=== PATIENT | female | born 1955 | race Caucasian/White ===

== ENCOUNTER 2017-05-28 10:25 | Emergency (ER) | payer BC ==
[~2017-05-28] VITALS: Ht 160 cm; Wt 64.7 kg
[~2017-05-28 10:25] MED LIST: ACET500C OR; EQUATE SLEEP AID PO; IBUP400T OR; No Historical Meds; VARE1TA OR
[2017-05-28] MEDS ORDERED: ONDANSETRON 4MG/2ML VIAL (J2405) IV ONE (11:00)
[2017-05-28] MEDS ORDERED: NS 1,000 ML IV ONE (11:00)
[2017-05-28] MEDS ORDERED: MORPHINE 4 MG/ML 1ML SYRINGE IV ONE ×2 (11:00→12:30)
[2017-05-28 11:58] LABS: ALBUMIN 3.9 GM/DL (3.2-5.2); ALBUMIN/GLOBULIN RATIO 1.08 (1.00-1.93); ALKALINE PHOSPHATASE 103 U/L (45-117); ALT/SGPT 20 U/L (12-78); AMYLASE 65 U/L (25-115); ANION GAP 6 MEQ/L (8-16); AST/SGOT 14 U/L (15-37); BILIRUBIN,DIRECT < 0.1 MG/DL (0.0-0.2); BILIRUBIN,TOTAL 0.4 MG/DL (0.2-1.0); BLOOD UREA NITROGEN 13 MG/DL (7-18); CALCIUM LEVEL 8.9 MG/DL (8.5-10.1); CARBON DIOXIDE LEVEL 27 MEQ/L (21-32); CHLORIDE LEVEL 108 MEQ/L (98-107); CREATININE FOR GFR 0.75 MG/DL (0.55-1.02); GLOMERULAR FILTRATION RATE > 60.0 (>51); GLUCOSE, FASTING 102 MG/DL (70-105); SODIUM LEVEL 141 MEQ/L (136-145); TOTAL PROTEIN 7.5 GM/DL (6.4-8.2)
[2017-05-28 12:25] LABS: BASO # 0.1 K/mm3 (0.0-0.2); BASO % 0.8 % (0.0-1.0); EOS # 0.1 K/mm3 (0.0-0.50); EOS % 0.8 % (0.0-3.0); LARGE UNSTAINED CELL # 0.2 K/mm3 (0.0-0.4); LARGE UNSTAINED CELL % 1.9 % (0.0-4.0); LYMPH # 2.7 K/mm3 (1.5-4.5); LYMPH % 33.9 % (24.0-44.0); MEAN CORPUSCULAR HEMOGLOBIN 33.3 pg (27.0-33.0); MEAN CORPUSCULAR HGB CONC 35.5 g/dl (32.0-36.5); MEAN CORPUSCULAR VOLUME 93.8 fl (80.0-96.0); MONO # 0.4 K/mm3 (0.0-0.8); MONO % 4.8 % (0.0-5.0); NEUTROPHILS # 4.6 K/mm3 (1.8-7.7); NEUTROPHILS % 57.8 % (36.0-66.0); PLATELET COUNT, AUTOMATED 258 k/mm3 (150-450); RED CELL DISTRIBUTION WIDTH 11.8 % (11.5-14.5); WHITE BLOOD COUNT 7.9 K/mm3 (4.0-10.0)
[2017-05-28] MEDS ORDERED: ISOVUE-370 76% 100ML VIAL (Q9967) As Ordered ONE (12:29)
[2017-05-28 12:42] LABS: CONTROL LINE UCG INT CTR LINE PRESENT
--- NOTE | 2017-05-28 12:54 | REP ---
Clinical: Epigastric and right upper quadrant pain. Technique: Axial contrast enhanced images from the lung bases to the pubic symphysis using 100 ml Isovue 370 intravenous contrast material with coronal and sagittal re-formations. Comparison: 10/01/2014. Findings: Lung bases demonstrate mild bibasilar interstitial and dependent changes. Visualized heart and pericardium normal. Liver, spleen, pancreas, bilateral adrenal glands and kidneys are normal. The patient is status post cholecystectomy. The enteric system is without obstruction or acute inflammatory process. Scattered diverticula noted without acute diverticulitis. Pelvis demonstrates normal bladder. Heterogeneous myomatous changes to the uterus noted. No ascites. No adenopathy. No free air. No obvious mass lesion. Abdominal aorta and vasculature without aneurysm or dissection. Musculoskeletal structures demonstrate degenerative changes. Impression: 1. Myomatous changes to the uterus. 2. No acute abdominopelvic pathology otherwise appreciated. Signed by Valerio Carlos MD 05/28/2017 12:45 P
[2017-05-28 13:53] VITALS: BP 112/75
== END 2017-05-28 13:55 | disposition home or self-care (01) ==
LOC: M ED 10:25
DX: K29.00 Acute gastritis without bleeding (principal); K58.0 Irritable bowel syndrome with diarrhea; Z87.19 Personal history of other diseases of the digestive system; F17.210 Nicotine dependence, cigarettes, uncomplicated; Z88.5 Allergy status to narcotic agent; Z88.6 Allergy status to analgesic agent
CPT/HCPCS: 74177; 80048; 80076; 81001; 82150; 83690; 84702; 84703; 85025; 96361; 96374; 96375; 96376; 99283; J2405; Q9967

== ENCOUNTER → 2017-09-15 | Outpatient (CLI) | payer BC ==
[~2017-09-15] MED LIST changes: +GASTROGRAFIN SOLUTION 30ML (Q9963) As Ordered ONE; +ISOVUE-370 76% 100ML VIAL (Q9967) As Ordered ONE
--- NOTE | 2017-09-16 07:25 | REP ---
Clinical: Rectal mass. Technique: Axial contrast enhanced images from the lung bases to the pubic symphysis using oral and 100 ml Isovue 370 intravenous contrast material with precontrast images of the abdomen as well as coronal and sagittal re-formations. Comparison: 05/28/2017. Findings: Lung bases demonstrate chronic interstitial changes and mild scarring along with small scattered bullae and subtle right lower lobe subpleural fibrosis. Visualized portions of the heart and pericardium are normal. Liver, spleen, pancreas, bilateral adrenal glands and kidneys are normal. The patient is status post cholecystectomy. The enteric system is without obstruction or acute inflammatory process. By CT evaluation no obvious rectal mass is identified and the perirectal and perineal fat appear normal. Pelvis demonstrates normal bladder and age-appropriate uterus/adnexa although myomatous changes to the uterus are suggested. No ascites. No adenopathy. No obvious abdominopelvic mass lesion. Vasculature is within normal limits. Surrounding musculoskeletal structures demonstrates age-related degenerative changes. Impression: 1. Lung bases demonstrate chronic interstitial changes as noted above. 2. Myomas changes to the uterus suggested. 3. No obvious enteric or specifically rectal mass lesion identified. 4. No further acute abdominopelvic pathology appreciated. Signed by Valerio Carlos MD 09/16/2017 07:16 A
== END ==
LOC: M RAD 13:03
PROVIDERS: ATTEND Internal Medicine Gastroenterology
DX: J84.9 Interstitial pulmonary disease, unspecified (principal); D25.9 Leiomyoma of uterus, unspecified; R19.00 Intra-abdominal and pelvic swelling, mass and lump, unspecified site
CPT/HCPCS: 74178; Q9963; Q9967

== ENCOUNTER 2017-10-14 05:48 | Inpatient (IN) | payer BC ==
--- NOTE | 2017-10-13 15:07 | HPE ---
DATE OF ADMISSION: 10/14/2017 HISTORY OF PRESENT ILLNESS The patient is a 62-year-old female who underwent colonoscopy for some diarrhea and some rectal bleeding. 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 No evidence of definitive invasive component was associated with this. PAST MEDICAL HISTORY: Significant for history of arthritis, history of headache, history of heartburn reflux, history of insomnia, history of irritable bowel syndrome, history of pancreatitis, history of cholecystectomy, history of tubal ligation, history of tonsillectomy, history of right breast cyst removal. MEDICATIONS: - Aleve - omeprazole PHYSICAL EXAMINATION: Reveals a 62-year-old female who looks stated age. HEENT is unremarkable. Neck is supple without adenopathy. Lungs are clear to auscultation without crackles, wheezes or rhonchi. Heart is regular without murmur. Abdomen is soft, nondistended, nontender. No splenomegaly is appreciated. No guarding. No rebound. No peritoneal signs. IMPRESSION AND PLAN: The patient has a colon cancer at the rectosigmoid junction and the plan is for a laparoscopic low anterior resection. The risks, as well as benefits have been discussed with her at length, those including, but not limited to infection, bleeding, damage to surrounding structures including bowel, bladder, nerves, vessels, kidney, ureter, pancreas, spleen and possible need for open operative intervention. She also understands there is a small risk for ostomy placement. She would like to proceed with laparoscopic colon resection as scheduled and will undergo a mechanical, as well as antibiotic bowel prep. Will have a Whiteside, TEDs and sequentials placed intraoperatively.
[2017-10-14] VITALS (9 sets, daily range): BP systolic 106–140; BP diastolic 60–75
[~2017-10-14] VITALS: Ht 160 cm; Wt 63.5 kg
[~2017-10-14 05:48] MED LIST changes: -GASTROGRAFIN SOLUTION 30ML (Q9963) As Ordered ONE; -ISOVUE-370 76% 100ML VIAL (Q9967) As Ordered ONE
[2017-10-14] MEDS ORDERED: ERTAPENEM SODIUM 1 GM in NS MINI-BAG PLUS 50 ML IV ONE (06:00)
[2017-10-14] MEDS ORDERED: LR 1,000 ML IV ONE (06:15)
[2017-10-14] MEDS ORDERED: BUPIVACAINE LIPOSOME/PF 1.3% 20 ML VIAL (13.3MG/ML)(EXPAREL) As Ordered ONE (07:15)
[2017-10-14] MEDS ORDERED: BUPIVACAINE/EPIN 0.25% 30 ML VIAL As Ordered ONE (07:15)
[2017-10-14] MEDS ORDERED: GLUCAGON FOR INJ 1 MG VIAL (J1610) As Ordered ONE (07:15)
[2017-10-14] MEDS ORDERED: PROPOFOL 200 MG/20 ML VIAL As Ordered ONE (07:17)
[2017-10-14] MEDS ORDERED: fentaNYL 250 MCG/5 ML INJECTION (J3010) As Ordered ONE (07:17)
[2017-10-14] MEDS ORDERED: LIDOCAINE 2% INJ 100 MG/5 ML SDV (FOR ANES.) As Ordered ONE (07:17)
[2017-10-14] MEDS ORDERED: ROCURONIUM BROMIDE 50 MG/5 ML VIAL/SYRINGE As Ordered ONE ×2 (07:17→08:24)
[2017-10-14] MEDS ORDERED: MIDAZOLAM INJ 2 MG/2 ML VIAL (J2250) As Ordered ONE (07:17)
[2017-10-14] MEDS ORDERED: PHENYLephrine HCL 500 MCG/5 ML (100MCG/ML) SYRINGE (J2370) As Ordered ONE (08:08)
[2017-10-14] MEDS ORDERED: ePHEDrine SULFATE 25 MG/5 ML(5MG/ML) SYRINGE As Ordered ONE (08:08)
[2017-10-14] MEDS ORDERED: GLYCOPYRROLATE INJ 0.2 MG/ML 2 ML VIAL As Ordered ONE (08:26)
[2017-10-14] MEDS ORDERED: NEOSTIGMINE 10 MG/10 ML VIAL (J2710) As Ordered ONE (08:26)
[2017-10-14] MEDS ORDERED: ONDANSETRON 4MG/2ML VIAL (J2405) As Ordered ONE (08:26)
[2017-10-14] MEDS ORDERED: HYDROmorphone HCL 2 MG/ML 1ML VIAL (J1170) As Ordered ONE (08:32)
[2017-10-14] MEDS ORDERED: BUPIVACAINE HCL 0.25% 30 ML VIAL As Ordered ONE (08:44)
[2017-10-14] MEDS ORDERED: NALOXONE INJ 0.4 MG/1 ML VIAL (J2310) IV PRN (10:30)
[2017-10-14] MEDS ORDERED: METOCLOPRAMIDE INJ 10MG/2ML VIAL (J2765) IV PRN (10:30)
[2017-10-14] MEDS ORDERED: IPRATROPIUM 0.5MG/ALBUTEROL 2.5MG INH SOL UD 3ML (DUONEB)(J7620) NEB PRN (10:30)
[2017-10-14] MEDS ORDERED: PROMETHAZINE INJ 25 MG/ML VIAL (J2550) IV PRN (10:30)
[2017-10-14] MEDS ORDERED: NALBUPHINE HCL 10 MG/ML AMP (J2300) IV PRN (10:30)
[2017-10-14] MEDS ORDERED: diphenhydrAMINE INJ 50MG/ML VIAL (J1200) IV PRN (10:30)
[2017-10-14] MEDS ORDERED: ONDANSETRON 4MG/2ML VIAL (J2405) IV PRN ×2 (10:30→11:15)
[2017-10-14] MEDS ORDERED: EPIDURAL/PCA KEYS XX PRN (10:30)
[2017-10-14] MEDS ORDERED: MORPHINE 1MG/ML IN 0.9% NACL 100ML IV BAG IV PRN (11:00)
[2017-10-14] MEDS ORDERED: NS 1,000 ML IV SCH (11:00)
[2017-10-14] MEDS ORDERED: MORPHINE 1MG/ML IN 0.9% NACL 100ML IV BAG As Ordered ONE (11:07)
[2017-10-14] MEDS ORDERED: LR 1,000 ML IV SCH (11:15)
[2017-10-14] MEDS ORDERED: fentaNYL 100 MCG/2 ML INJECTION (J3010) IV PRN (11:15)
[2017-10-14] MEDS ORDERED: MORPHINE 10 MG/ML 1ML VIAL As Ordered ONE (13:55)
[2017-10-14] MEDS ORDERED: KETOROLAC 30 MG/ML VIAL (J1885) As Ordered ONE (13:55)
[2017-10-14] MEDS: MORPHINE 2 MG/ML 1ML SYRINGE IV PRN ×3 (14:00→14:12)
[2017-10-14] MEDS: IPRATROPIUM 0.5MG/ALBUTEROL 2.5MG INH SOL UD 3ML (DUONEB)(J7620) NEB SCH ×3 (14:00→21:19)
[2017-10-14] MEDS: KETOROLAC 30 MG/ML VIAL (J1885) IV PRN ×2 (14:03→20:43)
[2017-10-14] MEDS: PANTOPRAZOLE 40MG INJ (PROTONIX) (C9113) IV SCH (15:09)
[2017-10-14] MEDS: NS 1,000 ML IV SCH ×2 (15:09→18:55)
[2017-10-15] VITALS: BP_SYST 116; BP_SYST 117; BP_DIAS 62; BP_DIAS 65
[2017-10-15] MEDS: NS 1,000 ML IV SCH ×3 (01:36→19:21)
[2017-10-15] MEDS: ONDANSETRON 4MG/2ML VIAL (J2405) IV PRN ×3 (03:02→15:58)
[2017-10-15] MEDS: KETOROLAC 30 MG/ML VIAL (J1885) IV PRN ×3 (03:03→15:44)
[2017-10-15 04:00] VITALS: BP 108/53
[2017-10-15] MEDS: IPRATROPIUM 0.5MG/ALBUTEROL 2.5MG INH SOL UD 3ML (DUONEB)(J7620) NEB SCH ×3 (06:07→20:00)
[2017-10-15 07:13] LABS: MEAN CORPUSCULAR HEMOGLOBIN 31.2 pg (27.0-33.0); MEAN CORPUSCULAR VOLUME 97.5 fl (80.0-96.0); PLATELET COUNT, AUTOMATED 217 10^3/uL (150-450); RED CELL DISTRIBUTION WIDTH 12.3 % (11.5-14.5); WHITE BLOOD COUNT 7.8 10^3/uL (4.0-10.0)
[2017-10-15 07:36] LABS: ANION GAP 5 MEQ/L (8-16); BLOOD UREA NITROGEN 7 MG/DL (7-18); CALCIUM LEVEL 7.5 MG/DL (8.8-10.2); CARBON DIOXIDE LEVEL 27 MEQ/L (21-32); CHLORIDE LEVEL 110 MEQ/L (98-107); CREATININE FOR GFR 0.62 MG/DL (0.55-1.02); GLOMERULAR FILTRATION RATE > 60.0 (>45); GLUCOSE, FASTING 108 MG/DL (80-110); POTASSIUM SERUM 3.9 MEQ/L (3.5-5.1); SODIUM LEVEL 142 MEQ/L (136-145)
[2017-10-15 08:00] VITALS: BP 118/66
[2017-10-15] MEDS: ERTAPENEM SODIUM 1 GM in NS MINI-BAG PLUS 50 ML IV SCH (08:14)
[2017-10-15] MEDS: PANTOPRAZOLE 40MG INJ (PROTONIX) (C9113) IV SCH (08:15)
[2017-10-15 12:00] VITALS: BP 107/55
[2017-10-15] MEDS ORDERED: ACETAMINOPHEN 500 MG TAB PO PRN (15:30)
[2017-10-15 16:00] VITALS: BP 124/59
[2017-10-15 20:00] VITALS: BP 102/51
[2017-10-15] MEDS: ACETAMINOPHEN 500 MG TAB PO PRN (21:04)
[2017-10-16] VITALS (7 sets, daily range): BP systolic 105–129; BP diastolic 55–74; O2SAT 92
[2017-10-16] MEDS: KETOROLAC 30 MG/ML VIAL (J1885) IV PRN ×3 (00:05→16:04)
[2017-10-16] MEDS: NS 1,000 ML IV SCH ×2 (00:05→12:41)
[2017-10-16] MEDS: IPRATROPIUM 0.5MG/ALBUTEROL 2.5MG INH SOL UD 3ML (DUONEB)(J7620) NEB SCH ×4 (02:00→19:39)
[2017-10-16 06:51] LABS: MEAN CORPUSCULAR HEMOGLOBIN 32.7 pg (27.0-33.0); MEAN CORPUSCULAR HGB CONC 33.4 g/dl (32.0-36.5); MEAN CORPUSCULAR VOLUME 97.7 fl (80.0-96.0); PLATELET COUNT, AUTOMATED 184 10^3/uL (150-450); RED CELL DISTRIBUTION WIDTH 11.9 % (11.5-14.5); WHITE BLOOD COUNT 7.6 10^3/uL (4.0-10.0)
[2017-10-16 07:16] LABS: ANION GAP 6 MEQ/L (8-16); BLOOD UREA NITROGEN 6 MG/DL (7-18); CALCIUM LEVEL 8.1 MG/DL (8.8-10.2); CARBON DIOXIDE LEVEL 26 MEQ/L (21-32); CHLORIDE LEVEL 110 MEQ/L (98-107); CREATININE FOR GFR 0.61 MG/DL (0.55-1.02); GLOMERULAR FILTRATION RATE > 60.0 (>45); GLUCOSE, FASTING 99 MG/DL (80-110); POTASSIUM SERUM 3.9 MEQ/L (3.5-5.1); SODIUM LEVEL 142 MEQ/L (136-145)
[2017-10-16] MEDS: ERTAPENEM SODIUM 1 GM in NS MINI-BAG PLUS 50 ML IV SCH (08:21)
[2017-10-16] MEDS: ONDANSETRON 4MG/2ML VIAL (J2405) IV PRN (08:21)
[2017-10-16] MEDS: PANTOPRAZOLE 40MG INJ (PROTONIX) (C9113) IV SCH (08:22)
[2017-10-16] MEDS: ACETAMINOPHEN 500 MG TAB PO PRN (08:24)
--- NOTE | 2017-10-16 13:54 | RO ---
DATE OF PROCEDURE: 10/14/2017 PREOPERATIVE DIAGNOSIS: Colon cancer rectosigmoid junction. POSTOPERATIVE DIAGNOSES: 1. Colon cancer rectosigmoid junction. 2. Epigastric hernia. PROCEDURE PERFORMED: 1. Laparoscopic low anterior resection with coloproctostomy. 2. Epigastric hernia repair. SURGEON: Dr. Adam Bowles. HAND SINGER: Dr. Chicho Brooks. (Dr. Brooks provided retraction exposure assistance with the colorectal anastomosis and closure of the epigastric hernia). ESTIMATED BLOOD LOSS: Minimal. FLUIDS: Crystalloid. ANESTHESIA: General endotracheal anesthesia. DISPOSITION: The patient was brought to the recovery room awake, alert hemodynamic stable. DESCRIPTION OF PROCEDURE: The patient was brought to the operating room and was given general anesthesia. After adequate anesthesia and preoperative antibiotics were given, the patient was prepped and draped in the usual sterile fashion. Next a periumbilical incision was made with skin knife. Electrocautery was used cut through dermis down to the fascia. Fascia was grasped with Hector clamps, elevated and Veress needle placed into the abdominal cavity and insufflated to 15 mm pressure. A dilating 10 mm trocar was placed at the umbilicus and there were some midline adhesions appreciated as well as left lower quadrant adhesions appreciated. Thus left upper quadrant, left lower quadrant 5 mm trocar were placed to take down these adhesions all the periumbilical/lower abdominal adhesions were taken down with harmonic scalpel and then some of the adhesions down in the pelvis were taken down as well with a harmonic scalpel. The right-sided 12 mm right lower quadrant as well as right upper quadrant 5 mm trocar was placed under direct visualization. Next, the patient was placed in steep Trendelenburg position and right side down and the small bowel was delivered out of the pelvis. There were some adhesions of the sigmoid colon up against the left lateral abdominal wall and down to the area in the iliac crest. These were taken down with harmonic scalpel suggesting that she may have had an episode of diverticulitis in the past. However, the bowel in this area appeared normal without evidence of stenosis or scarring. Dissection continued along the white line of Toldt down into the pelvis. Interestingly enough, she had a very redundant distal sigmoid colon but on a very short mesentery. Eventually, this was mobilized all the way down to the rectum on the white line of Toldt bilaterally down mobilizing this rectum distally and I could palpate with the trocars/instruments, at the level of the rectosigmoid junction, there was the mass that was appreciated. Thus dissection on the peritoneum on the right side was performed taking this down with harmonic scalpel and then taking care proximally as well, the inferior mesenteric artery/sigmoid branch was appreciated and then coming off of this was the rectal branch of the sigmoid. After this somewhat shortened mesentery was able to be mobilized, it was mobilized off the pelvic sidewall until I felt that I was proximal on this and the sigmoid branch coming off to the bowel in this area was able to be transected using a DAWN stapler at its origin. The mesentery had been previously transected in this area with the harmonic scalpel up to where I felt that this bowel would be able to be reached down in the pelvis. Clips were placed on the bowel in this area for marker when the resection was made later. The mesentery of the colon had been taken off its avascular plane posteriorly and dissection continued distally to where I felt the mid portion of the rectum was well circumscribed evaluated and then a dissection between the rectal branch and the rectum was performed bluntly and some harmonic scalpel. The rectal branch was taken distally in this area with an echelon white load as well. Good hemostasis was achieved and the bowel was resected using an echelon green load. After this, the pelvis was copiously irrigated until clear and the periumbilical incision was made larger and the bowel brought up through this site. The proximal bowel was opened at the level previously identified and a 25 EA sizer was placed into this and revealed that it fit easily but still I did not feel a 29 would allow this to be adequately placed/stretch enough. Thus the 29 EA anvil was placed in this proximal area. The bowel was resected with a DAWN stapler and the anvil brought out next to the anastomosis. This was reinforced along the tenia on this area with a #3-0 Vicryl surrounding the anvil. This was placed into the abdominal cavity and #1 Vicryl in a running manner, was used to close the fascia. I could palpate an epigastric hernia at this time and it was visualized during our dissection earlier but it was far enough that I was not able to close this from my periumbilical incision. Next, the anastomosis was created with an end-to-end anastomosis. The donuts were intact. Under insufflation, air insufflation was intact and no evidence of air leak was appreciated. The pelvis was copiously irrigated until clear and then the epigastric hernia was closed with two [id number] 0 Vicryl sutures in a transverse manner using a Rigo-Dempsey device. The right lower quadrant 12 mm trocar was also closed with a Rigo-Dempsey. All trocars were removed under direct visualization. The #1 Vicryl was used to finish off closing the incision. Gowns, gloves and irrigation were performed with a separate closure tray and eventually, all incisions were closed with kaushik. Dry sterile dressing was applied and previously a 19 Max-Valdez drain had been left in the pelvis and came out through a lateral 5 mm trocar site. This was sutured in place with a drain stitch. Aspiryl was placed in multiple areas, specifically in the epigastric area and periumbilical area prior to the patient awakening and the patient was brought to the recovery room awake, alert and hemodynamically stable. Sponge and needle counts correct times two.
[2017-10-17] VITALS: BP 130/74
[2017-10-17] MEDS: IPRATROPIUM 0.5MG/ALBUTEROL 2.5MG INH SOL UD 3ML (DUONEB)(J7620) NEB SCH ×4 (01:27→20:00)
[2017-10-17 04:00] VITALS: BP 138/69
[2017-10-17] MEDS: ONDANSETRON 4MG/2ML VIAL (J2405) IV PRN ×2 (04:49→20:04)
[2017-10-17 06:39] LABS: MEAN CORPUSCULAR HEMOGLOBIN 31.9 pg (27.0-33.0); MEAN CORPUSCULAR HGB CONC 33.5 g/dl (32.0-36.5); MEAN CORPUSCULAR VOLUME 95.1 fl (80.0-96.0); PLATELET COUNT, AUTOMATED 209 10^3/uL (150-450); RED CELL DISTRIBUTION WIDTH 11.9 % (11.5-14.5)
[2017-10-17 07:01] LABS: ANION GAP 5 MEQ/L (8-16); BLOOD UREA NITROGEN 9 MG/DL (7-18); CALCIUM LEVEL 8.2 MG/DL (8.8-10.2); CARBON DIOXIDE LEVEL 28 MEQ/L (21-32); CHLORIDE LEVEL 110 MEQ/L (98-107); CREATININE FOR GFR 0.48 MG/DL (0.55-1.02); GLOMERULAR FILTRATION RATE > 60.0 (>45); GLUCOSE, FASTING 99 MG/DL (80-110); POTASSIUM SERUM 3.9 MEQ/L (3.5-5.1); SODIUM LEVEL 143 MEQ/L (136-145)
[2017-10-17 08:00] VITALS: BP 143/72
[2017-10-17] MEDS: PANTOPRAZOLE 40MG INJ (PROTONIX) (C9113) IV SCH (08:34)
[2017-10-17 12:00] VITALS: BP 112/63
[2017-10-17] MEDS: traMADol 50 MG TAB PO PRN (12:02)
[2017-10-17 16:30] VITALS: BP 128/59
[2017-10-17 20:00] VITALS: BP 133/66
[2017-10-17] MEDS: KETOROLAC 30 MG/ML VIAL (J1885) IV PRN (20:05)
[2017-10-18] VITALS: BP 150/70
[2017-10-18] MEDS: IPRATROPIUM 0.5MG/ALBUTEROL 2.5MG INH SOL UD 3ML (DUONEB)(J7620) NEB SCH ×4 (01:31→19:12)
[2017-10-18 04:00] VITALS: BP 143/73
[2017-10-18] MEDS: ONDANSETRON 4MG/2ML VIAL (J2405) IV PRN (04:19)
[2017-10-18] MEDS: KETOROLAC 30 MG/ML VIAL (J1885) IV PRN ×2 (04:20→16:11)
[2017-10-18 06:56] LABS: MEAN CORPUSCULAR HEMOGLOBIN 31.9 pg (27.0-33.0); MEAN CORPUSCULAR VOLUME 93.8 fl (80.0-96.0); PLATELET COUNT, AUTOMATED 223 10^3/uL (150-450); RED CELL DISTRIBUTION WIDTH 11.7 % (11.5-14.5); WHITE BLOOD COUNT 5.6 10^3/uL (4.0-10.0)
[2017-10-18 07:24] LABS: ANION GAP 7 MEQ/L (8-16); CALCIUM LEVEL 8.4 MG/DL (8.8-10.2); CARBON DIOXIDE LEVEL 28 MEQ/L (21-32); CHLORIDE LEVEL 109 MEQ/L (98-107); CREATININE FOR GFR 0.53 MG/DL (0.55-1.02); GLOMERULAR FILTRATION RATE > 60.0 (>45); GLUCOSE, FASTING 94 MG/DL (80-110); POTASSIUM SERUM 3.7 MEQ/L (3.5-5.1); SODIUM LEVEL 144 MEQ/L (136-145)
[2017-10-18 07:31] LABS: BLOOD UREA NITROGEN 13 MG/DL (7-18)
[2017-10-18 08:00] VITALS: BP 142/71
[2017-10-18] MEDS: PANTOPRAZOLE 40MG TAB (PROTONIX) PO SCH (09:08)
[2017-10-18] MEDS: traMADol 50 MG TAB PO PRN ×2 (09:13→19:52)
[2017-10-18 12:00] VITALS: BP 129/73
[2017-10-18 16:00] VITALS: BP 131/69
[2017-10-18 20:00] VITALS: BP 137/65
[2017-10-19] VITALS (7 sets, daily range): BP systolic 124–162; BP diastolic 60–74
[2017-10-19] MEDS: KETOROLAC 30 MG/ML VIAL (J1885) IV PRN (00:04)
[2017-10-19] MEDS: IPRATROPIUM 0.5MG/ALBUTEROL 2.5MG INH SOL UD 3ML (DUONEB)(J7620) NEB SCH ×5 (01:20→23:41)
[2017-10-19 07:10] LABS: MEAN CORPUSCULAR HEMOGLOBIN 32.4 pg (27.0-33.0); MEAN CORPUSCULAR HGB CONC 34.5 g/dl (32.0-36.5); MEAN CORPUSCULAR VOLUME 93.8 fl (80.0-96.0); PLATELET COUNT, AUTOMATED 253 10^3/uL (150-450); RED CELL DISTRIBUTION WIDTH 11.8 % (11.5-14.5); WHITE BLOOD COUNT 4.9 10^3/uL (4.0-10.0)
[2017-10-19 07:39] LABS: ANION GAP 6 MEQ/L (8-16); BLOOD UREA NITROGEN 17 MG/DL (7-18); CALCIUM LEVEL 8.5 MG/DL (8.8-10.2); CARBON DIOXIDE LEVEL 31 MEQ/L (21-32); CHLORIDE LEVEL 107 MEQ/L (98-107); CREATININE FOR GFR 0.67 MG/DL (0.55-1.02); GLOMERULAR FILTRATION RATE > 60.0 (>45); GLUCOSE, FASTING 89 MG/DL (80-110); POTASSIUM SERUM 3.7 MEQ/L (3.5-5.1); SODIUM LEVEL 144 MEQ/L (136-145)
[2017-10-19] MEDS: PANTOPRAZOLE 40MG TAB (PROTONIX) PO SCH (07:58)
[2017-10-19] MEDS: traMADol 50 MG TAB PO PRN ×3 (07:58→20:13)
[2017-10-19] MEDS: DICYCLOMINE 10 MG CAP PO SCH ×2 (11:51→20:12)
[2017-10-20 04:00] VITALS: BP 134/74
[2017-10-20 07:07] LABS: MEAN CORPUSCULAR HEMOGLOBIN 32.1 pg (27.0-33.0); MEAN CORPUSCULAR HGB CONC 34.8 g/dl (32.0-36.5); MEAN CORPUSCULAR VOLUME 92.3 fl (80.0-96.0); PLATELET COUNT, AUTOMATED 262 10^3/uL (150-450); RED CELL DISTRIBUTION WIDTH 11.7 % (11.5-14.5); WHITE BLOOD COUNT 5.6 10^3/uL (4.0-10.0)
[2017-10-20 07:19] LABS: ANION GAP 4 MEQ/L (8-16); BLOOD UREA NITROGEN 12 MG/DL (7-18); CALCIUM LEVEL 8.5 MG/DL (8.8-10.2); CARBON DIOXIDE LEVEL 31 MEQ/L (21-32); CHLORIDE LEVEL 105 MEQ/L (98-107); CREATININE FOR GFR 0.62 MG/DL (0.55-1.02); GLOMERULAR FILTRATION RATE > 60.0 (>45); GLUCOSE, FASTING 90 MG/DL (80-110); POTASSIUM SERUM 3.9 MEQ/L (3.5-5.1); SODIUM LEVEL 140 MEQ/L (136-145)
[2017-10-20 07:40] VITALS: BP 145/71
[2017-10-20] MEDS: traMADol 50 MG TAB PO PRN (07:41)
[2017-10-20] MEDS: IPRATROPIUM 0.5MG/ALBUTEROL 2.5MG INH SOL UD 3ML (DUONEB)(J7620) NEB SCH ×2 (07:57→13:29)
[2017-10-20] MEDS ORDERED: BISACODYL 10 MG SUPP PR ONE (08:45)
[2017-10-20] MEDS: PANTOPRAZOLE 40MG TAB (PROTONIX) PO SCH (08:52)
[2017-10-20] MEDS: DICYCLOMINE 10 MG CAP PO SCH (08:52)
[2017-10-20] MEDS ORDERED: DOCUSATE SODIUM 100 MG CAP PO SCH (09:00)
[2017-10-20] MEDS ORDERED: COLA100C5 PO (11:43)
[2017-10-20] MEDS ORDERED: TRAM50TA2 PO (11:43)
[2017-10-20 12:30] VITALS: BP 173/72
== END 2017-10-20 14:00 | disposition home or self-care (01) | DRG 221 ==
LOC: M OR 05:48 → M PED 11:36
PROVIDERS: ADMIT Surgery; ATTEND Surgery
PROC: 0WQF4ZZ Repair Abdominal Wall, Percutaneous Endoscopic Approach (ICD-10-PCS; 2017-10-14)
PROC: 0DBN4ZZ Excision of Sigmoid Colon, Percutaneous Endoscopic Approach (ICD-10-PCS; principal; 2017-10-14 07:30)
DX: C19 Malignant neoplasm of rectosigmoid junction (principal); K21.9 Gastro-esophageal reflux disease without esophagitis; G47.00 Insomnia, unspecified; K58.9 Irritable bowel syndrome, unspecified; M19.90 Unspecified osteoarthritis, unspecified site; K43.9 Ventral hernia without obstruction or gangrene; Z79.899 Other long term (current) drug therapy

== ENCOUNTER → 2017-11-06 | Outpatient (REF) | payer BC ==
[~2017-11-06] MED LIST changes: +COLA100C5 PO; +TRAM50TA2 PO
== END ==
LOC: M LAB REF 09:55
PROVIDERS: ATTEND Surgery
DX: C18.9 Malignant neoplasm of colon, unspecified (principal)

== ENCOUNTER → 2018-01-26 | Outpatient (CLI) | payer BC ==
[2018-01-26 13:37] LABS: BASO % 0.4 % (0.0-1.0); EOS # 0.1 10^3/uL (0.0-0.50); EOS % 1.7 % (0.0-3.0); HEMATOCRIT 43.9 % (36.0-47.0); HEMOGLOBIN 15.1 g/dl (12.0-16.0); IMMATURE GRANULOCYTE % 0.1 % (0-3.0); LYMPH # 3.5 10^3/uL (1.5-4.5); LYMPH % 45.4 % (24.0-44.0); MEAN CORPUSCULAR HEMOGLOBIN 31.7 pg (27.0-33.0); MEAN CORPUSCULAR HGB CONC 34.4 g/dl (32.0-36.5); MONO # 0.4 10^3/uL (0.0-0.8); MONO % 4.8 % (0.0-5.0); NEUTROPHILS # 3.7 10^3/uL (1.8-7.7); NEUTROPHILS % 47.6 % (36.0-66.0); PLATELET COUNT, AUTOMATED 271 10^3/uL (150-450); RED BLOOD COUNT 4.77 10^6/uL (4.00-5.40); RED CELL DISTRIBUTION WIDTH 12.7 % (11.5-14.5); WHITE BLOOD COUNT 7.7 10^3/uL (4.0-10.0)
[2018-01-26 13:56] LABS: VITAMIN B12 LEVEL 918 PG/ML
[2018-01-26 13:57] LABS: FOLATE 15.2 NG/ML
[2018-01-26 13:58] LABS: ALBUMIN 4.4 GM/DL (3.2-5.2); ALBUMIN/GLOBULIN RATIO 1.42 (1.00-1.93); ALKALINE PHOSPHATASE 121 U/L (45-117); ALT/SGPT 17 U/L (12-78); ANION GAP 6 MEQ/L (8-16); AST/SGOT 11 U/L (7-37); BILIRUBIN,TOTAL 0.5 MG/DL (0.2-1.0); BLOOD UREA NITROGEN 12 MG/DL (7-18); CALCIUM LEVEL 9.2 MG/DL (8.8-10.2); CARBON DIOXIDE LEVEL 28 MEQ/L (21-32); CHLORIDE LEVEL 106 MEQ/L (98-107); CHOLESTEROL LEVEL 229 MG/DL (<200); CHOLESTEROL RISK RATIO 3.523 (<5); CREATININE FOR GFR 0.84 MG/DL (0.55-1.30); FERRITIN 33 NG/ML (8-252); FREE T4 1.02 NG/DL (0.76-1.46); GLOMERULAR FILTRATION RATE > 60.0 (>45); GLUCOSE, FASTING 101 MG/DL (70-100); HDL CHOLESTEROL 65 MG/DL (>40); IRON (FE) 101 UG/DL (50-170); LDL CHOLESTEROL 143.2 MG/DL (<100); NON-HDL-C 164 MG/DL; PERCENT SATURATION 31.5 % (13.2-45.0); POTASSIUM SERUM 4.2 MEQ/L (3.5-5.1); SODIUM LEVEL 140 MEQ/L (136-145); TOTAL IRON BINDING CAPACITY 321 UG/DL (250-450); TOTAL PROTEIN 7.5 GM/DL (6.4-8.2); TRIGLYCERIDES LEVEL 104 MG/DL (<150)
== END ==
LOC: M LAB 13:00
DX: Z79.899 Other long term (current) drug therapy (principal)
CPT/HCPCS: 82746

== ENCOUNTER → 2018-06-08 | Outpatient (CLI) | payer BC | LOC: M WUC 11:13 | DX: M54.5 Low back pain (principal) | CPT/HCPCS: 72110 ==

== ENCOUNTER 2020-04-01 13:11 | Emergency (ER) | payer BC ==
[~2020-04-01] VITALS: Ht 160 cm; Wt 71.5 kg
[2020-04-01 14:43] LABS: BASO # 0.1 10^3/uL (0.0-0.2); BASO % 0.5 % (0.0-1.0); EOS # 0.1 10^3/uL (0.0-0.5); EOS % 1.4 % (0.0-3.0); HEMATOCRIT 47.8 % (36.0-47.0); HEMOGLOBIN 16.3 g/dl (12.0-15.5); LYMPH # 3.3 10^3/uL (1.5-5.0); LYMPH % 35.8 % (24.0-44.0); MEAN CORPUSCULAR HEMOGLOBIN 31.8 pg (27.0-33.0); MEAN CORPUSCULAR HGB CONC 34.1 g/dl (32.0-36.5); MEAN CORPUSCULAR VOLUME 93.4 fl (80.0-96.0); MONO # 0.6 10^3/uL (0.0-0.8); MONO % 6.1 % (0.0-5.0); NEUTROPHILS # 5.2 10^3/uL (1.5-8.5); NEUTROPHILS % 55.9 % (36.0-66.0); PLATELET COUNT, AUTOMATED 358 10^3/uL (150-450); RED BLOOD COUNT 5.12 10^6/uL (4.00-5.40); WHITE BLOOD COUNT 9.3 10^3/uL (4.0-10.0)
[2020-04-01] MEDS ORDERED: ISOVUE-370 76% 100ML VIAL As Ordered ONE (14:44)
[2020-04-01 15:18] LABS: ALBUMIN 3.9 GM/DL (3.2-5.2); BILIRUBIN,DIRECT 0.1 MG/DL (0.0-0.2); BILIRUBIN,TOTAL 0.4 MG/DL (0.2-1.0); TOTAL PROTEIN 7.9 GM/DL (6.4-8.2)
--- NOTE | 2020-04-01 15:22 | REP ---
Clinical: Acute chest pain. Technique: Axial contrast enhanced images from the thoracic inlet to the upper abdomen using 75 ml Isovue 370 intravenous contrast material with coronal and sagittal re-formations. Findings: Satisfactory enhancement of the pulmonary vasculature is achieved and no filling defects are identified to suggest pulmonary embolus. Thoracic aorta is normal caliber without aneurysm or dissection. Heart and pericardium are normal. Lung [place] demonstrate chronic interstitial changes and evidence for emphysematous disease. Innumerable scattered bilateral small noncalcified nodules measure up to approximately 10 mm. Mild adenopathy noted. No consolidation. No effusion. Impression: 1. No evidence for pulmonary embolus. 2. Innumerable bilateral pulmonary nodules measuring up to approximately 10 mm. Findings are concerning for possible underlying metastatic disease and require correlation. 3. Chronic mild emphysematous disease. Electronically Signed by Valerio Carlos MD 04/01/2020 03:13 P
--- NOTE | 2020-04-01 16:16 | REP ---
Clinical: Pain on deep inspiration . Comparison: 10/08/2017 . Technique: PA and lateral. Findings: The mediastinum and cardiac silhouette are normal. The lung [place] are clear and without acute consolidation, effusion, or pneumothorax. The skeletal structures are intact and normal. Impression: 1. No acute cardiopulmonary process. Electronically Signed by Valerio Carlos MD 04/01/2020 04:07 P
--- NOTE | 2020-04-01 16:21 | REP ---
Clinical: Upper abdominal pain. Technique: Axial noncontrast images from the lung bases to the pubic symphysis with coronal and sagittal re-formations. Comparison: 09/15/2017. Findings: Liver, spleen, pancreas, bilateral adrenal glands and kidneys are essentially normal for noncontrast evaluation. 9 mm left adrenal adenoma is suggested and remains stable. The enteric system is without obstruction or acute inflammatory process. Normal cecum, terminal ileum and appendix identified in the right lower quadrant. Evidence for prior partial sigmoid resection/anastomoses noted. Pelvis demonstrates normal bladder and age-appropriate uterus/adnexa. No ascites. No free air. No adenopathy. Abdominal aorta without aneurysm. Musculoskeletal structures are intact. Small fat containing supraumbilical hernia noted. Musculoskeletal structures are intact. Impression: 1. No acute abdominopelvic pathology appreciated. 2. No ascites, focal inflammatory stranding, or adenopathy. 3. Small fat containing supraumbilical midline ventral hernia. Electronically Signed by Valerio Carlos MD 04/01/2020 04:13 P
[2020-04-01 17:02] VITALS: BP 136/81
--- NOTE | 2020-04-02 09:19 | ED PDOC ---
Post-Departure Follow-Up cta chest faxed to [facility] for fu Billie Clifford MD April 02, 2020 09:19
== END 2020-04-01 17:03 | disposition home or self-care (01) ==
LOC: M ED 13:11
DX: N63.10 Unspecified lump in the right breast, unspecified quadrant (principal); C19 Malignant neoplasm of rectosigmoid junction; R91.8 Other nonspecific abnormal finding of lung field; J43.9 Emphysema, unspecified; F17.210 Nicotine dependence, cigarettes, uncomplicated; Z88.5 Allergy status to narcotic agent; Z79.899 Other long term (current) drug therapy
CPT/HCPCS: 36415; 71046; 71275; 74176; 80047; 80076; 83690; 85025; 99284; Q9967

== ENCOUNTER → 2020-04-11 | Outpatient (CLI) | payer BC ==
--- NOTE | 2020-04-12 08:33 | REP ---
PET/CT: HISTORY: Staging colon carcinoma. 2.8 cm rectosigmoid adenocarcinoma post resection October 14, 2017. Innumerable bilateral lung lesions consistent with metastatic disease. COMPARISONS: Comparison CT abdomen and pelvis April 01, 2020. Comparison CT chest April 01, 2020. TECHNIQUE: 54 minutes following the intravenous injection of a 8.26 mCi dose of F-18 FDG, three-dimensional PET scintigraphy is acquired from the skull base to the proximal thighs. Triplanar noncontrast CT scanning is acquired through the same anatomic range for attenuation correction, and image registration with scan parameters optimized to minimize radiation exposure to the patient. PET scintigraphy and CT datasets were fused and displayed on a workstation with multiplanar and projection display capability. PET/CT FINDINGS: In the head and neck soft tissues, there is a normal-size hypermetabolic lymph node focus in the posterior aspect of the superficial lobe of the right parotid gland. This demonstrates maximum standard uptake value of 6.07. It measures under a centimeter and is of uncertain significance. A lymph node at the same location on the left shows a maximum standard uptake value of 3.07. No other head and neck abnormal uptake is appreciated. There are two lymph nodes visible in the mediastinum which do not appear pathologically enlarged. In the AP window region a lymph node demonstrates maximum SUV value 2.52 and in the precarinal region a lymph node measures SUV maximum of 2.77. These are felt to be equivocal. There is discernible metabolic activity in several of the multiple pulmonary nodules. One of these is in hypermetabolic range. This is posteriorly positioned in the right lower lobe. This nodule demonstrates maximum standard uptake value of 3.19. The other visible nodules demonstrate activity ranges well below the SUV value of 2.0. In the abdomen and pelvis, there is normal distribution of tracer. No abnormal hypermetabolic uptake is seen in the abdomen pelvis. IMPRESSION: There is visible metabolic activity in several of the larger pulmonary nodules. Only one of these is in the hypermetabolic range, 3.19. This is in the right lower lobe. Incidental note is made of hypermetabolic uptake in a normal size lymph node in the right parotid gland. This is of uncertain significance. Electronically Signed by Marbin Nelson MD 04/12/2020 10:55 A
== END ==
LOC: M PLARAD 15:24
PROVIDERS: ATTEND Internal Medicine Hematology & Oncology
DX: C18.7 Malignant neoplasm of sigmoid colon (principal); R91.8 Other nonspecific abnormal finding of lung field
CPT/HCPCS: 78815; A9552

== ENCOUNTER 2020-04-13 11:20 | Emergency (ER) | payer BC ==
[~2020-04-13] VITALS: Ht 160 cm; Wt 70.7 kg
[2020-04-13 11:21] VITALS: BP 108/67
== END 2020-04-13 12:22 | disposition home or self-care (01) ==
LOC: M ED 11:20

== ENCOUNTER → 2020-04-14 | Outpatient (CLI) | payer BC ==
[~2020-04-14] MED LIST changes: +PROHANCE 279.3MG/ML 15ML VIAL As Ordered ONE
--- NOTE | 2020-04-14 14:07 | REP ---
MRI BRAIN WITHOUT AND WITH IV CONTRAST: HISTORY: Metastatic colon carcinoma. Evaluate for metastasis. Comparison head CT study is from October 08, 2008. 14 mL of intravenous ProHance is administered. TECHNIQUE: Axial and sagittal imaging planes are utilized for T1- and T2-weighted scans. Sequences include spin-echo, fast spin echo, FLAIR, and diffusion weighted sequences. MRI FINDINGS: No bony calvarial lesion is seen. Craniocervical junction and upper cervical cord are unremarkable. No intraorbital lesion is seen. There is no MR evidence of significant paranasal sinus disease. The skull base and deep facial soft tissues are unremarkable and symmetric. Lateral, third, and fourth ventricles are normal in size and position. Fernandes-white differentiation pattern is normal above and below the tentorium. There is a single focus of T2 hyperintensity in the subcortical white matter of the right posterior frontal lobe consistent with minimal small vessel change. Fernandes-white differentiation pattern is otherwise normal. There is no evidence of intracranial mass lesion. Diffusion-weighted scans show no evidence of restricted diffusion to suggest acute ischemia or other abnormality. Postcontrast images show enhancement in normal vasculature. No abnormal intracranial contrast enhancement is appreciated. No evidence to suggest intracranial metastasis. IMPRESSION: There is no evidence of intracranial metastasis. Electronically Signed by Marbin Nelson MD 04/14/2020 02:47 P
== END ==
LOC: M RAD 10:51
PROVIDERS: ATTEND Internal Medicine Hematology & Oncology
DX: C18.9 Malignant neoplasm of colon, unspecified (principal)
CPT/HCPCS: 70553; A9576

== ENCOUNTER → 2020-04-21 | Outpatient (CLI) | payer BC ==
[~2020-04-21] MED LIST changes: -PROHANCE 279.3MG/ML 15ML VIAL As Ordered ONE
[2020-04-21 13:24] LABS: PLATELET COUNT, AUTOMATED 306 10^3/uL (150-450)
[2020-04-21 13:32] LABS: INR 0.92; PROTHROMBIN TIME 12.1 SECONDS (11.8-14.0)
[2020-04-21 13:33] LABS: PARTIAL THROMBOPLASTIN TIME 35.3 SECONDS (25.0-38.4)
[2020-04-21 14:19] LABS: CA19-9 TUMOR MARKER,CARBOHYDRA 5.7 U/ML (<35.0)
[2020-04-28 15:07] LABS: ANGIOTENSIN 1 CONVERTING ENZYM 28 U/L (14-82); ASPERGILLUS FLAVUS ABY Negative (Neg:<1:1); ASPERGILLUS FUMIGATUS ABY Negative (Neg:<1:1); ASPERGILLUS NIGER ABY Negative (Neg:<1:1); BLASTOMYCES ANTIBODY LEVEL Negative (Neg:<1:1); CRYPTOCOCCUS ANTIGEN SER Negative (Negative); HISTOPLASMOSIS ANTIBODY Negative (Neg:<1:1)
== END ==
LOC: M LAB 12:13
PROVIDERS: ATTEND Internal Medicine Pulmonary Disease
DX: Z01.812 Encounter for preprocedural laboratory examination (principal); R91.8 Other nonspecific abnormal finding of lung field

== ENCOUNTER → 2020-04-30 | Outpatient (CLI) | payer BC | LOC: M LABSMTC 10:20 | PROVIDERS: ATTEND Anesthesiology | DX: Z01.818 Encounter for other preprocedural examination (principal); Z11.59 Encounter for screening for other viral diseases | CPT/HCPCS: C9803; U0003 ==

== ENCOUNTER 2020-05-03 07:26 | Day surgery (SDC) | payer BC ==
[~2020-05-03] VITALS: Ht 160 cm; Wt 70.2 kg
[~2020-05-03 07:26] MED LIST changes: +LR 1,000 ML IV ONE
[2020-05-03] MEDS ORDERED: ONDANSETRON 4MG/2ML VIAL As Ordered ONE ×2 (08:26→10:22)
[2020-05-03] MEDS ORDERED: MIDAZOLAM INJ 2MG/2ML VIAL (J2250 PER 1MG) As Ordered ONE (08:26)
[2020-05-03] MEDS ORDERED: fentaNYL 100 MCG/2 ML INJECTION (J3010) As Ordered ONE ×2 (08:26→12:39)
[2020-05-03] MEDS ORDERED: ROCURONIUM BROMIDE 50 MG/5 ML VIAL As Ordered ONE (08:26)
[2020-05-03] MEDS ORDERED: propofoL 200 MG/20 ML VIAL As Ordered ONE (08:26)
[2020-05-03] MEDS ORDERED: dexameTHASONE 4 MG/ML 1ML VIAL (J1100 PER 1MG) As Ordered ONE (08:28)
[2020-05-03] MEDS ORDERED: LIDOCAINE 2% 100MG/5ML SDV (FOR ANES.) As Ordered ONE (08:29)
[2020-05-03] MEDS ORDERED: LACRILUBE (AKWA TEARS) OPHTH OINT 3.5 GM As Ordered ONE (08:33)
[2020-05-03] MEDS ORDERED: THROMBIN SOLN 5,000 UNITS VIAL As Ordered ONE (09:15)
[2020-05-03] MEDS ORDERED: EPINEPHrine 1MG/10ML SYRINGE 1.5IN As Ordered ONE (09:16)
[2020-05-03] MEDS ORDERED: CETACAINE SPRAY 5GM As Ordered ONE (09:16)
[2020-05-03] MEDS ORDERED: LIDOCAINE 1% MDV 20ML VIAL As Ordered ONE (09:16)
[2020-05-03] MEDS ORDERED: LIDOCAINE VISCOUS 2% SOLN 15ML UDC As Ordered ONE (09:16)
[2020-05-03] MEDS ORDERED: ePHEDrine SULFATE 25 MG/5 ML(5MG/ML) SYRINGE As Ordered ONE (10:14)
[2020-05-03] MEDS ORDERED: SUGAMMADEX SODIUM 500 MG/5 ML VIAL (BRIDION) As Ordered ONE (10:50)
[2020-05-03] MEDS ORDERED: IPRATROPIUM 0.5MG/ALBUTEROL 2.5MG INH SOL UD 3ML (DUONEB)(J7620) As Ordered ONE (11:15)
[2020-05-03] MEDS ORDERED: IPRATROPIUM 0.5MG/ALBUTEROL 2.5MG INH SOL UD 3ML (DUONEB)(J7620) NEB ONE (11:15)
[2020-05-03] MEDS ORDERED: ONDANSETRON 4MG/2ML VIAL IV PRN (11:30)
[2020-05-03] MEDS ORDERED: LR 1,000 ML IV SCH (11:30)
--- NOTE | 2020-05-03 11:49 | ROOR ---
Patient Name: Radha Moon Procedure Date: 05/03/2020 9:28 AM Date of : 1955 Admit Type: Outpatient Age: 64 Note Status: Finalized Attending MD: Delia Calderon MD Procedure: Bronchoscopy Indications: Multiple pulmonary nodules, Abnormal CT scan of chest Providers: Delia Calderon MD (Doctor) Referring MD: 1. No Referring Physician 1. No Referring Physician, Admin. (Referring MD) Requesting Physician: Medicines: General Anesthesia, Cetacaine topical, Epinephrine 1 mg/10 mL topical 4 mL total, Thrombin 5000 units Complications: Significant hemorrhage requiring epinephrine and topical thrombin Procedure: Pre-Anesthesia Assessment: - Prior to the procedure, a History and Physical was performed, and patient medications and allergies were reviewed. The patient's tolerance of previous anesthesia was also reviewed. The risks and benefits of the procedure and the sedation options and risks were discussed with the patient. All questions were answered, and informed consent was obtained. Prior Anticoagulants: The patient has taken no previous anticoagulant or antiplatelet agents. ASA Grade Assessment: III - A patient with severe systemic disease. After reviewing the risks and benefits, the patient was deemed in satisfactory condition to undergo the procedure. The Bronchoscope was introduced through the mouth, via the endotracheal tube (the patient was intubated for the procedure) and advanced to the tracheobronchial tree of both lungs. The procedure was accomplished without difficulty. The patient tolerated the procedure well. Findings: The endotracheal tube is in good position. The visualized portion of the trachea is of normal caliber. The rojelio is sharp. The tracheobronchial tree was examined to at least the first subsegmental level. Bronchial anatomy was normal; bronchial mucosa showed some pitting and webbing, there were no endobronchial lesions, and scant mucoid secretions. Electromagnetic navigation bronchoscopy utilizing the Euroling system with iLogic upgrade was performed. The CT scan was used for planning purposes. A virtual bronchoscopic image was generated using the planning software and the rojelio, left main bronchus rojelio, left lower lobe basilar segment, right upper lobe, right middle lobe and right lower lobe basilar segment registration points were marked on the virtual image. The target in the lateral segment of the right middle lobe was marked. A nodule approx 1 cm in size was found and a pathway was created. After a complete airway exam, the locatable guide/extended working channel was inserted and an automatic registration was performed by advancing the scope through the rojelio, left main bronchus rojelio, left lower lobe basilar segment, right upper lobe, right middle lobe and right lower lobe basilar segment. The navigation phase was then begun to locate the target lesion(s). Positioning off-center (in relation to the lesion) was confirmed using the Olympus radial probe US catheter. The locatable guide was removed from the extended working channel. Fluoroscopy guided transbronchial brushings of a nodule were obtained in the lateral segment of the right middle lobe with a needle brush and sent for routine cytology. Transbronchial brushing technique was selected because the sampling site was not visible endoscopically. Transbronchial needle aspirations of a nodule were performed in the lateral segment of the right middle lobe using GenCut and sent for routine cytology. The procedure was guided by fluoroscopy. Transbronchial needle aspiration technique was selected because the sampling site was not visible endoscopically. Transbronchial biopsies of a nodule were performed in the lateral segment of the right middle lobe using forceps and sent for histopathology examination. The procedure was guided by fluoroscopy. Transbronchial biopsy technique was selected because the sampling site was not visible endoscopically. An endobronchial ultrasound endoscope was utilized in order to assist with fine needle aspiration in the subcarinal area. Ultrasound evaluation of right paratracheal and left hilar lymph node did not show significantly enlarged lymph nodes. Transbronchial needle aspirations of a lymph node were performed in the subcarinal area using an Olympus EBUS-TBNA 21 gauge needle and sent for routine cytology. The procedure was guided by ultrasound. Transbronchial needle aspiration technique was selected because the sampling site was not visible endoscopically. Estimated blood loss: approx 200mls, which was treated with epinephrine, cold saline and thrombin topically. Impression: - Multiple pulmonary nodules - Abnormal CT scan of chest - The airway examination was normal. - Electromagnetic navigation bronchoscopy was performed. - Transbronchial brushings were obtained of RML nodule. - A transbronchial needle aspiration was performed of RML nodule. - Transbronchial lung biopsies were performed. - Endobronchial ultrasound was performed. - A transbronchial needle aspiration was performed of subcarinal lymph node. Recommendation: - Follow up with bronchoscopist as previously scheduled. Attending Participation: I personally performed the entire procedure. Delia Calderon MD 05/03/2020 11:49:20 AM Number of Addenda: 0 Note Initiated On: 05/03/2020 9:28 AM
[2020-05-03] MEDS ORDERED: ACETAMINOPHEN 1000MG 100ML IV BTL (OFIRMEV) (J0131 PER 10MG) As Ordered ONE (11:55)
[2020-05-03] MEDS ORDERED: ACETAMINOPHEN *IV* 1,000 MG IV ONE ×2 (12:00)
[2020-05-03] MEDS: fentaNYL 100 MCG/2 ML INJECTION (J3010) IV PRN ×2 (12:07→12:45)
--- NOTE | 2020-05-03 12:54 | REP ---
REASON: Status post bronchoscopy. COMPARISON: 04/01/2020 The technique utilized in obtaining the radiograph has magnified the cardiac silhouette and accentuated the interstitial markings. Since the last examination, a large opacity has developed in the right lower lobe. There is a diffuse increase in the interstitial markings accentuated by technique. The cardiac silhouette is magnified by technique. There is no change in the osseous structures. IMPRESSION: New right lower lobe opacity, as described above, with evidence of diffuse interstitial edema accentuated by technique. Right lower lobe pneumonia is suspected, however, asymmetric pulmonary edema cannot be ruled out. Electronically Signed by Linwood Peña DO 05/03/2020 01:29 P
[2020-05-03 15:09] VITALS: BP 102/63
== END 2020-05-03 15:16 | disposition home or self-care (01) ==
LOC: M SDC 07:26
PROVIDERS: ATTEND Internal Medicine Pulmonary Disease
DX: R91.8 Other nonspecific abnormal finding of lung field (principal); J45.909 Unspecified asthma, uncomplicated; Z85.038 Personal history of other malignant neoplasm of large intestine; Z88.5 Allergy status to narcotic agent; Z88.8 Allergy status to other drugs, medicaments and biological substances
CPT/HCPCS: 31623; 31628; 31629; 31652; 71045; 76000; 88104; 88173; 88305; J0131; J1100; J2250; J2405; J3010

== ENCOUNTER → 2020-06-12 | Outpatient (REF) | payer BC ==
[~2020-06-12] MED LIST changes: +ALBU8.5H INH; -LR 1,000 ML IV ONE; +NAPR-885 PO; +TRAZ-257 PO; +UNIS25TA3 PO; +ZOLP10TA2
[2020-06-12 18:55] LABS: BLOOD UREA NITROGEN 10 MG/DL (7-18); CREATININE FOR GFR 0.82 MG/DL (0.55-1.30); GLOMERULAR FILTRATION RATE > 60.0 (>45)
== END ==
LOC: M LAB REF 16:42
PROVIDERS: ATTEND Thoracic Surgery (Cardiothoracic Vascular Surgery)
DX: Z01.812 Encounter for preprocedural laboratory examination (principal); R91.8 Other nonspecific abnormal finding of lung field

== ENCOUNTER → 2020-06-16 | Outpatient (CLI) | payer BC ==
[~2020-06-16] MED LIST changes: +ISOVUE-370 76% 100ML VIAL As Ordered ONE
--- NOTE | 2020-06-17 08:24 | REP ---
REASON: Prior CT chest 04/01/2020 showed multiple pulmonary nodules. CONTRAST TODAY: 100 mL Isovue-370. An old chest CT of 08/12/2010 was also reviewed. There are multiple nonenlarged mediastinal and hilar lymph nodes, unchanged from the latest prior. The older CT of the chest was a noncontrast-enhanced examination, and I cannot compare exactly the nodules seen today to those suspected on the prior exam, particularly in the pulmonary marilyn. There are no pleural or pericardial effusions. The imaged abdomen and imaged osseous structures are unchanged from 04/01/2020. Evaluation of the lung whitmore again shows numerable scattered nodules and asymmetric densities. These are too numerous to count or individually assess. There are emphysematous changes throughout the lung whitmore, status quo. IMPRESSION: No significant change compared to 04/01/2020 when the technical differences between the examinations are taken into consideration. Once again, there are numerable scattered nodules and asymmetric densities. I cannot say for certain whether some nodules may have increased in size or even decreased in size due to the multitude and complexity of the findings and the fact that the examinations are technically different. Chronic fibrotic changes with or without underlying additional pathology cannot be stated with certainty by this exam. Followup is recommended. Consider CT/PET. There is no revised Fleischner Society criteria for the recommendation on followup of such rather diffuse findings. Electronically Signed by Linwood Peña DO 06/17/2020 09:12 A
== END ==
LOC: M RAD 15:53
PROVIDERS: ATTEND Thoracic Surgery (Cardiothoracic Vascular Surgery)
DX: R91.8 Other nonspecific abnormal finding of lung field (principal)
CPT/HCPCS: 71260; 88307; 88329; Q9967

== ENCOUNTER → 2020-06-27 | Outpatient (CLI) | payer BC ==
[~2020-06-27] MED LIST changes: -ISOVUE-370 76% 100ML VIAL As Ordered ONE; +ONDANSETRON 4MG/2ML VIAL As Ordered ONE
--- NOTE | 2020-08-18 09:23 | ECGEPIP ---
[facility] Test Date: 2020-06-27 Pat Name: DIPAK ROSS Department: Room: - Gender: Female Assistant Head Cashier: : 1955 Requested By: Alban Queen Order Number: [id number] Reading MD: Benson Goodrich Measurements Intervals [place] Rate: 68 P: 55 [place]: 128 QRS: 71 QRSD: 86 T: 72 QT: 376 QTc: 403 Interpretive Statements SINUS RHYTHM NORMAL ECG SEE SCANNED DOWNTIME REPORT
--- NOTE | 2020-08-18 14:20 | REP ---
PORTABLE CHEST X-RAY: SITTING AP VIEW HISTORY: Unavailable COMPARISON: Chest x-ray from 06/27/20 FINDINGS: The patient is status post right thoracotomy and partial pneumonectomy. Suture lines are visible at the right apex and right mid-lung zone. There is platelike atelectasis at the right base. There are two right-sided chest tubes. There is a very small right apical pneumothorax collection. There is a small amount of extrathoracic soft tissue gas along the soft tissues in the right neck and along the chest tube insertion site in the extrathoracic soft tissues of the right chest. An epidural catheter is seen along with EKG monitoring electrodes. There is platelike atelectasis in the left base and left mid-lung zone. MTDD
[2020-10-12 15:47] LABS: ABG BASE EXCESS -2.5 (-2.0-2.0); ABG HCO3 20.8 MEQ/L (22.0-26.0); ABG O2 SATURATION 97.7 % (95.0-99.0); ABG PARTIAL PRESSURE CO2 32.3 mmHg (35.0-45.0); ABG PARTIAL PRESSURE O2 90.9 mmHg (75.0-100.0); ABG STANDARD HCO3 22.4 MEQ/L (22.0-26.0); ABG TOTAL CO2 21.8 MEQ/L (23.0-31.0); ABG pH (ARTERIAL) 7.426 UNITS (7.350-7.450)
== END ==
LOC: M RAD 12:00
PROVIDERS: ATTEND Thoracic Surgery (Cardiothoracic Vascular Surgery)
DX: R91.8 Other nonspecific abnormal finding of lung field (principal); Z90.2 Acquired absence of lung [part of]

== ENCOUNTER 2020-06-30 07:45 | Inpatient (IN) | payer BC ==
[~2020-06-30 07:45] MED LIST changes: -ALBU8.5H INH; +BUPIVACAINE HCL 0.5% 10ML VIAL As Ordered ONE; +BUPIVACAINE LIPOSOME/PF 1.3% 20ML VIAL (13.3MG/ML)(EXPAREL)(C9290 PER1MG) As Ordered ONE; +CETACAINE SPRAY 5GM As Ordered ONE; +LIDOCAINE 2% 100MG/5ML SDV (FOR ANES.) As Ordered ONE; +MIDAZOLAM INJ 2MG/2ML VIAL (J2250 PER 1MG) As Ordered ONE; +MUPIROCIN 2% OINT 22 GM TUBE As Ordered ONE; +MUPIROCIN 2% OINT 22 GM TUBE ONE; -NAPR-885 PO; -ONDANSETRON 4MG/2ML VIAL As Ordered ONE; +ROCURONIUM BROMIDE 50 MG/5 ML VIAL As Ordered ONE; -TRAZ-257 PO; -UNIS25TA3 PO; -ZOLP10TA2; +ceFAZolin 2 GM/D5W 50 ML IV BAG (J0690 PER 500MG) As Ordered ONE; +ceFAZolin 2 GM/D5W 50 ML IV BAG (J0690 PER 500MG) ONE; +fentaNYL 100 MCG/2 ML INJECTION (J3010) As Ordered ONE; +fentaNYL 250 MCG/5 ML INJECTION (J3010) As Ordered ONE; +propofoL 200 MG/20 ML VIAL As Ordered ONE
[2020-06-30] MEDS ORDERED: MIDAZOLAM INJ 2MG/2ML VIAL (J2250 PER 1MG) As Ordered ONE (07:49)
[2020-06-30] MEDS ORDERED: ONDANSETRON 4MG/2ML VIAL As Ordered ONE (09:58)
[2020-06-30] MEDS ORDERED: KETOROLAC 60MG 2ML VIAL As Ordered ONE (09:58)
[2020-06-30] MEDS ORDERED: ACETAMINOPHEN 1000MG 100ML IV BTL (OFIRMEV) (J0131 PER 10MG) As Ordered ONE (09:58)
[2020-06-30] MEDS ORDERED: dexameTHASONE 4 MG/ML 1ML VIAL (J1100 PER 1MG) As Ordered ONE (09:59)
[2020-06-30] MEDS ORDERED: BUPIVACAINE HCL 0.25% 30ML VIAL As Ordered ONE (10:08)
[2020-06-30] MEDS ORDERED: BUPIVACAINE HCL 0.5% 30 ML VIAL As Ordered ONE (10:08)
[2020-06-30] MEDS ORDERED: PHENYLephrine HCL 500 MCG/5 ML (100MCG/ML) SYRINGE (J2370) As Ordered ONE (10:13)
[2020-06-30] MEDS ORDERED: SUGAMMADEX SODIUM 500 MG/5 ML VIAL (BRIDION) As Ordered ONE (10:14)
[2020-06-30] MEDS ORDERED: ROCURONIUM BROMIDE 50 MG/5 ML VIAL As Ordered ONE (10:17)
[2020-06-30] MEDS ORDERED: FENTANYL 2MCG/ML BUPIVACAINE 0.0625% NACL 250ML IV BAG As Ordered ONE (11:04)
[2020-06-30] MEDS ORDERED: FENTANYL 2MCG/ML BUPIVACAINE 0.0625% NACL 250ML IV BAG ONE (11:04)
[2020-06-30] MEDS ORDERED: fentaNYL 100 MCG/2 ML INJECTION (J3010) ONE (12:06)
[2020-06-30] MEDS ORDERED: fentaNYL 100 MCG/2 ML INJECTION (J3010) As Ordered ONE (12:06)
[2020-06-30] MEDS ORDERED: NORCO, ANEXSIA 5/325MG TABLET (HYDROcodone/ACETAMINOPHEN) ONE ×2 (12:06→14:00)
[2020-06-30] MEDS ORDERED: oxyCODONE 5MG TAB As Ordered ONE (12:23)
[2020-06-30] MEDS ORDERED: NORCO, ANEXSIA 5/325MG TABLET (HYDROcodone/ACETAMINOPHEN) As Ordered ONE ×2 (12:51→14:00)
[2020-06-30] MEDS ORDERED: SODIUM BICARBONATE 8.4% INJ 50 ML SYRINGE ONE (13:03)
[2020-06-30] MEDS ORDERED: ceFAZolin 1GM VIAL (J0690 PER 500MG) ONE (15:36)
[2020-06-30] MEDS ORDERED: KCL 20MEQ IN D5/0.9%NACL 1000 ML ONE (15:36)
[2020-06-30] MEDS ORDERED: KCL 20MEQ IN D5/0.9%NACL 1000 ML As Ordered ONE (15:36)
[2020-06-30] MEDS ORDERED: KETOROLAC 30 MG/ML 1ML VIAL ONE (15:36)
[2020-06-30] MEDS ORDERED: KETOROLAC 30 MG/ML 1ML VIAL As Ordered ONE (16:37)
[2020-06-30] MEDS ORDERED: ceFAZolin 1GM VIAL (J0690 PER 500MG) As Ordered ONE (16:37)
[2020-06-30] MEDS ORDERED: HEPARIN SOD (PORCINE) 5000UNITS/ML 1ML VIAL/SYRINGE ONE (20:47)
[2020-06-30] MEDS ORDERED: diphenhydrAMINE 50MG/ML VIAL (J1200) ONE (20:47)
[2020-06-30] MEDS ORDERED: HEPARIN SOD (PORCINE) 5000UNITS/ML 1ML VIAL/SYRINGE As Ordered ONE (20:47)
[2020-06-30] MEDS ORDERED: diphenhydrAMINE 50MG/ML VIAL (J1200) As Ordered ONE (20:48)
[2020-07-01] MEDS ORDERED: KETOROLAC 30 MG/ML 1ML VIAL As Ordered ONE ×4 (00:13→21:05)
[2020-07-01] MEDS ORDERED: ACETAMINOPHEN 325 MG TAB As Ordered ONE (00:14)
[2020-07-01] MEDS ORDERED: ceFAZolin 1GM VIAL (J0690 PER 500MG) As Ordered ONE ×2 (00:14→15:32)
[2020-07-01] MEDS ORDERED: ONDANSETRON 4MG/2ML VIAL As Ordered ONE (20:05)
[2020-07-01] MEDS ORDERED: HEPARIN SOD (PORCINE) 5000UNITS/ML 1ML VIAL/SYRINGE As Ordered ONE (21:05)
[2020-07-01] MEDS ORDERED: ALPRAZolam 0.25 MG TAB As Ordered ONE (21:10)
[2020-07-02] MEDS ORDERED: ceFAZolin 1GM VIAL (J0690 PER 500MG) As Ordered ONE ×4 (00:34→23:47)
[2020-07-02] MEDS ORDERED: FENTANYL 2MCG/ML BUPIVACAINE 0.0625% NACL 250ML IV BAG As Ordered ONE ×2 (02:50→20:22)
[2020-07-02] MEDS ORDERED: HEPARIN SOD (PORCINE) 5000UNITS/ML 1ML VIAL/SYRINGE As Ordered ONE ×2 (08:11→19:36)
[2020-07-02] MEDS ORDERED: PANTOPRAZOLE 40MG TAB (PROTONIX) As Ordered ONE (08:12)
[2020-07-02] MEDS ORDERED: LIDOCAINE 5% (LIDODERM) PATCH As Ordered ONE (08:40)
[2020-07-02] MEDS ORDERED: ONDANSETRON 4MG/2ML VIAL As Ordered ONE ×2 (09:25→14:25)
[2020-07-02] MEDS ORDERED: KETOROLAC 30 MG/ML 1ML VIAL As Ordered ONE ×3 (10:12→19:36)
[2020-07-02] MEDS ORDERED: FUROSEMIDE 20MG/2ML VIAL (J1940) As Ordered ONE (10:52)
[2020-07-02] MEDS ORDERED: ALPRAZolam 0.5 MG TAB As Ordered ONE (14:14)
[2020-07-02] MEDS ORDERED: diphenhydrAMINE 50MG/ML VIAL (J1200) As Ordered ONE (19:35)
[2020-07-03] MEDS ORDERED: ONDANSETRON 4MG/2ML VIAL As Ordered ONE ×2 (02:06→16:21)
[2020-07-03] MEDS ORDERED: KETOROLAC 30 MG/ML 1ML VIAL As Ordered ONE ×4 (03:59→21:06)
[2020-07-03] MEDS ORDERED: ALPRAZolam 0.5 MG TAB As Ordered ONE (04:02)
[2020-07-03] MEDS ORDERED: LIDOCAINE 2% MDV 20ML VIAL As Ordered ONE (07:41)
[2020-07-03] MEDS ORDERED: PANTOPRAZOLE 40MG TAB (PROTONIX) As Ordered ONE (08:59)
[2020-07-03] MEDS ORDERED: HEPARIN SOD (PORCINE) 5000UNITS/ML 1ML VIAL/SYRINGE As Ordered ONE ×2 (08:59→21:06)
[2020-07-03] MEDS ORDERED: LIDOCAINE 5% (LIDODERM) PATCH As Ordered ONE (13:45)
[2020-07-03] MEDS ORDERED: FENTANYL 2MCG/ML BUPIVACAINE 0.0625% NACL 250ML IV BAG As Ordered ONE (16:57)
[2020-07-03] MEDS ORDERED: NORCO, ANEXSIA 5/325MG TABLET (HYDROcodone/ACETAMINOPHEN) As Ordered ONE (21:16)
[2020-07-03] MEDS ORDERED: ONDANSETRON 4MG/2ML VIAL ONE (21:22)
[2020-07-04] MEDS ORDERED: METOCLOPRAMIDE INJ 10MG/2ML VIAL (J2765 PER 1) As Ordered ONE (04:11)
[2020-07-04] MEDS ORDERED: KETOROLAC 30 MG/ML 1ML VIAL As Ordered ONE (04:12)
[2020-07-04] MEDS ORDERED: MIDAZOLAM INJ 2MG/2ML VIAL (J2250 PER 1MG) ONE (07:33)
[2020-07-04] MEDS ORDERED: fentaNYL 100 MCG/2 ML INJECTION (J3010) ONE (07:33)
[2020-07-04] MEDS ORDERED: SENNA 8.6 MG TAB (SENOKOT) As Ordered ONE (08:07)
[2020-07-04] MEDS ORDERED: MORPHINE 4 MG/ML 1ML VIAL/SYRINGE (J2270) As Ordered ONE (08:08)
[2020-07-04] MEDS ORDERED: PANTOPRAZOLE 40MG VIAL (C9113 PER 1) As Ordered ONE (08:08)
[2020-07-04] MEDS ORDERED: CHLORHEXIDINE GLUCONATE 0.12 % 15ML UDC (PERIDEX ORAL RINSE) As Ordered ONE (08:08)
[2020-07-04] MEDS ORDERED: HEPARIN SOD (PORCINE) 5000UNITS/ML 1ML VIAL/SYRINGE As Ordered ONE (09:03)
[2020-07-04] MEDS ORDERED: PANTOPRAZOLE 40MG TAB (PROTONIX) As Ordered ONE (09:03)
[2020-07-04] MEDS ORDERED: LIDOCAINE 2% W/EPINEPHRINE 20ML VIAL **PRES FREE As Ordered ONE (09:19)
[2020-08-05 07:33] LABS: HEMATOCRIT 44.2 % (36.0-47.0); HEMOGLOBIN 14.5 g/dl (12.0-15.5); MEAN CORPUSCULAR HEMOGLOBIN 31.3 pg (27.0-33.0); MEAN CORPUSCULAR HGB CONC 32.8 g/dl (32.0-36.5); MEAN CORPUSCULAR VOLUME 95.5 fl (80.0-96.0); PLATELET COUNT, AUTOMATED 233 10^3/uL (150-450); RED BLOOD COUNT 4.63 10^6/uL (4.00-5.40); WHITE BLOOD COUNT 9.2 10^3/uL (4.0-10.0)
[2020-08-05 22:23] LABS: APPEARANCE, URINE CLEAR (CLEAR); BACTERIA, URINE AUTO NEGATIVE (NEGATIVE); BILIRUBIN, URINE AUTO NEGATIVE (NEGATIVE); BLOOD, URINE BLOOD 2+ (NEGATIVE); COLOR, URINE YELLOW (YELLOW); GLUCOSE, URINE (UA) AUTO NEGATIVE (NEGATIVE); KETONE, URINE AUTO NEGATIVE (NEGATIVE); LEUKOCYTE ESTERASE, URINE AUTO NEGATIVE (NEGATIVE); NITRITE, URINE AUTO NEGATIVE (NEGATIVE); PROTEIN, URINE AUTO NEGATIVE (NEGATIVE); RBC, URINE AUTO 4 /HPF (0-3); SPECIFIC GRAVITY URINE AUTO 1.015 (1.002-1.035); SQUAMOUS EPITHELIAL CELL UR AU 0 /HPF (0-6); UROBILINOGEN, URINE AUTO 0.2 mg/dL (0.0-2.0); WBC, URINE AUTO 0 /HPF (0-3)
[2020-08-07 20:45] LABS: ALT/SGPT 26 U/L (12-78); BILIRUBIN,TOTAL 0.5 MG/DL (0.2-1.0); BLOOD UREA NITROGEN 10 MG/DL (7-18); CALCIUM LEVEL 9.2 MG/DL (8.8-10.2); CARBON DIOXIDE LEVEL 28 MEQ/L (21-32); CHLORIDE LEVEL 106 MEQ/L (98-107); CREATININE FOR GFR 0.87 MG/DL (0.55-1.30); GLOMERULAR FILTRATION RATE > 60.0 (>45); GLUCOSE, FASTING 94 MG/DL (70-100); POTASSIUM SERUM 4.5 MEQ/L (3.5-5.1); SODIUM LEVEL 141 MEQ/L (136-145); TOTAL PROTEIN 7.6 GM/DL (6.4-8.2)
[2020-08-07 22:54] LABS: HEMATOCRIT 45.9 % (36.0-47.0); HEMOGLOBIN 15.6 g/dl (12.0-15.5); INR 0.94; MEAN CORPUSCULAR HEMOGLOBIN 31.6 pg (27.0-33.0); MEAN CORPUSCULAR VOLUME 92.9 fl (80.0-96.0); PARTIAL THROMBOPLASTIN TIME 36.2 SECONDS (25.0-38.4); PLATELET COUNT, AUTOMATED 279 10^3/uL (150-450); PROTHROMBIN TIME 12.8 SECONDS (11.8-14.0); RED BLOOD COUNT 4.94 10^6/uL (4.00-5.40); WHITE BLOOD COUNT 6.8 10^3/uL (4.0-10.0)
[2020-08-21 10:58] LABS: BASO % 0.1 % (0.0-1.0); EOS % 0.1 % (0.0-3.0); HEMATOCRIT 33.9 % (36.0-47.0); HEMOGLOBIN 11.2 g/dl (12.0-15.5); LYMPH % 22.8 % (24.0-44.0); MEAN CORPUSCULAR HEMOGLOBIN 31.5 pg (27.0-33.0); MEAN CORPUSCULAR VOLUME 95.5 fl (80.0-96.0); MONO # 0.6 10^3/uL (0.0-0.8); NEUTROPHILS # 6.1 10^3/uL (1.5-8.5); NEUTROPHILS % 69.9 % (36.0-66.0); PLATELET COUNT, AUTOMATED 194 10^3/uL (150-450); RED BLOOD COUNT 3.55 10^6/uL (4.00-5.40); WHITE BLOOD COUNT 8.8 10^3/uL (4.0-10.0)
[2020-08-22 06:52] LABS: BASO % 0.3 % (0.0-1.0); EOS % 0.7 % (0.0-3.0); HEMATOCRIT 34.4 % (36.0-47.0); HEMOGLOBIN 11.1 g/dl (12.0-15.5); LYMPH # 1.9 10^3/uL (1.5-5.0); LYMPH % 33.4 % (24.0-44.0); MEAN CORPUSCULAR HEMOGLOBIN 31.6 pg (27.0-33.0); MEAN CORPUSCULAR HGB CONC 32.3 g/dl (32.0-36.5); MONO # 0.5 10^3/uL (0.0-0.8); MONO % 8.6 % (0.0-5.0); NEUTROPHILS # 3.3 10^3/uL (1.5-8.5); NEUTROPHILS % 56.8 % (36.0-66.0); PLATELET COUNT, AUTOMATED 199 10^3/uL (150-450); RED BLOOD COUNT 3.51 10^6/uL (4.00-5.40); WHITE BLOOD COUNT 5.8 10^3/uL (4.0-10.0)
[2020-08-22 16:52] LABS: BASO % 0.2 % (0.0-1.0); EOS % 0.5 % (0.0-3.0); HEMATOCRIT 35.8 % (36.0-47.0); HEMOGLOBIN 11.9 g/dl (12.0-15.5); LYMPH # 1.1 10^3/uL (1.5-5.0); LYMPH % 17.5 % (24.0-44.0); MEAN CORPUSCULAR HEMOGLOBIN 31.7 pg (27.0-33.0); MEAN CORPUSCULAR HGB CONC 33.2 g/dl (32.0-36.5); MEAN CORPUSCULAR VOLUME 95.5 fl (80.0-96.0); MONO # 0.5 10^3/uL (0.0-0.8); MONO % 7.4 % (0.0-5.0); NEUTROPHILS # 4.6 10^3/uL (1.5-8.5); NEUTROPHILS % 74.1 % (36.0-66.0); PLATELET COUNT, AUTOMATED 189 10^3/uL (150-450); RED BLOOD COUNT 3.75 10^6/uL (4.00-5.40); WHITE BLOOD COUNT 6.2 10^3/uL (4.0-10.0)
--- NOTE | 2020-08-24 09:12 | REP ---
CHEST TWO VIEWS COMPARISON: 07/04/2020 TECHNIQUE: Two views of the chest are performed. FINDINGS: Parenchymal opacities on the right are stable with focal peripheral ill-defined parenchymal opacity in the right lung laterally at the level of the hilum. There are surgical sutures at that location, also in the right apex. There is a small amount of right pleural fluid unchanged. There is improvement of previously noted left basilar pleural and parenchymal opacity with mild residual atelectasis or infiltrate in the left base. The heart and mediastinum are unchanged. There are mild degenerative changes of the spine. MTDD
--- NOTE | 2020-08-31 10:08 | RO ---
Date of Operation: 06/30/2020 Pre-op diagnosis: Multiple pulmonary nodules. Post-op diagnosis: Inflammatory nodules by frozen section. Procedure: Multiple wedge resections with video-assisted thoracic techniques, five-level rib block and bronchoscopy. Surgeon: Alban Cohen M.D. Description of Operation: Under satisfactory general anesthesia and single lumen tube endotracheal intubation, the bronchoscope was placed into the tracheobronchial tree. She had a normal branching anatomy and each segment and subsegment were thoroughly inspected and there were no endotracheal lesions. There was a considerable amount of mucous which was removed with suction aspiration. The patient was then turned into the left lateral decubitus position and sterilely prepped and draped in the usual fashion. An initial thoracoscopy incision was made and a tunnel was created by use of a 5 mm port. For the most part, the lung came away from the chest wall with a couple of adhesions which were located anteriorly and which did not need to be taken down. I thoroughly inspected the lung and could only find some white-grayish plaques on the inferior surface of the middle lobe. These were wedged and sent for frozen section. In the meantime, CT scan had shown us that there were two larger nodules, one in the upper lobe and one in the lower lobe. I could not find the lower lobe nodule but I could the upper lobe nodule which I could not see but I could palpate gently with the endoscopic forceps. This was then seized and wedge resection completed by use of multiple firings of the DAWN stapler. The frozen section was returned on the middle lobe which did not show any lesions. The upper lobe, however, showed inflammatory nodule with multinucleated giant cells and histiocytes. I personally reviewed the histology with the pathologist. Having satisfied myself that this was inflammatory as I has preoperatively it was, two chest tubes were placed, a #24 straight and curved through the previous port incisions and the third port incision was closed with running 0 Vicryl suture for the extrathoracic muscles, subcutaneous suture of 3-0 Vicryl and the skin was closed with running 4-0 Monocryl subcuticular suture. Five- level rib block was then taken with a Exparel-Marcaine mixture. Chest tube sites and third port incision were also infiltrated with Exparel. The patient tolerated the procedure well and left the operating room in satisfactory condition for the recovery room. CECILLE
--- NOTE | 2020-08-31 10:13 | DSES ---
DATE OF ADMISSION: 06/30/2020 DATE OF DISCHARGE: 07/04/2020 DISCHARGE DIAGNOSIS: 1. Multiple lung lesions, inflammatory, final pathology pending 2. Chronic obstructive pulmonary disease (COPD) 3. Emphysema. 4. Insomnia 5. Rectosigmoid carcinoma, status post resection in 2017. HOSPITAL COURSE: The patient is a 64-year-old white female with history of rectosigmoid adenocarcinoma, who was resected in 2017 with a history of emphysema and spontaneous pneumothorax. She was found in oncologic follow up to have multiple lung lesions. There was concern by oncology that this could be a metastatic colon carcinoma. Her CT scan not only showed the multiple lung lesions, but did not show any lesions in the liver. She denied fever, chills or sweats. There has been no weight loss, although she has had some decrease in her appetite. She has a significant heavy smoking history; one pack per day for 48 years. She was therefore taken to the operating room where she underwent a thoracoscopic and VATS wedge resection of the right upper lobe and the right middle lobe. Wedge resections returned as inflammatory disease. The final pathology is still pending and cannot be accessed secondary to the computer shunt down. We are awaiting the final pathology report. She had a benign postoperative course. She did complain of increased pain, which was treated with the epidural infusion. Today, she is being discharged on her home medications, which include Ventolin one to two puffs q.i.d. as needed for shortness of breath, Unasyn three tabs q.h.s. as needed for sleep and Aleve 220 mg t.i.d. as needed for pain. She will continue that [id number]. Her discharge BUN and creatinine are 11 and 0.61, calcium 8.7 and normal electrolytes and her discharge white count is 4.9, hemoglobin and hematocrit 11.3 and 34.2. Her chest x-ray shows her lung whitmore expanded in the chest wall. I will see her back in two weeks with a chest x-ray and postoperative follow up. CECILLE
[2020-09-10 14:55] LABS: BASO % 0.4 % (0.0-1.0); EOS # 0.1 10^3/uL (0.0-0.5); HEMATOCRIT 34.2 % (36.0-47.0); HEMOGLOBIN 11.3 g/dl (12.0-15.5); LYMPH # 1.9 10^3/uL (1.5-5.0); LYMPH % 37.9 % (24.0-44.0); MEAN CORPUSCULAR HEMOGLOBIN 31.7 pg (27.0-33.0); MEAN CORPUSCULAR VOLUME 96.1 fl (80.0-96.0); MONO # 0.4 10^3/uL (0.0-0.8); MONO % 7.1 % (0.0-5.0); NEUTROPHILS # 2.6 10^3/uL (1.5-8.5); NEUTROPHILS % 52.4 % (36.0-66.0); PLATELET COUNT, AUTOMATED 213 10^3/uL (150-450); RED BLOOD COUNT 3.56 10^6/uL (4.00-5.40); WHITE BLOOD COUNT 4.9 10^3/uL (4.0-10.0)
[2020-09-17 20:18] LABS: BLOOD UREA NITROGEN 11 MG/DL (7-18); CALCIUM LEVEL 8.7 MG/DL (8.8-10.2); CARBON DIOXIDE LEVEL 34 MEQ/L (21-32); CHLORIDE LEVEL 104 MEQ/L (98-107); CREATININE FOR GFR 0.61 MG/DL (0.55-1.30); GLOMERULAR FILTRATION RATE > 60.0 (>45); GLUCOSE, FASTING 102 MG/DL (70-100); POTASSIUM SERUM 3.9 MEQ/L (3.5-5.1); SODIUM LEVEL 141 MEQ/L (136-145)
[2020-09-22 14:14] LABS: ABG BASE EXCESS -2.9 (-2.0-2.0); ABG HCO3 23.7 MEQ/L (22.0-26.0); ABG MODE OF VENT R/A; ABG O2 SATURATION 94.9 % (95.0-99.0); ABG PARTIAL PRESSURE CO2 48.1 mmHg (35.0-45.0); ABG PARTIAL PRESSURE O2 76.5 mmHg (75.0-100.0); ABG TOTAL CO2 25.2 MEQ/L (23.0-31.0)
[2020-09-22 14:15] LABS: ABG BASE EXCESS -6.1 (-2.0-2.0); ABG HCO3 20.4 MEQ/L (22.0-26.0); ABG MODE OF VENT R/A; ABG O2 SATURATION 96.8 % (95.0-99.0); ABG PARTIAL PRESSURE CO2 43.9 mmHg (35.0-45.0); ABG PARTIAL PRESSURE O2 90.4 mmHg (75.0-100.0); ABG STANDARD HCO3 19.5 MEQ/L (22.0-26.0); ABG TOTAL CO2 21.7 MEQ/L (23.0-31.0); ABG pH (ARTERIAL) 7.285 UNITS (7.350-7.450)
[2020-09-22 14:17] LABS: ABG MODE OF VENT R/A; ABG PARTIAL PRESSURE CO2 63.3 mmHg (35.0-45.0); ABG PARTIAL PRESSURE O2 281.2 mmHg (75.0-100.0); ABG pH (ARTERIAL) 7.215 UNITS (7.350-7.450)
[2020-09-22 14:18] LABS: ABG BASE EXCESS -4.1 (-2.0-2.0); ABG O2 SATURATION 99.8 % (95.0-99.0); ABG STANDARD HCO3 21.2 MEQ/L (22.0-26.0)
[2020-09-22 14:19] LABS: BLOOD UREA NITROGEN 12 MG/DL (7-18); CALCIUM LEVEL 8.7 MG/DL (8.8-10.2); CARBON DIOXIDE LEVEL 26 MEQ/L (21-32); CHLORIDE LEVEL 110 MEQ/L (98-107); CREATININE FOR GFR 0.93 MG/DL (0.55-1.30); GLOMERULAR FILTRATION RATE > 60.0 (>45); GLUCOSE, FASTING 132 MG/DL (70-100); POTASSIUM SERUM 4.6 MEQ/L (3.5-5.1); SODIUM LEVEL 141 MEQ/L (136-145)
[2020-09-22 14:21] LABS: BLOOD UREA NITROGEN 12 MG/DL (7-18); CARBON DIOXIDE LEVEL 28 MEQ/L (21-32); CHLORIDE LEVEL 109 MEQ/L (98-107); CREATININE FOR GFR 0.89 MG/DL (0.55-1.30); GLOMERULAR FILTRATION RATE > 60.0 (>45); GLUCOSE, FASTING 111 MG/DL (70-100); SODIUM LEVEL 142 MEQ/L (136-145)
[2020-09-24 12:15] LABS: BLOOD UREA NITROGEN 11 MG/DL (7-18); CALCIUM LEVEL 7.7 MG/DL (8.8-10.2); CARBON DIOXIDE LEVEL 29 MEQ/L (21-32); CHLORIDE LEVEL 108 MEQ/L (98-107); CREATININE FOR GFR 0.75 MG/DL (0.55-1.30); GLOMERULAR FILTRATION RATE > 60.0 (>45); GLUCOSE, FASTING 124 MG/DL (70-100); POTASSIUM SERUM 4.2 MEQ/L (3.5-5.1); SODIUM LEVEL 140 MEQ/L (136-145)
[2020-09-24 12:18] LABS: ABG BASE EXCESS 1.1 (-2.0-2.0); ABG HCO3 27.1 MEQ/L (22.0-26.0); ABG MODE OF VENT R/A; ABG O2 SATURATION 97.2 % (95.0-99.0); ABG PARTIAL PRESSURE CO2 48.9 mmHg (35.0-45.0); ABG STANDARD HCO3 25.4 MEQ/L (22.0-26.0); ABG TOTAL CO2 28.6 MEQ/L (23.0-31.0); ABG pH (ARTERIAL) 7.361 UNITS (7.350-7.450)
[2020-09-26 09:32] LABS: BLOOD UREA NITROGEN 9 MG/DL (7-18); CALCIUM LEVEL 8.5 MG/DL (8.8-10.2); CARBON DIOXIDE LEVEL 31 MEQ/L (21-32); CHLORIDE LEVEL 104 MEQ/L (98-107); CREATININE FOR GFR 0.68 MG/DL (0.55-1.30); GLOMERULAR FILTRATION RATE > 60.0 (>45); GLUCOSE, FASTING 122 MG/DL (70-100); POTASSIUM SERUM 3.9 MEQ/L (3.5-5.1); SODIUM LEVEL 140 MEQ/L (136-145)
[2020-09-28 11:52] LABS: BLOOD UREA NITROGEN 8 MG/DL (7-18); CALCIUM LEVEL 8.3 MG/DL (8.8-10.2); CARBON DIOXIDE LEVEL 30 MEQ/L (21-32); CHLORIDE LEVEL 109 MEQ/L (98-107); CREATININE FOR GFR 0.67 MG/DL (0.55-1.30); GLOMERULAR FILTRATION RATE > 60.0 (>45); GLUCOSE, FASTING 100 MG/DL (70-100); POTASSIUM SERUM 4.2 MEQ/L (3.5-5.1); SODIUM LEVEL 141 MEQ/L (136-145)
[2020-09-28 22:34] LABS: BASO % 0.3 % (0.0-1.0); EOS # 0.1 10^3/uL (0.0-0.5); EOS % 0.7 % (0.0-3.0); HEMATOCRIT 35.9 % (36.0-47.0); HEMOGLOBIN 11.7 g/dl (12.0-15.5); LYMPH # 1.9 10^3/uL (1.5-5.0); LYMPH % 28.9 % (24.0-44.0); MEAN CORPUSCULAR HEMOGLOBIN 31.5 pg (27.0-33.0); MEAN CORPUSCULAR HGB CONC 32.6 g/dl (32.0-36.5); MEAN CORPUSCULAR VOLUME 96.8 fl (80.0-96.0); MONO # 0.6 10^3/uL (0.0-0.8); MONO % 8.5 % (0.0-5.0); NEUTROPHILS # 4.1 10^3/uL (1.5-8.5); NEUTROPHILS % 61.3 % (36.0-66.0); PLATELET COUNT, AUTOMATED 195 10^3/uL (150-450); RED BLOOD COUNT 3.71 10^6/uL (4.00-5.40); WHITE BLOOD COUNT 6.7 10^3/uL (4.0-10.0)
== END 2020-07-04 09:45 | disposition home or self-care (01) | DRG 121 ==
LOC: M ICU 07:45
PROVIDERS: ADMIT Thoracic Surgery (Cardiothoracic Vascular Surgery); ATTEND Thoracic Surgery (Cardiothoracic Vascular Surgery)
PROC: 0BBD4ZX Excision of Right Middle Lung Lobe, Percutaneous Endoscopic Approach, Diagnostic (ICD-10-PCS; principal; 2020-06-30)
PROC: 0BBC4ZX Excision of Right Upper Lung Lobe, Percutaneous Endoscopic Approach, Diagnostic (ICD-10-PCS; 2020-06-30)
PROC: 0BBF4ZX Excision of Right Lower Lung Lobe, Percutaneous Endoscopic Approach, Diagnostic (ICD-10-PCS; 2020-06-30)
DX: J43.1 Panlobular emphysema (principal); F17.200 Nicotine dependence, unspecified, uncomplicated; G47.00 Insomnia, unspecified; Z85.038 Personal history of other malignant neoplasm of large intestine

== ENCOUNTER → 2020-08-17 | Outpatient (CLI) | payer BC ==
[~2020-08-17] MED LIST changes: +ALBU8.5H INH; -BUPIVACAINE HCL 0.5% 10ML VIAL As Ordered ONE; -BUPIVACAINE LIPOSOME/PF 1.3% 20ML VIAL (13.3MG/ML)(EXPAREL)(C9290 PER1MG) As Ordered ONE; -CETACAINE SPRAY 5GM As Ordered ONE; -LIDOCAINE 2% 100MG/5ML SDV (FOR ANES.) As Ordered ONE; -MIDAZOLAM INJ 2MG/2ML VIAL (J2250 PER 1MG) As Ordered ONE; -MUPIROCIN 2% OINT 22 GM TUBE As Ordered ONE; -MUPIROCIN 2% OINT 22 GM TUBE ONE; +NAPR-885 PO; -ROCURONIUM BROMIDE 50 MG/5 ML VIAL As Ordered ONE; +TRAZ-257 PO; +UNIS25TA3 PO; +ZOLP10TA2; -ceFAZolin 2 GM/D5W 50 ML IV BAG (J0690 PER 500MG) As Ordered ONE; -ceFAZolin 2 GM/D5W 50 ML IV BAG (J0690 PER 500MG) ONE; -fentaNYL 100 MCG/2 ML INJECTION (J3010) As Ordered ONE; -fentaNYL 250 MCG/5 ML INJECTION (J3010) As Ordered ONE; -propofoL 200 MG/20 ML VIAL As Ordered ONE
--- NOTE | 2020-08-23 17:31 | REP ---
CHEST X-RAY: 08/17/20 CLINICAL: Follow-up abnormal lung findings. COMPARISON: 07/12/20, 07/02/20. FINDINGS: The mediastinum and cardiac silhouette are stable. Stable blunting to the right diaphragmatic surface and costophrenic angle as well as stable appearance to the scarring along the periphery of the right mid lung zone again noted. No obvious new acute consolidation, new effusion or pneumothorax appreciated. Skeletal structures are intact. IMPRESSION: Chronic relatively stable appearing findings as described above. A small pleural effusion cannot definitively be excluded. If the patient remains symptomatic, chest CT should be considered for further investigation. YUAND
== END ==
LOC: M RAD 09:26
PROVIDERS: ATTEND Thoracic Surgery (Cardiothoracic Vascular Surgery)
DX: R91.8 Other nonspecific abnormal finding of lung field (principal); J43.1 Panlobular emphysema

== ENCOUNTER 2020-09-25 10:32 | Inpatient (IN) | payer BC ==
[~2020-09-25] VITALS: Ht 160 cm; Wt 67.6 kg
[~2020-09-25 10:32] MED LIST changes: -ALBU8.5H INH; -NAPR-885 PO; -TRAZ-257 PO; -UNIS25TA3 PO; -ZOLP10TA2
[2020-09-25] MEDS ORDERED: ALBU8.5H INH (10:41)
[2020-09-25] MEDS ORDERED: NAPR-885 PO (10:41)
[2020-09-25] MEDS ORDERED: ZOLP10TA2 (10:41)
[2020-09-25] MEDS ORDERED: TRAZ-257 PO (10:41)
[2020-09-25 11:21] LABS: BASO % 0.3 % (0.0-1.0); EOS % 0.1 % (0.0-3.0); HEMATOCRIT 47.1 % (36.0-47.0); HEMOGLOBIN 15.7 g/dl (12.0-15.5); LYMPH # 1.6 10^3/uL (1.5-5.0); LYMPH % 10.6 % (24.0-44.0); MEAN CORPUSCULAR HEMOGLOBIN 31.2 pg (27.0-33.0); MEAN CORPUSCULAR HGB CONC 33.3 g/dl (32.0-36.5); MEAN CORPUSCULAR VOLUME 93.6 fl (80.0-96.0); MONO # 0.9 10^3/uL (0.0-0.8); MONO % 5.9 % (0.0-5.0); NEUTROPHILS # 12.4 10^3/uL (1.5-8.5); NEUTROPHILS % 82.8 % (36.0-66.0); PLATELET COUNT, AUTOMATED 278 10^3/uL (150-450); RED BLOOD COUNT 5.03 10^6/uL (4.00-5.40); WHITE BLOOD COUNT 14.9 10^3/uL (4.0-10.0)
[2020-09-25 11:41] LABS: ALBUMIN 3.9 GM/DL (3.2-5.2); BILIRUBIN,DIRECT 0.2 MG/DL (0.0-0.2); BILIRUBIN,TOTAL 0.6 MG/DL (0.2-1.0); TOTAL PROTEIN 7.5 GM/DL (6.4-8.2)
[2020-09-25] MEDS ORDERED: ONDANSETRON 4MG/2ML VIAL IV ONE (11:45)
[2020-09-25] MEDS ORDERED: ISOVUE-370 76% 100ML VIAL As Ordered ONE (11:45)
[2020-09-25] MEDS ORDERED: MORPHINE 2 MG/ML 1ML VIAL (J2270) IV ONE (11:45)
--- NOTE | 2020-09-25 12:23 | REP ---
INDICATION: lower abdominal pain COMPARISON: 04/01/2020 TECHNIQUE: CT Scan of the abdomen and pelvis was performed with intravenous administration of 100 cc of Isovue 370, without oral contrast. FINDINGS: Lung bases: There are fibrotic changes noted. Liver: Normal Gallbladder: Prior cholecystectomy.. Spleen: Normal. Adrenals: Normal. Pancreas: Normal. Kidneys: Normal. Small and large bowel: Unremarkable. Free fluid: None. Adenopathy: None. Appendix: There is diffuse thickening of the appendix, which is mildly dilated. There is diffuse ill-defined edema and inflammation in the surrounding mesenteric fat. Findings are consistent with appendicitis.. There is no free air. There is no abscess. Osseous structures: Unremarkable. Pelvis: No mass. There is a small midline supraumbilical hernia containing fat. Similar appearing small anterior abdominal wall hernia seen just to the right of midline at the level of the liver, also containing noninflamed fat. IMPRESSION: There is diffuse thickening of the appendix, which is mildly dilated. There is diffuse ill-defined edema and inflammation in the surrounding mesenteric fat. Findings are consistent with appendicitis.. There is no free air. There is no abscess. <Electronically signed by Chicho Fernandes > 09/25/20 [id number]
[2020-09-25] MEDS ORDERED: UNIS25TA3 PO (13:13)
[2020-09-25] MEDS ORDERED: ZOSYN 3.375GM VIAL (J2543) As Ordered ONE ×2 (15:17→16:13)
[2020-09-25] MEDS: PIPERACILLIN/TAZOBACTAM SOD 3.375 GM in D5W MINI-BAG PLUS 50 ML IV SCH ×2 (15:28→21:00)
[2020-09-25] MEDS: NS 1,000 ML IV SCH ×2 (15:28→23:04)
[2020-09-25] MEDS ORDERED: BUPIVACAINE HCL 0.25% 30ML VIAL As Ordered ONE (16:07)
[2020-09-25] MEDS ORDERED: ONDANSETRON 4MG/2ML VIAL As Ordered ONE (17:26)
[2020-09-25] MEDS ORDERED: propofoL 200 MG/20 ML VIAL As Ordered ONE (17:26)
[2020-09-25] MEDS ORDERED: ROCURONIUM BROMIDE 50 MG/5 ML VIAL As Ordered ONE (17:26)
[2020-09-25] MEDS ORDERED: dexameTHASONE 4 MG/ML 1ML VIAL (J1100 PER 1MG) As Ordered ONE (17:26)
[2020-09-25] MEDS ORDERED: MIDAZOLAM INJ 2MG/2ML VIAL (J2250 PER 1MG) As Ordered ONE (17:26)
[2020-09-25] MEDS ORDERED: LIDOCAINE 2% 100MG/5ML SDV (FOR ANES.) As Ordered ONE (17:26)
[2020-09-25] MEDS ORDERED: fentaNYL 250 MCG/5 ML INJECTION (J3010) As Ordered ONE (17:26)
[2020-09-25] MEDS ORDERED: ePHEDrine SULFATE 25 MG/5 ML(5MG/ML) SYRINGE As Ordered ONE (17:27)
[2020-09-25] MEDS ORDERED: PHENYLephrine HCL 500 MCG/5 ML (100MCG/ML) SYRINGE (J2370) As Ordered ONE (17:28)
[2020-09-25] MEDS ORDERED: SUGAMMADEX SODIUM 500 MG/5 ML VIAL (BRIDION) As Ordered ONE (17:36)
[2020-09-25] MEDS ORDERED: KETOROLAC 60MG 2ML VIAL As Ordered ONE (17:36)
[2020-09-25] MEDS ORDERED: KETOROLAC 30 MG/ML 1ML VIAL IV PRN (18:30)
[2020-09-25] MEDS ORDERED: ALBUTEROL 90 MCG/ACT 8GM HFA INHALER INH PRN (19:15)
[2020-09-25] MEDS ORDERED: ACETAMINOPHEN TAB 650MG DOSE (2X325MG) PO PRN (19:15)
[2020-09-25] MEDS ORDERED: ONDANSETRON 4MG/2ML VIAL IV PRN (19:30)
[2020-09-25] MEDS ORDERED: METOCLOPRAMIDE INJ 10MG/2ML VIAL (J2765 PER 1) IV PRN (19:30)
[2020-09-25] MEDS ORDERED: LR 1,000 ML IV SCH (19:30)
[2020-09-25] MEDS ORDERED: HYDROMORPHONE HCL 0.5 MG/ 0.5 ML SYRINGE (J1170 PER 1) IV PRN (19:30)
[2020-09-25] MEDS ORDERED: fentaNYL 100 MCG/2 ML INJECTION (J3010) IV PRN (19:30)
[2020-09-25 19:45] VITALS: BP 113/72
[2020-09-25 20:15] VITALS: BP 111/70
[2020-09-25 20:45] VITALS: BP 110/69
[2020-09-25 21:45] VITALS: BP 108/69
[2020-09-25] MEDS: ACETAMINOPH W/CODEINE #3 TAB UD PO PRN (22:05)
[2020-09-25 22:45] VITALS: BP 125/72
[2020-09-25 23:45] VITALS: BP 124/71
[2020-09-26 00:45] VITALS: BP 125/71
[2020-09-26] MEDS: MORPHINE 2 MG/ML 1ML VIAL (J2270) IV PRN ×4 (01:44→21:34)
[2020-09-26] MEDS: KETOROLAC 30 MG/ML 1ML VIAL IV PRN (02:18)
[2020-09-26] MEDS: PIPERACILLIN/TAZOBACTAM SOD 3.375 GM in D5W MINI-BAG PLUS 50 ML IV SCH ×3 (03:18→15:33)
[2020-09-26 04:45] VITALS: BP 104/64
[2020-09-26] MEDS: ACETAMINOPH W/CODEINE #3 TAB UD PO PRN (06:27)
[2020-09-26] MEDS: NS 1,000 ML IV SCH ×2 (06:27→15:04)
[2020-09-26 06:50] LABS: BASO % 0.1 % (0.0-1.0); HEMATOCRIT 38.3 % (36.0-47.0); LYMPH # 0.9 10^3/uL (1.5-5.0); LYMPH % 6.9 % (24.0-44.0); MEAN CORPUSCULAR HEMOGLOBIN 30.3 pg (27.0-33.0); MEAN CORPUSCULAR HGB CONC 32.1 g/dl (32.0-36.5); MEAN CORPUSCULAR VOLUME 94.3 fl (80.0-96.0); MONO # 0.5 10^3/uL (0.0-0.8); MONO % 4.2 % (0.0-5.0); NEUTROPHILS # 11.5 10^3/uL (1.5-8.5); NEUTROPHILS % 88.3 % (36.0-66.0); PLATELET COUNT, AUTOMATED 220 10^3/uL (150-450); RED BLOOD COUNT 4.06 10^6/uL (4.00-5.40)
[2020-09-26 06:56] LABS: HEMOGLOBIN 12.3 g/dl (12.0-15.5)
--- NOTE | 2020-09-26 09:55 | RO ---
DATE OF OPERATION: 09/25/2020 PREOPERATIVE DIAGNOSIS: Acute appendicitis. POSTOPERATIVE DIAGNOSIS: Acute appendicitis and peritoneal adhesions. PROCEDURE PERFORMED: Laparoscopic lysis of adhesions and laparoscopic appendectomy. SURGEON: Alban Patterson MD ANESTHESIA: General. INDICATIONS FOR PROCEDURE: Patient is a 64-year-old woman who presented to the emergency department with a one-day history of abdominal pain becoming localized to the right lower quadrant. She was found to have marked right lower quadrant tenderness. Her white blood cell count was somewhat elevated with a left shift and a CT scan showed inflammatory changes of the appendix. She is now for an appendectomy. OPERATIVE PROCEDURE: The patient was brought to the operating room and placed on the table in a supine position. She was placed under general endotracheal anesthesia. The patients abdomen was prepped and draped in a sterile fashion. A 0.25% Marcaine was infiltrated at each of the trocar sites as needed. Inspection showed a scar in the periumbilical location related to a prior partial colectomy. She had several small trocar site scars otherwise. I elected to make the initial entry in the left upper quadrant. A small skin cortney was made and the Veress needle was inserted and after a positive hanging drop test, the abdomen was insufflated with carbon dioxide gas. A small incision was made in the left lower quadrant slightly below the level of the umbilicus and a 5-mm port was placed over a 5-mm scope and advanced through the abdominal wall without difficulty. On entering the abdomen, the port entered in a clear space. There were, however, a large number of adhesions of the omentum to the anterior abdominal wall along the midline. A second 5-mm port was placed through the Veress needle site in the left upper quadrant. Then using cauterizing scissors, the adhesions were lysed freeing the omentum from the anterior abdominal wall. Care was taken to ensure hemostasis. A 12-mm port was then placed in the right upper quadrant. Graspers were inserted. The patient was tilted to a slight Trendelenburg position and rolled slightly to the left. The terminal ileum was identified and as this was rolled medially; the inflamed appendix was identified walled off between the terminal ileum and the retroperitoneum. There was clearly some acute inflammation with some exudate evident but no sign of definite perforation. The appendix was freed by blunt dissection from the retroperitoneum and elevated. The mesoappendix was divided using the cautery. The appendix was freed down to the base of the appendix. A 45-mm endoscopic linear cutter stapler with a green load was placed across the base of the appendix at its junction with the cecum and closed and fired. The appendix was placed in an Endopouch. There was no significant bleeding at the staple line. The right lower quadrant was irrigated with saline and inspected. There was no evidence of any residual inflammatory debris and no bleeding. The patient was returned to a flat position. The abdomen was deflated and the trocars were removed. The appendix was recovered through the right upper quadrant 12-mm port site. The anterior fascia of the right upper quadrant port site was closed with interrupted simple sutures of 2-0 Vicryl. The skin incisions were all closed with buried 4-0 Vicryl and Steri-Strips. Light dressings were applied. The patient tolerated the procedure well without apparent complication. She was awakened in the operating room, extubated, and moved to the recovery room in stable condition. CECILLE
[2020-09-26 14:00] VITALS: BP 100/53
[2020-09-26] MEDS: ONDANSETRON 4MG/2ML VIAL IV PRN ×2 (16:53→21:24)
[2020-09-26 20:45] VITALS: BP 123/71
[2020-09-27 02:00] VITALS: BP 125/67
[2020-09-27] MEDS: NS 1,000 ML IV SCH (04:06)
[2020-09-27] MEDS: KETOROLAC 30 MG/ML 1ML VIAL IV PRN ×2 (04:06→04:45)
[2020-09-27] MEDS: ONDANSETRON 4MG/2ML VIAL IV PRN ×3 (04:45→17:43)
[2020-09-27 06:00] VITALS: BP 125/68
[2020-09-27 07:33] LABS: BASO % 0.3 % (0.0-1.0); EOS # 0.2 10^3/uL (0.0-0.5); EOS % 1.6 % (0.0-3.0); HEMATOCRIT 37.4 % (36.0-47.0); LYMPH # 1.8 10^3/uL (1.5-5.0); LYMPH % 19.4 % (24.0-44.0); MEAN CORPUSCULAR HEMOGLOBIN 30.5 pg (27.0-33.0); MEAN CORPUSCULAR HGB CONC 32.1 g/dl (32.0-36.5); MEAN CORPUSCULAR VOLUME 95.2 fl (80.0-96.0); MONO # 0.6 10^3/uL (0.0-0.8); MONO % 6.1 % (0.0-5.0); NEUTROPHILS # 6.8 10^3/uL (1.5-8.5); NEUTROPHILS % 72.2 % (36.0-66.0); PLATELET COUNT, AUTOMATED 227 10^3/uL (150-450); RED BLOOD COUNT 3.93 10^6/uL (4.00-5.40); WHITE BLOOD COUNT 9.4 10^3/uL (4.0-10.0)
--- NOTE | 2020-09-27 08:00 | IPN ---
DATE: 09/26/2020 HISTORY: The patient is now postop day number one from a laparoscopic appendectomy for acute appendicitis. She has done well overnight and has remained afebrile. She reported earlier to the nurse that she was eager for discharge and felt she was ready. Vital signs show that she has been afebrile since surgery. Her pulse is in the 60s and 70s and her blood pressure is good. Intake and output shows that she had 750 of oral intake today with a urine output that is excellent. PHYSICAL EXAMINATION: GENERAL APPEARANCE: The patient is alert and sitting up in bed. However, while I was talking with her about possible discharge she reported some nausea. She did have an episode of emesis immediately after that. HEART: Exam prior to the episode was regular, in the 70s. LUNGS: Clear. ABDOMEN: Soft with dry dressings in place. She had some bowel sounds present and there was no undue tenderness. LABORATORY STUDIES: This morning she had a CBC with a diff showing a white count of 13,000 which was down from 15 yesterday late morning. Hemoglobin and hematocrit are 12 and 38 and her platelet count is 220,000. She still had a prominence of neutrophils with 88% and 7% lymphocytes. IMPRESSION: The patient is now postop day one from a laparoscopic appendectomy. She had been doing quite well during the day today. She has had a dose of Toradol early in the morning with a dose of Morphine in the afternoon and some Tylenol with Codeine also before breakfast. Unfortunately she developed some nausea which was temporally related to her receiving a new dose of Zosyn, but also followed shortly after having a dose of Morphine IV. PLAN: I am going to stop her Zosyn. This was only for surgical prophylaxis although her appendix was quite inflamed, but I do not believe actually perforated at the time of her surgery. Certainly there was no gross perforation. I will encourage her to avoid any further narcotics as much as possible as this may be the source of her nausea. We will see how she does overnight, and if she has resolution of her nausea with no further vomiting, then I anticipate she could go home in the morning. CECILLE
[2020-09-27 10:00] VITALS: BP 137/67
[2020-09-27] MEDS: LR 1,000 ML IV SCH ×2 (10:44→17:43)
[2020-09-27] MEDS: PANTOPRAZOLE 40MG VIAL (C9113 PER 1) IV SCH (10:44)
[2020-09-27] MEDS: KETOROLAC 30 MG/ML 1ML VIAL IV SCH ×3 (10:45→23:08)
[2020-09-27 14:00] VITALS: BP 130/70
[2020-09-27] MEDS ORDERED: METOCLOPRAMIDE INJ 10MG/2ML VIAL (J2765 PER 1) IV PRN (16:30)
[2020-09-27 18:00] VITALS: BP 132/71
[2020-09-27] MEDS ORDERED: diphenhydrAMINE 50MG/ML VIAL (J1200) IV ONE (20:30)
[2020-09-27 22:00] VITALS: BP 132/75
[2020-09-28] MEDS: LR 1,000 ML IV SCH ×2 (02:13→08:59)
--- NOTE | 2020-09-28 04:40 | REP ---
INDICATION: post op nausea and vomiting COMPARISON: None. TECHNIQUE: Supine view of the abdomen and pelvis. FINDINGS: Surgical clips in the right upper quadrant consistent with prior cholecystectomy. The bowel gas pattern is relatively nonspecific and without obstruction or perforation. Liver is upper limits of normal in size. No abnormal calcifications or foreign body. Skeletal structures are intact. IMPRESSION: Nonspecific bowel gas pattern. <Electronically signed by Valerio Carlos > 09/28/20 [id number]
[2020-09-28 06:00] VITALS: BP 119/72
[2020-09-28] MEDS: KETOROLAC 30 MG/ML 1ML VIAL IV SCH ×2 (06:02→11:00)
[2020-09-28] MEDS: PANTOPRAZOLE 40MG VIAL (C9113 PER 1) IV SCH (08:59)
[2020-09-28 09:45] LABS: BASO % 0.6 % (0.0-1.0); EOS # 0.2 10^3/uL (0.0-0.5); EOS % 2.4 % (0.0-3.0); HEMOGLOBIN 11.9 g/dl (12.0-15.5); LYMPH # 1.8 10^3/uL (1.5-5.0); LYMPH % 25.2 % (24.0-44.0); MEAN CORPUSCULAR HEMOGLOBIN 31.1 pg (27.0-33.0); MEAN CORPUSCULAR HGB CONC 32.2 g/dl (32.0-36.5); MEAN CORPUSCULAR VOLUME 96.6 fl (80.0-96.0); MONO # 0.4 10^3/uL (0.0-0.8); MONO % 5.7 % (0.0-5.0); NEUTROPHILS # 4.7 10^3/uL (1.5-8.5); NEUTROPHILS % 65.8 % (36.0-66.0); PLATELET COUNT, AUTOMATED 238 10^3/uL (150-450); RED BLOOD COUNT 3.83 10^6/uL (4.00-5.40); WHITE BLOOD COUNT 7.2 10^3/uL (4.0-10.0)
[2020-09-28 10:00] VITALS: BP 148/68
[2020-09-28 10:04] LABS: ALT/SGPT 27 U/L (12-78); BILIRUBIN,TOTAL 0.5 MG/DL (0.2-1.0); BLOOD UREA NITROGEN 14 MG/DL (7-18); CALCIUM LEVEL 8.9 MG/DL (8.8-10.2); CARBON DIOXIDE LEVEL 28 MEQ/L (21-32); CHLORIDE LEVEL 112 MEQ/L (98-107); CREATININE FOR GFR 0.78 MG/DL (0.55-1.30); GLOMERULAR FILTRATION RATE > 60.0 (>45); GLUCOSE, FASTING 91 MG/DL (70-100); POTASSIUM SERUM 4.3 MEQ/L (3.5-5.1); SODIUM LEVEL 146 MEQ/L (136-145); TOTAL PROTEIN 5.9 GM/DL (6.4-8.2)
--- NOTE | 2020-10-03 09:22 | IPN ---
DATE: 09/27/2020 HISTORY: Patient is post-op day number 2 from a laparoscopic appendectomy for acute appendicitis. She was having some nausea on post-op day 1 yesterday as well as some vomiting and was kept overnight. Unfortunately today she reports that she is still feeling quite nauseous and having what she describes as a lot of abdominal pain. PHYSICAL EXAMINATION: Vital signs show that she has been afebrile over the past 24 hours. Her pulse has generally been in the 70s and 80s. Blood pressure has been in a good range over the past 24 hours. Intake and output shows that yesterday she had 2800 recorded in with 1475 recorded out. She did have 150 mL of emesis recorded yesterday with several episodes of emesis of small amounts during the course of the day this morning. The patient appears quite anxious and basically uncomfortable and miserable. She is at some points tearful regarding how she feels in discussing this. HEENT: sclerae are anicteric. Heart exam: Regular rate and rhythm and she is not tachycardic. Lungs: Clear. Abdomen: Perhaps mildly distended. Her incisions look clean with no sign of infection. She does have a little bruising near the umbilicus and she did have some adhesions taken down off the anterior abdominal wall over a fairly broad area. The abdomen shows some tenderness, but this I do not believe is beyond what would be expected for her lysis of adhesions of appendectomy. LABORATORY DATA: Laboratory studies show a white count of 9 which is down into the normal range for the first time since admission. Her hemoglobin is 12 with a hematocrit of 37 and the platelet count is 227. Differential count shows 72% neutrophils and 19% lymphocytes. IMAGING STUDIES: A KUB was ordered and this shows a nonspecific bowel gas pattern. There are a few small bowel loops in the mid-abdomen with some air, but no definite distention. IMPRESSION: Patient continues to have significant nausea and abdominal pain now 2 days post-op from her surgery. She has been trying to take liquids without success and remains quite uncomfortable. I suspect that this is all just a significant sensitivity to narcotics as she does report adverse effects from OXYCODONE and PROPOXYPHENE. PLAN: I will make the patient n.p.o. for the rest of the day and increase her I.V. fluids to ensure that she is not becoming dehydrated. I have encouraged her to use plain Tylenol or Toradol as needed for discomfort and will not provide any additional narcotics at this point. She is encouraged to be up and about as able. Hopefully by the morning her stomach will have settled and we will be able to put her back on some liquids and advance her diet. CECILLE
--- NOTE | 2020-10-03 09:24 | IPN ---
DATE: 09/28/2020 HISTORY: Patient is now post-op day number 3 from a laparoscopic appendectomy for acute appendicitis. She is feeling much better today. She had significant nausea with vomiting over the last 2 days which I suspect was related primarily to a particular sensitivity to narcotics. She has been tolerating liquids this morning without any further nausea or vomiting and her pain has settled down dramatically. PHYSICAL EXAMINATION: Vital signs show that she has been afebrile over the past 24 hours. Pulse is in the 70s-80s normally and she has a good blood pressure. Intake and output shows that she had 850 recorded in yesterday with 700 recorded out. She has been taking some clear liquids this morning and her urine output is good. She has had a bowel movement today as well. Physical exam shows that she is much more comfortable appearing today. She seems cheerful and is eager to go home. Heart exam: Regular rhythm. Lungs: Clear. Abdomen: Perhaps still mildly distended, but soft. Her incisions are clean and dry and she has active bowel sounds. LABORATORY DATA: Laboratory studies today show a white count of 7 with a differential showing 66% neutrophils, 25% lymphocytes and 6% monocytes. Her chemistry profile shows acceptable electrolytes with normal liver function tests and a total protein of 5.9 with an albumin of 3. IMPRESSION: Patient has finally had her stomach settle down and is able to tolerate a diet and is comfortable and eager to go home. PLAN: Patient will be discharged home today. She was counseled that she should follow up in the office in approximately 10 days for a routine follow up. She was advised against any strenuous lifting or other activities for the next 2 weeks. She was to leave the Steri-Strips on her wounds to come off on their own, but could shower as desired. She was to take a regular diet as desired. She was to continue her pre-admission medications. I was not going to provide her with any additional meds at the time of discharge. She was to call the office for any problems. CECILLE
== END 2020-09-28 12:07 | disposition home or self-care (01) | DRG 225 ==
LOC: M ED 10:32 → M SDC 10:33 → M MSPAV 19:44
PROVIDERS: ADMIT Surgery; ATTEND Surgery
PROC: 0DTJ4ZZ Resection of Appendix, Percutaneous Endoscopic Approach (ICD-10-PCS; principal; 2020-09-25 13:42)
DX: K35.80 Unspecified acute appendicitis (principal); F17.200 Nicotine dependence, unspecified, uncomplicated; K66.0 Peritoneal adhesions (postprocedural) (postinfection); Z79.899 Other long term (current) drug therapy; Z88.5 Allergy status to narcotic agent

== ENCOUNTER 2021-01-04 12:40 | Emergency (ER) | payer BC ==
[~2021-01-04] VITALS: Ht 160 cm; Wt 64.5 kg
[~2021-01-04 12:40] MED LIST changes: +ALBU8.5H INH; +NAPR-885 PO; +TRAZ-257 PO; +UNIS25TA3 PO; +ZOLP10TA2
[2021-01-04] MEDS ORDERED: ZOLP10TA2 PO (13:00)
[2021-01-04] MEDS ORDERED: MECLIZINE 25 MG TABLET PO ONE (13:15)
[2021-01-04] MEDS ORDERED: NS 1,000 ML IV ONE (13:15)
[2021-01-04 13:44] LABS: HEMATOCRIT 46.2 % (36.0-47.0); HEMOGLOBIN 15.8 g/dl (12.0-15.5); MEAN CORPUSCULAR HEMOGLOBIN 31.5 pg (27.0-33.0); MEAN CORPUSCULAR HGB CONC 34.2 g/dl (32.0-36.5); PLATELET COUNT, AUTOMATED 246 10^3/uL (150-450); RED BLOOD COUNT 5.02 10^6/uL (4.00-5.40); WHITE BLOOD COUNT 7.7 10^3/uL (4.0-10.0)
[2021-01-04 14:09] LABS: BLOOD UREA NITROGEN 16 MG/DL (7-18); CALCIUM LEVEL 9.9 MG/DL (8.8-10.2); CARBON DIOXIDE LEVEL 26 MEQ/L (21-32); CHLORIDE LEVEL 108 MEQ/L (98-107); CREATININE FOR GFR 0.84 MG/DL (0.55-1.30); GLOMERULAR FILTRATION RATE > 60.0 (>45); GLUCOSE, FASTING 116 MG/DL (70-100); POTASSIUM SERUM 4.4 MEQ/L (3.5-5.1); SODIUM LEVEL 140 MEQ/L (136-145)
--- NOTE | 2021-01-04 15:13 | REP ---
INDICATION: CP. COMPARISON: Comparison chest x-ray 17 August 2020.. TECHNIQUE: Portable upright AP radiograph. FINDINGS: Monitoring electrodes are seen. Post surgical sutures are seen in the right apex and right mid lung zone unchanged with some adjacent fibrosis. There is slight blunting of the right lateral pleural angle consistent with fibrosis here as well. This is also unchanged. Lung [place] are otherwise well inflated and clear. Heart size is normal. Pulmonary vasculature is not increased. No significant bony abnormality IMPRESSION: Post thoracotomy sutures and associated fibrosis changes on the right. No active disease. <Electronically signed by Mando Nelson > 01/04/21 [id number]
[2021-01-04 16:45] VITALS: BP 123/72
--- NOTE | 2021-01-04 21:03 | ECGEPIP ---
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
== END 2021-01-04 17:28 | disposition home or self-care (01) ==
LOC: M ED 12:40
DX: H81.399 Other peripheral vertigo, unspecified ear (principal); R19.7 Diarrhea, unspecified; F17.200 Nicotine dependence, unspecified, uncomplicated; Z85.038 Personal history of other malignant neoplasm of large intestine; Z88.6 Allergy status to analgesic agent; Z88.8 Allergy status to other drugs, medicaments and biological substances

== ENCOUNTER → 2021-06-11 | Outpatient (CLI) | payer BC ==
[~2021-06-11] MED LIST changes: +ZOLP10TA2 PO
--- NOTE | 2021-06-11 10:29 | REP ---
INDICATION: ADULT PULMONARY LANGERHANS CELL HISTIOCYTOSIS COMPARISON: 06/16/2020 TECHNIQUE: Axial noncontrast images from the thoracic inlet to the upper abdomen with coronal and sagittal reformations. This CT examination was performed using the following dose reduction techniques: Automated exposure control, adjustment of mA and/or kv according to the patient's size, and use of iterative reconstruction technique. FINDINGS: Lung [place] demonstrate chronic cystic changes along with areas of scarring primarily at the bilateral apices and lateral aspect of the right mid lung zone. Previously noted small scattered nodular opacities have resolved. No acute consolidation, suspicious nodule or mass. Tracheobronchial tree is patent. No effusion. No pneumothorax. No significant adenopathy. Thoracic aorta and heart/pericardium are relatively normal/stable. Surrounding musculoskeletal structures demonstrate age-related changes. Limited upper abdomen demonstrates normal bilateral adrenal glands and evidence for prior cholecystectomy. IMPRESSION: Chronic appearing changes consistent with the given history of Langerhans cell histiocytosis. The previously identified scattered infectious/inflammatory nodules have resolved. No acute mediastinal or pleuroparenchymal process identified. <Electronically signed by Valerio Carlos > 06/11/21 1020
== END ==
LOC: M RAD 09:17
PROVIDERS: ATTEND Internal Medicine Pulmonary Disease
DX: J84.82 Adult pulmonary Langerhans cell histiocytosis (principal)

== ENCOUNTER 2021-10-19 13:08 | Emergency (ER) | payer BC ==
[~2021-10-19] VITALS: Ht 160 cm; Wt 65.3 kg
[2021-10-19 13:16] VITALS: BP 133/56
--- OUTSIDE RECORDS SUMMARY | 2021-10-19 13:16 | CCD ---
Author Author [facility] Organization [facility] Address Unknown Phone Unavailable Care Team Providers Care Environmental Health Safety Engineer Name Role Phone Mali Ash MD Unavailable Unavailable Mali Ash MD Unavailable Unavailable Mali Ash MD Unavailable Unavailable Mali Ash MD Unavailable Unavailable Mali Ash MD Unavailable Unavailable Mali Ash MD Unavailable Unavailable Mali Ash MD Unavailable Unavailable Mali Ash MD Unavailable Unavailable Mali Ash MD Unavailable Unavailable Mali Ash MD Unavailable Unavailable Mali Ash MD Unavailable Unavailable Mali Ash MD Unavailable Unavailable Mali Ash MD Unavailable Unavailable Mali Ash MD Unavailable Unavailable Mali Ash MD Unavailable Unavailable Mali Ash MD Unavailable Unavailable Mali Ash MD Unavailable Unavailable Mali Ash MD Unavailable Unavailable Mali Ash MD Unavailable Unavailable Mali Ash MD Unavailable Unavailable Mali Ash MD Unavailable Unavailable Mali Ash MD Unavailable Unavailable Mali Ash MD Unavailable Unavailable Mali Ash MD Unavailable Unavailable Mali Ash MD Unavailable Unavailable Mali Ash MD Unavailable Unavailable Mali Ash MD Unavailable Unavailable Mali Ash MD Unavailable Unavailable Mali Ash MD Unavailable Unavailable Mali Ash MD Unavailable Unavailable Mali Ash MD Unavailable Unavailable Mali Ash MD Unavailable Unavailable Mali Ash MD Unavailable Unavailable Mali Ash MD Unavailable Unavailable Mali Ash MD Unavailable Unavailable Mali Ash MD Unavailable Unavailable Mali Ash MD Unavailable Unavailable Mali Ash MD Unavailable Unavailable Mali Ash MD Unavailable Unavailable Mali Ash MD Unavailable Unavailable Mali Ash MD Unavailable Unavailable Mali Ash MD Unavailable Unavailable Mali Ash MD Unavailable Unavailable Mali Ash MD Unavailable Unavailable Mali Ash MD Unavailable Unavailable Mali Ash MD Unavailable Unavailable Mali Ash MD Unavailable Unavailable Mali Ash MD Unavailable Unavailable Mali Ash MD Unavailable Unavailable Mali Ash MD Unavailable Unavailable Mali Ash MD Unavailable Unavailable Mali Ash MD Unavailable Unavailable Mali Ash MD Unavailable Unavailable Mali Ash MD Unavailable Unavailable Mali Ash MD Unavailable Unavailable Mali Ash MD Unavailable Unavailable Mali Ash MD Unavailable Unavailable Mali Ash MD Unavailable Unavailable Mali Ash MD Unavailable Unavailable Mali Ash MD Unavailable Unavailable Mali Ash MD Unavailable Unavailable Mali Ash MD Unavailable Unavailable Mali Ash MD Unavailable Unavailable Mali Ash MD Unavailable Unavailable Mali Ahs MD Unavailable Unavailable Mali Ash MD Unavailable Unavailable Mali Ash MD Unavailable Unavailable Mali Ash MD Unavailable Unavailable Mali Ash MD Unavailable Unavailable Mali Ash MD Unavailable Unavailable Mali Ash MD Unavailable Unavailable Mali Ash MD Unavailable Unavailable Mali Ash MD Unavailable Unavailable Mali Ash MD Unavailable Unavailable Mali Ash MD Unavailable Unavailable Mali Ash MD Unavailable Unavailable Mali Ash MD Unavailable Unavailable Mali Ash MD Unavailable Unavailable Mali Ash MD Unavailable Unavailable Mali Ash MD Unavailable Unavailable Mali Ash MD Unavailable Unavailable Mali Ash MD Unavailable Unavailable Mali Ash MD Unavailable Unavailable Mali Ash MD Unavailable Unavailable Mali Ash MD Unavailable Unavailable Mali Ash MD Unavailable Unavailable Mali Ash MD Unavailable Unavailable Mali Ash MD Unavailable Unavailable Mali Ash MD Unavailable Unavailable Mali Ash MD Unavailable Unavailable Mali Ash MD Unavailable Unavailable Mali Ash MD Unavailable Unavailable Mali Ash MD Unavailable Unavailable [place], Luiza Stevo FURNITURE DUSTER Unavailable Unavailable [place], Luiza Stevo FURNITURE DUSTER Unavailable Unavailable Anup, Luiza Stevo FURNITURE DUSTER Unavailable Unavailable Anup, Luiza Stevo FURNITURE DUSTER Unavailable Unavailable [place], Luiza Stevo FURNITURE DUSTER Unavailable Unavailable [place], Luiza Stevo FURNITURE DUSTER Unavailable Unavailable Anup, Luiza Stevo FURNITURE DUSTER Unavailable Unavailable [place], Luiza Stevo FURNITURE DUSTER Unavailable Unavailable [place], Luiza Stevo FURNITURE DUSTER Unavailable Unavailable [place], Luiza Stevo FURNITURE DUSTER Unavailable Unavailable [place], Luiza Stevo FURNITURE DUSTER Unavailable Unavailable Anup, Luiza Stevo FURNITURE DUSTER Unavailable Unavailable [place], Luiza Stveo FURNITURE DUSTER Unavailable Unavailable [place], Luiza Stevo FURNITURE DUSTER Unavailable Unavailable Delia Yañez MD Unavailable Unavailable Delia Yañez MD Unavailable Unavailable Delia Yañez MD Unavailable Unavailable Delia Yañez MD Unavailable Unavailable Delia Yañez MD Unavailable Unavailable Delia Yañez MD Unavailable Unavailable Delia Yañez MD Unavailable Unavailable Delia Yañez MD Unavailable Unavailable Delia Yañez MD Unavailable Unavailable Delia Yañez MD Unavailable Unavailable Delia Yañez MD Unavailable Unavailable Delia Yañez MD Unavailable Unavailable Delia Yañez MD Unavailable Unavailable Delia Yañez MD Unavailable Unavailable Delia Yañez MD Unavailable Unavailable Delia Yañez MD Unavailable Unavailable Delia Yañez MD Unavailable Unavailable Delia Yañez MD Unavailable Unavailable Delia Yañez MD Unavailable Unavailable Delia Yañez MD Unavailable Unavailable Delia Yañez MD Unavailable Unavailable Delia Yañez MD Unavailable Unavailable Delia Yañez MD Unavailable Unavailable Delia Yañez MD Unavailable Unavailable Delia Yañez MD Unavailable Unavailable Delia Yañez MD Unavailable Unavailable Delia Yañez MD Unavailable Unavailable Delia Yañez MD Unavailable Unavailable Delia Yañez MD Unavailable Unavailable Delia Yañez MD Unavailable Unavailable TONTARSKI, G JUSTYNA PA Unavailable Unavailable TONTARSKI, G JUSTYNA PA Unavailable Unavailable TONTARSKI, G JUSTYNA PA Unavailable Unavailable TONTARSKI, G JUSTYNA PA Unavailable Unavailable TONTARSKI, G JUSTYNA PA Unavailable Unavailable TONTARSKI, G JUSTYNA PA Unavailable Unavailable TONTARSKI, G JUSTYNA PA Unavailable Unavailable TONTARSKI, G JUSTYNA PA Unavailable Unavailable TONTARSKI, G JUSTYNA PA Unavailable Unavailable TONTARSKI, G JUSTYNA PA Unavailable Unavailable TONTARSKI, G JUSTYNA PA Unavailable Unavailable TONTARSKI, G JUSTYNA PA Unavailable Unavailable TONTARSKI, G JUSTYNA PA Unavailable Unavailable TONTARSKI, G JUSTYNA PA Unavailable Unavailable TONTARSKI, G JUSTYNA PA Unavailable Unavailable TONTARSKI, G JUSTYNA PA Unavailable Unavailable TONTARSKI, G JUSTYNA PA Unavailable Unavailable TONTARSKI, G JUSTYNA PA Unavailable Unavailable TONTARSKI, G JUSTYNA PA Unavailable Unavailable TONTARSKI, G JUSTYNA PA Unavailable Unavailable TONTARSKI, G JUSTYNA PA Unavailable Unavailable TONTARSKI, G JUSTYNA PA Unavailable Unavailable TONTARSKI, G JUSTYNA PA Unavailable Unavailable TONTARSKI, G JUSTYNA PA Unavailable Unavailable TONTARSKI, G JUSTYNA PA Unavailable Unavailable TONTARSKI, G JUSTYNA PA Unavailable Unavailable TONTARSKI, G JUSTYNA PA Unavailable Unavailable TONTARSKI, G JUSTYNA PA Unavailable Unavailable TONTARSKI, G JUSTYNA PA Unavailable Unavailable TONTARSKI, G JUSTYNA PA Unavailable Unavailable TONTARSKI, G JUSTYNA PA Unavailable Unavailable TONTARSKI, G JUSTYNA PA Unavailable Unavailable TONTARSKI, G JUSTYNA PA Unavailable Unavailable TONTARSKI, G JUSTYNA PA Unavailable Unavailable TONTARSKI, G JUSTYNA PA Unavailable Unavailable TONTARSKI, G JUSTYNA PA Unavailable Unavailable TONTARSKI, G JUSTYNA PA Unavailable Unavailable TONTARSKI, G JUSTYNA PA Unavailable Unavailable TONTARSKI, G JUSTYNA PA Unavailable Unavailable TONTARSKI, G JUSTYNA PA Unavailable Unavailable TONTARSKI, G JUSTYNA PA Unavailable Unavailable TONTARSKI, G JUSTYNA PA Unavailable Unavailable TONTARSKI, G JUSTYNA PA Unavailable Unavailable TONTARSKI, G JUSTYNA PA Unavailable Unavailable TONTARSKI, G JUSTYNA PA Unavailable Unavailable TONTARSKI, G JUSTYNA PA Unavailable Unavailable TONTARSKI, G JUSTYNA PA Unavailable Unavailable TONTARSKI, G JUSTYNA PA Unavailable Unavailable Re-disclosure Warning The records that you are about to access may contain information from federally-assisted alcohol or drug abuse programs. If such information is present, then the following federally mandated warning applies: This information has been disclosed to you from records protected by federal confidentiality rules (42 CFR part 2). The federal rules prohibit you from making any further disclosure of this information unless further disclosure is expressly permitted by the written consent of the person to whom it pertains or as otherwise permitted by 42 CFR part 2. A general authorization for the release of medical or other information is NOT sufficient for this purpose. The Federal rules restrict any use of the information to criminally investigate or prosecute any alcohol or drug abuse patient.The records that you are about to access may contain highly sensitive health information, the redisclosure of which is protected by Article 27-F of the [facility] Public Health law. If you continue you may have access to information: Regarding HIV / AIDS; Provided by facilities licensed or operated by the [facility] Office of Mental Health; or Provided by the [facility] Office for People With Developmental Disabilities. If such information is present, then the following [facility] mandated warning applies: This information has been disclosed to you from confidential records which are protected by state law. State law prohibits you from making any further disclosure of this information without the specific written consent of the person to whom it pertains, or as otherwise permitted by law. Any unauthorized further disclosure in violation of state law may result in a fine or intermediate sentence or both. A general authorization for the release of medical or other information is NOT sufficient authorization for further disc losure. Allergies and Adverse Reactions Type Description Substance Reaction Status Data Source(s ) Propensity to adverse reactions Propensity to adverse reactions NKDA [facility] ([facility]) Allergy to substance Allergy to substance Allergy to substance ROBBIN ([facility]) Allergy to substance Allergy to substance Allergy to substance BOWIE ([facility]) Family History Family Member Name Family Member Gender Family Member Status Date o f Status Description Data Source(s) Unknown Unknown Problem MEDENT ([facility]) Encounters Encounter Providers Location Date Indications Data Source(s ) Moises Ash MD: [address] [place] [phone], Ph. Attender: Moises Ash MD [facility] Medical 08/02/2021 12:00:00 AM EDT ROBBIN ([facility]) Outpatient Attender: Delia Horton/Hilary/Norm/Santana ndl 07/05/2021 09:00:00 AM EDT MEDENT ([facility]) Moises Ash MD: [address] [place] [phone], Ph. Attender: Moises Ash MD [facility] Medical 06/28/2021 12:00:00 AM EDT ROBBIN ([facility]) Moises Ash MD: [address] [place] [phone], Ph. Attender: Moises Ash MD [facility] Medical 06/28/2021 12:00:00 AM EDT ROBBIN ([facility]) Outpatient Attender: JUSTYNA KENYON PA [facility] 06/19/2021 09:00:00 AM EDT MEDENT ([facility]) Outpatient Attender: JUSTYNA KENYON [facility] 06/07/2021 12:00:00 PM EDT MEDENT ([facility]) Outpatient Attender: JUSTYNA KENYON PA [facility] 03/26/2021 02:30:00 PM EDT MEDENT ([facility]) Outpatient Attender: JUSTYNA KENYON PA [facility] 03/19/2021 10:30:00 AM EDT MEDENT ([facility]) Outpatient Attender: JUSTYNA KENYON PA [facility] 02/20/2021 12:15:00 PM EDT MEDENT ([facility]) Outpatient Attender: Delia Horton/Hilary/Norm/Santana ndjudy 01/09/2021 10:30:00 AM EST MEDENT ([facility]) Outpatient Attender: JUSTYNA KENYON PA [facility] 12/04/2020 09:00:00 AM EST MEDENT ([facility]) Outpatient Attender: JUSTYNA DOHERTY [facility] 11/21/2020 08:30:00 AM EST MEDENT ([facility]) Outpatient Attender: JUSTYNA DOHERTY [facility] 10/30/2020 10:45:00 AM EST MEDENT ([facility]) Office Visit Attender: Stevo Horton/Hilary/Norm/Santana ndl 10/13/2020 08:30:00 AM EST MEDENT ([facility]) Outpatient Attender: Delia Horton/[place]/Norm/Santana ndl 10/03/2020 08:00:00 AM EST MEDENT ([facility]) Outpatient Admitter: Delia Yañez MDReferrer: Delia dos santos MD 09/13/2020 12:00:00 AM EDT Pulmonary fibrosis, unspecified [facility] Pulmonary fibrosis, unspecified Outpatient Attender: Delia Horton/[place]/Norm/Santana ndl 09/11/2020 03:00:00 PM EDT MEDENT ([facility]) Immunizations Vaccine Date Status Description Data Source(s) COVID-19, mRNA, LNP-S, PF, 100 mcg/0.5 mL dose 08/02/2021 11 :08:22 AM EDT completed 10.5 mL ROBBIN ([facility]) COVID-19 VACCINE Moderna 08/02/2021 12:00:00 AM EDT completed [facility] Vaccine Series Complete: YESThis Data wa s Submitted to [facility] Via [facility]. COVID-19, mRNA, LNP-S, PF, 100 mcg/0.5 mL dose 06/28/2021 09 :24:01 AM EDT completed 10.5 mL ROBBIN ([facility]) COVID-19, mRNA, LNP-S, PF, 100 mcg/0.5 mL dose 06/28/2021 09 :24:01 AM EDT completed 10.5 mL ROBBIN ([facility]) COVID-19 VACCINE Moderna 06/28/2021 12:00:00 AM EDT completed [facility] Vaccine Series Complete: NOThis Data was Submitted to [facility]. Medications Medication Brand Name Start Date Product Form Dose Route Admi nistrative Instructions Pharmacy Instructions Status Indications Reaction Description Data Source(s) 10 mg 10/04/2021 12:00:00 AM EDT tablet 30 TAKE ONE TABLET BY MOUTH AT BEDTIME MAXIMUM DAILY DOSE = 1 TAKE ONE TABLET BY MOUTH AT BEDTIME MAXI MUM DAILY DOSE = 1 SOLD: 10/05/2021 [facility] 60 mcg (15 mcg x 4)/0.5 mL 09/29/2021 12:00:00 AM EDT syringe 0 DIRECTED DIRECTED SOLD: 09/29/2021 [facility] atorvastatin 20 MG Oral Tablet ATORVASTATIN CALCIUM 09/28/2021 1 2:00:00 AM EDT tablet 90 TAKE ONE TABLET BY MOUTH AT BEDT RENNY TAKE ONE TABLET BY MOUTH AT BEDTIME SOLD: 09/28/2021 [facility] 90 mcg/actuation 09/25/2021 12:00:00 AM EDT HFA aerosol inha ler 18 INHALE TWO PUFFS BY MOUTH FOUR TIMES A DAY NEEDED INHALE TWO PUFFS BY MOUTH FOUR TIMES A DAY NEEDED SOLD: 09/28/2021 [facility] 10 mg 07/06/2021 12:00:00 AM EDT tablet 30 TAKE ONE TABLET BY MOUTH AT BEDTIME, MAXIMUM DAILY DOSE = 1 TAKE ONE TABLET BY MOUTH AT BEDTIME, MAX IMUM DAILY DOSE = 1 SOLD: 09/05/2021 [facility] 10 mg 07/06/2021 12:00:00 AM EDT tablet 30 TAKE ONE TABLET BY MOUTH AT BEDTIME, MAXIMUM DAILY DOSE = 1 TAKE ONE TABLET BY MOUTH AT BEDTIME, MAX IMUM DAILY DOSE = 1 SOLD: 08/05/2021 [facility] 10 mg 07/06/2021 12:00:00 AM EDT tablet 30 TAKE ONE TABLET BY MOUTH AT BEDTIME, MAXIMUM DAILY DOSE = 1 TAKE ONE TABLET BY MOUTH AT BEDTIME, MAX IMUM DAILY DOSE = 1 SOLD: 07/06/2021 [facility] Covid-19 vaccine, Unspecified 06/28/2021 12:00:00 AM EDT completed MEDENT ([facility], ) Medication administered onsite Cephalexin 500 MG Oral Capsule CEPHALEXIN 06/07/2021 12:00:00 AM EDT capsule 40 TAKE TWO CAPSULES BY MOUTH TWICE A DAY TAKE TWO CAPSULES BY MOUTH TWICE A DAY SOLD: 06/08/2021 [facility] Meclizine Hydrochloride 25 MG Oral Tablet MECLIZINE HCL 04/12/2021 12:00:00 AM EDT tablet 30 TAKE ONE TABLET BY MOUTH FOUR TIMES A DAY NEEDED FOR NAUSEA AND VERTIGO TAKE ONE TABLET BY MOUTH FOUR TIMES A DA Y NEEDED FOR NAUSEA AND VERTIGO SOLD: 04/12/2021 [facility] 10 mg 03/26/2021 12:00:00 AM EDT tablet 30 TAKE ONE TABLET BY MOUTH EVERY DAY AT BEDTIME MAXIMUM DAILY DOSE = 1 TAKE ONE TABLET BY MOUTH EVERY DAY AT BEDTIME MAXIMUM DAILY DOSE = 1 SOLD: 05/07/2021 [facility] 10 mg 03/26/2021 12:00:00 AM EDT tablet 30 TAKE ONE TABLET BY MOUTH EVERY DAY AT BEDTIME MAXIMUM DAILY DOSE = 1 TAKE ONE TABLET BY MOUTH EVERY DAY AT BEDTIME MAXIMUM DAILY DOSE = 1 SOLD: 03/26/2021 [facility] 10 mg 03/26/2021 12:00:00 AM EDT tablet 30 TAKE ONE TABLET BY MOUTH EVERY DAY AT BEDTIME MAXIMUM DAILY DOSE = 1 TAKE ONE TABLET BY MOUTH EVERY DAY AT BEDTIME MAXIMUM DAILY DOSE = 1 SOLD: 06/06/2021 [facility] 20 mg 03/26/2021 12:00:00 AM EDT tablet 30 TAKE ONE TABLET BY MOUTH EVERY DAY TAKE ONE TABLET BY MOUTH EVERY DAY SOLD: 03/26/2021 [facility] 145 mcg 03/19/2021 12:00:00 AM EDT capsule 30 TAKE ONE CAPSULE BY MOUTH EVERY DAY TAKE ONE CAPSULE BY MOUTH EVERY DAY SOLD: 03/19/2021 [facility] 300-30 mg 02/20/2021 12:00:00 AM EDT tablet 42 TAKE ONE TABLET BY MOUTH EVERY 4 HOURS NEEDED FOR PAIN MAXIMUM DAILY DOSE = 6 TAKE ONE TABLET BY MOUTH EVERY 4 HOURS NEEDED FOR PAIN MAXIMUM DAILY DOSE = 6 SOLD: 02/20/2021 [facility] Cyclobenzaprine hydrochloride 10 MG Oral Tablet CYCLOBENZAPR INE HCL 02/20/2021 12:00:00 AM EDT tablet 21 TAKE ONE TABLET BY MOUTH THREE TIMES A DAY NEEDED FOR BACK PAIN TAKE ONE TABLET BY MOUTH THREE TIMES A D AY NEEDED FOR BACK PAIN SOLD: 02/20/2021 [facility] Trazodone Hydrochloride 100 MG Oral Tablet TRAZODONE HCL 01/26/2021 12:00:00 AM EST tablet 90 TAKE ONE TABLET BY MOUTH AT BEDTIME TAKE ONE TABLET BY MOUTH AT BEDTIME SOLD: 02/02/2021 [facility] 14 mg/24 hr 01/09/2021 12:00:00 AM EST patch 24 hour 28 APPLY 1 PATCH TOPICALLY ONCE DAILY- APPLY TO DIFFERENT AREA OF THE SKIN FOR EACH APPLICATION APPLY 1 PATCH TOPICALLY ONCE DAILY- APPLY TO DIFFERENT AREA OF THE SKIN FOR EACH APPLICATION SOLD: 01/10/2021 [facility] 24 HR Nicotine 0.583 MG/HR Transdermal Patch Nicotine Transd ermal System Step 2 01/09/2021 12:00:00 AM EST completed MEDENT ([facility], ) Nicotine 4 MG Chewing Gum [Nicorette] Nicorette 01/09/2021 12:00:00 AM EST ORAL completed MEDENT ([facility], ) Trazodone Hydrochloride 300 MG Oral Tablet TRAZODONE HCL 01/05/2021 12:00:00 AM EST tablet 90 TAKE ONE TABLET BY MOUTH MAYI RY DAY AT BEDTIME TAKE ONE TABLET BY MOUTH EVERY DAY AT BEDTIME SOLD: 01/07/2021 [facility] 10 mg 12/29/2020 12:00:00 AM EST tablet 30 TAKE 1 TABLET BY MOUTH AT BEDTIME MAXIMUM DAILY DOSE = 1 TAKE 1 TABLET BY MOUTH AT BEDTIME MAXIMU M DAILY DOSE = 1 SOLD: 01/01/2021 [facility] Sulfamethoxazole 800 MG / Trimethoprim 160 MG Oral Tab let 800-160 mg SULFAMETHOXAZOLE/TRIMETHOPRIM 12/04/2020 12:00:00 AM EST tablet 20 TAKE ONE TABLET BY MOUTH TWICE A DAY TAKE ONE TABLET BY MOUTH TWICE A DAY SOLD: 12/04/2020 [facility] Cephalexin 500 MG Oral Capsule CEPHALEXIN 11/21/2020 12:00:00 AM EST capsule 40 TAKE TWO CAPSULES BY MOUTH TWICE A DAY TAKE TWO CAPSULES BY MOUTH TWICE A DAY SOLD: 11/21/2020 [facility] Trazodone Hydrochloride 100 MG Oral Tablet TRAZODONE HCL 11/10/2020 12:00:00 AM EST tablet 90 TAKE ONE TABLET BY MOUTH AT BEDTIME TAKE ONE TABLET BY MOUTH AT BEDTIME SOLD: 11/10/2020 [facility] 4 mg 10/04/2020 12:00:00 AM EST lozenge 216 TAKE ONE LOZENGE BY MOUTH EVERY 2 HOURS NEEDED TAKE ONE LOZENGE BY MOUTH EVERY 2 HOURS NEEDED SOLD : 10/05/2020 [facility] 150 mg 10/04/2020 12:00:00 AM EST tablet sustained-releas e 12 hr 60 TAKE ONE TABLET BY MOUTH EVERY DAY FOR FIRST 3 DAYS THEN INCREASE TO TWO TIMES A DAY AND MAINTAIN THAT DOSE TAKE ONE TABLET BY MOUTH EVERY DAY FOR F IRST 3 DAYS THEN INCREASE TO TWO TIMES A DAY AND MAINTAIN THAT DOSE SOLD: 10/05/2020 [facility] 12 HR Bupropion Hydrochloride 150 MG Extended Release Oral Tablet Bupropion Hydrochloride ER (SR) 10/03/2020 12:00:00 AM EST ORAL a ctive MEDENT ([facility], ) Nicotine 4 MG Oral Lozenge Eq Nicotine 10/03/2020 12:00:00 AM EST ORAL active MEDENT ([facility], ) 300-30 mg 09/29/2020 12:00:00 AM EDT tablet 42 TAKE ONE TABLET BY MOUTH EVERY 4 HOURS NEEDED FOR PAIN MAXIMUM DAILY DOSE = 6 TAKE ONE TABLET BY MOUTH EVERY 4 HOURS NEEDED FOR PAIN MAXIMUM DAILY DOSE = 6 SOLD: 09/29/2020 [facility] 100 mg 05/15/2020 12:00:00 AM EDT tablet 30 TAKE ONE TABLET BY MOUTH EVERY DAY AT BEDTIME TAKE ONE TABLET BY MOUTH EVERY DAY AT BEDTIME SOLD: 10/12/2020 [facility] Trazodone Hydrochloride 100 MG Oral Tablet TRAZODONE HCL 05/15/2020 12:00:00 AM EDT tablet 30 TAKE ONE TABLET BY MOUTH MAYI DAY AT BEDTIME TAKE ONE TABLET BY MOUTH EVERY DAY AT BEDTIME SOLD: 09/10/2020 [facility] Insurance Providers Payer name Policy type / Coverage type Policy ID Covered democrat ID Covered democrat's relationship to mabry Policy Mabry Plan Information EXCELLUS C [id number] Spouse [id number] [place]/307 [id number] [id number] [place]/307 [id number] BCBS/Blue Card Commercial [id number] Family Dependent [id number] BCBS/Blue Card Commercial [id number] Self [id number] [facility] [id number] [place] P[place]/307 [id number] EXCELLUS BCBS B [id number] P [id number] BCBS [facility] 332/834 [id number] SELF PAY UNAVAILABLE SP UNAVAILA BLE EXCELLUS BCBS B [id number] P [id number] [id number] EXCELLUS BCBS B [id number] P [id number] Problems, Conditions, and Diagnoses Code Display Name Description Problem Type Effective Dates Data Source(s) J84.10 Pulmonary fibrosis, unspecified Pulmonary fibros is, unspecified Diagnosis 09/13/2020 12:23:00 PM [facility] Surgeries/Procedures Procedure Description Date Indications Data Source(s) Spirometry 07/05/2021 12:00:00 AM CYNTHIA RHODES ([facility], ) OFFICE OUTPATIENT VISIT 25 MINUTES 07/05/2021 12:00:00 AM EDT MEDENT ([facility], ) TOBACCO USE CESSATION INTERMEDIATE 3-10 MINUTES 2020 12:00:00 AM EDT MEDENT ([facility]) OFFICE OUTPATIENT VISIT 10 MINUTES 06/19/2021 12:00:00 AM EDT MEDMELANIE ([facility]) OFFICE OUTPATIENT VISIT 15 MINUTES 06/07/2021 12:00:00 AM EDT MEDMELANIE ([facility]) OFFICE OUTPATIENT VISIT 15 MINUTES 03/26/2021 12:00:00 AM EDT [facility] ([facility]) OFFICE OUTPATIENT VISIT 15 MINUTES 03/19/2021 12:00:00 AM EDT [facility] ([facility]) OFFICE OUTPATIENT VISIT 15 MINUTES 02/20/2021 12:00:00 AM EDT MEDMELANIE ([facility]) OFFICE OUTPATIENT VISIT 25 MINUTES 01/09/2021 12:00:00 AM EST MEDENT ([facility], ) TOBACCO USE CESSATION INTERMEDIATE 3-10 MINUTES 2020 12:00:00 AM EST MEDENT ([facility]) Bronchospasm Evaluation 12/26/2020 12:00:00 AM EST MEDENT ([facility]) Plethysmography Determination Lung Volumes & Per Airway Resi st 12/26/2020 12:00:00 AM EST [facility] DIFFUSING CAPACITY 12/26/2020 12:00:00 AM EST MEDENT ([facility]) Results ID Date Data Source [id number] 07/05/2021 08:42:00 AM EDT MEDENT ([facility]) Name Value Range Interpretation Code Description Data Cayla rce(s) Supporting Document(s) PDFReport Laboratory test result MEDENT ([facility]) FVC-Pred 3.16 L MEDENT ([facility]) FVC-Pre 2.62 L MEDENT ([facility]) FVC-LLN 2.48 L MEDENT ([facility]) FVC-%Pred-Pre 82 L MEDENT ([facility]) Fev1-Pred 2.43 L MEDENT ([facility]) Fev1-Pre 1.74 L MEDENT ([facility]) Fev1-%Pred-Pre 71 L MEDENT ([facility]) Fev1-LLN 1.85 L MEDENT ([facility]) Fev6-Pred 3.04 L MEDENT ([facility]) Fev6-Pre 2.62 L MEDENT ([facility]) Fev6-%Pred-Pre 86 L MEDENT ([facility]) Fev6-LLN 2.37 L MEDENT ([facility]) [id number] 77 % MEDENT ([facility]) [id number] 66 % MEDENT ([facility]) [id number]-%Pred-Pre 85 % [facility] ([facility]) Wax1jew-ZOH 68 % [facility] ([facility]) Rvz4zcm-Mdhv 96 % [facility] ([facility]) Mqp7rib-Uio 100 % [facility] ([facility]) Wve8wum-%Pred-Pre 103 % [facility] ([facility]) FEFMax-Pre 4.25 L/E/sec [facility] ([facility]) FEFMax-Pred 6.04 L/E/sec [facility] ([facility]) FEFMax-LLN 4.36 L/E/sec [facility] ([facility]) FEFMax-%Pred-Pre 70 L/E/sec [facility] ([facility]) Kmk5072-Pemh 2.19 L/E/sec [facility] ([facility]) Mhv0814-Dkx 1.02 L/E/sec [facility] ([facility]) Bdx8783-%Pred-Pre 46 L/E/sec [facility] ([facility]) Kii1079-KTG 0.97 L/E/sec [facility] ([facility]) Nbk5uuj1-Zhrr 80 % [facility] ([facility]) ExpTime-Pre 5.07 sec [facility] ([facility]) Ebx5fty4-Ukx 66 % [facility] ([facility]) Mjz9asp2-%Pred-Pre 82 % [facility] ([facility]) Ceq8qbh0-ZDN 71 % [facility] ([facility]) ID Date Data Source [id number] 01/04/2021 01:18:00 PM EST [facility] ([facility]ixto Brown MD) Name Value Range Interpretation Code Description Data Cayla rce(s) Supporting Document(s) Laboratory test finding (navigational concept) 116 mg/dL 7 0-100 Above high normal [facility] ([facility]ixto Brown MD) Laboratory test finding (navigational concept) 16 mg/dL 7 -18 Normal (applies to non-numeric results) [facility] (Calixto Brown MD) Laboratory test finding (navigational concept) 0.84 mg/dL 0 .55-1.30 Normal (applies to non-numeric results) [facility] (Calixto Brown MD) Laboratory test finding (navigational concept) 140 meq/L 1 36-145 Normal (applies to non-numeric results) [facility] (Calixto Brown MD) Laboratory test finding (navigational concept) Laboratory test r esult Normal (applies to non-numeric results) [facility] (Calixto Brown MD) <content>Units are mL/min/1.73 m2</content>
<content></content>
<content>Chronic Kidney Disease Staging per NKF:</content>
<content></content>
<content>Stage I & II GFR >=60 Normal to Mildly Decreased</content>
<content>Stage III GFR 30- 59 Moderately Decreased</content>
<content>Stage IV GFR 15-29 Severely Decreased</content>
<content>Stage V GFR <15 Very Little GFR Left</content>
<content>ESRD GFR <15 on HAND MARKER</content>
<content></content> Laboratory test finding (navigational concept) 4.4 meq/L 3 .5-5.1 Normal (applies to non-numeric results) [facility] (Calixto Brown MD) Laboratory test finding (navigational concept) 26 meq/L 2 1-32 Normal (applies to non-numeric results) [facility] (Calixto Brown MD) Laboratory test finding (navigational concept) 108 meq/L 9 8-107 Above high normal [facility] (Calixto Brown MD) Laboratory test finding (navigational concept) 6 meq/L 8-16 Below low normal HANSENT (Calixto Brown MD) Laboratory test finding (navigational concept) 9.9 mg/dL 8 .8-10.2 Normal (applies to non-numeric results) ALESSANDRA (Calixto Brwon MD) ID Date Data Source [id number] 01/04/2021 01:18:00 PM EST [facility] (Calixto Brown MD) Name Value Range Interpretation Code Description Data Cayla rce(s) Supporting Document(s) Laboratory test finding (navigational concept) 7.7 10 4 .0-10.0 Normal (applies to non-numeric results) [facility] (Calixto Brown MD) Laboratory test finding (navigational concept) 5.02 10 4 .00-5.40 Normal (applies to non-numeric results) [facility] (Calixto Brown MD) Laboratory test finding (navigational concept) 15.8 g/dL 1 2.0-15.5 Above high normal [facility] (Calixto Brown MD) Laboratory test finding (navigational concept) 46.2 % 3 6.0-47.0 Normal (applies to non-numeric results) [facility] (Calixto Brown MD) Laboratory test finding (navigational concept) 92.0 fl 8 0.0-96.0 Normal (applies to non-numeric results) [facility] (Calixto Brown MD) Laboratory test finding (navigational concept) 31.5 pg 2 7.0-33.0 Normal (applies to non-numeric results) [facility] (Calixto Brown MD) Laboratory test finding (navigational concept) 34.2 g/dL 3 2.0-36.5 Normal (applies to non-numeric results) [facility] (Calixto Brown MD) Laboratory test finding (navigational concept) 12.2 % 1 1.5-14.5 Normal (applies to non-numeric results) [facility] (Calixto Brown MD) Laboratory test finding (navigational concept) 246 10 1 50-450 Normal (applies to non-numeric results) [facility] (Calixto Brown MD) Laboratory test finding (navigational concept) 0.0 % 0 -0 Normal (applies to non- numeric results) [facility] (Calixto Brown MD) ID Date Data Source [id number] 10/30/2020 10:25:00 AM EST [facility] Name Value Range Interpretation Code Description Data Cayla rce(s) Supporting Document(s) SARS-CoV-2 (COVID-19) [facility] This lab was ordered by [employer] [facility] and reported by [employer]. ID Date Data Source [id number] 09/25/2020 11:50:00 AM EDT [facility] (Calixto Brown MD) Name Value Range Interpretation Code Description Data Cayla rce(s) Supporting Document(s) Laboratory test finding (navigational concept) 1.77 0 .4-2.0 Normal (applies to non-numeric results) [facility] (Calixto Brown MD) ID Date Data Source [id number] 09/13/2020 12:23:00 PM EDT [facility] ([facility], ) Name Value Range Interpretation Code Description Data Cayla rce(s) Supporting Document(s) Surgical Pathology Consult Laboratory test result [facility] ([facility], ) will discuss at follow-up ID Date Data Source [id number] 09/19/2020 10:06:00 AM EDT [facility] Surgical Pathology Report See Addendum B Sushma: PANCHITO ROSSN: [id number] Number: [id number] Date: 09/13/2020 00:00Received Date: 09/13/2020 12:24Physician(s): DELIA YAÑEZ MD HAGHIR, SHAHANDEH F,MDSpecimen(s) ReceivedA: Material received for consultation, OEZClinical HistoryThis 64-year-old woman is presenting with history of T2N0 rectosigmoidadenocarcinoma, 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 The patient ispresenting with innumerable lung nodules that were suspicious formetastatic disease. PET/CT scans show no other activity except for somemediastinal lymph nodes. MRI of brain is negative. Open lung biopsy wasperformed to establish the diagnosis. Addendum 09/22/2020 S100 and CD1a are positive in Langerhans cell aggregates, supporting thediagnosis. Addendum Electronically Signed By: Lisa Caban M.D. 09/22/2020 DiagnosisLUNG, RIGHT MIDDLE AND UPPER LOBE, WEDGE BIOPSY: PULMONARY LANGERHANSCELL HISTIOCYTOSIS. (See Microscopic Descript ion). /pwsElectronically Signed By Lisa Tracy M.D., Attending Egncxiznjdq37/20/2020 10:06:46 Gross Description[facility] [place], [place] are 5 H and Estained slides and 5 paraffin blocks labeled [id number] with thecorresponding pathology report./jrsMicroscopic DescriptionSections from the upper and middle lobe show nodular areas of interstitialinfiltration that contain variable amounts of cellular infiltrate andfibrosis. Much of the fibrosis is active with fibroblasts, although thereare also areas of collagen deposition. Some of the nodules have a stellateshape and tend to be present in peribronchiolar parenchyma, althoughothers appear to obliterate the lung parenchyma. Where cellularitypredominates, especially at the periphery of the nodules, the cells havefolded nuclei and abundant cytoplasm, suggestive of Langerhans cells. Thecondition, therefore, is Langerhans cell histiocytosis. Additionally,there are large numbers of pigmented macrophages within airspaces that areindicative of respiratory (smokers') bronchiolitis. This lesion alwaysaccompanies Langerhans cell histiocytosis, because all such patients aresmokers. Also present in the upper lobe are emphysematous changes and anarea of subpleural fibroelastosis characteristic of so-called pulmonaryapical cap which is a non-specific parenchymal scarring that occurs in theupper lobes of the lung and has no clinical significance. There is noevidence of malignancy.Thank you for letting me see this difficult case in consultation.This report may include one or more immunohistochemical stain results thatuse analyte specific reagents. All positive and negative controls havebeen reviewed by the attending pathologist and are satisfactory. The testswere developed and their performance characteristics determined by [facility] Pathology department. They have not been cleared or approved by the USFood and Drug Administration. The FDA has determined that such clearanceor approval is not necessary. Name Value Range Interpretation Code Description Data Cayla rce(s) Supporting Document(s) Procedure Social History Code Duration Value Status Description Data Source(s ) 07/05/2021 12:00:00 AM EDT Smokes 1 Pack A Day completed Smokes 1 Pack A Day [facility] ([facility], ) Vital Signs ID Date Data Source UNK Name Value Range Interpretation Code Description Data Source(s) Body height 63 [in_i] 63 [in_i] [facility] ([facility]ixto Brown MD) 5'3" Body weight 143.12 [lb_av] 143.12 [lb_av] [facility] T (Calixto Brown MD) Body mass index (BMI) [Ratio] 25.4 kg/m2 25.4 k g/m2 [facility] (Calixto Brown MD) Body temperature 97.7 [degF] 97.7 [degF] [facility] (Calixto Brown MD) Systolic blood pressure 106 mm[Hg] 106 mm[Hg] M EDENT (Calixto Brown MD) Diastolic blood pressure 75 mm[Hg] 75 mm[Hg] [facility] (Calixto Brown MD) Heart rate 64 /min 64 /min [facility] (Calixto Brown MD) Oxygen saturation in Arterial blood by Pulse oximetry 96 % 96 % [facility] (Calixto Brown MD) Respiratory rate 16 /min 16 /min [facility] ( Calixto Brown MD) Systolic blood pressure 116 mm[Hg] 116 mm[Hg] [facility] Diastolic blood pressure 68 mm[Hg] 68 mm[Hg] [facility] ([facility]) Heart rate 77 /min 77 /min [facility] ([facility]) Oxygen saturation in Arterial blood by Pulse oximetry 98 % 98 % [facility] Body height 63.5 [in_i] 63.5 [in_i] [facility] ([facility]) 5'3.50" Body weight 137.38 [lb_av] 137.38 [lb_av] MED[facility] T ([facility]) Body mass index (BMI) [Ratio] 24.0 kg/m2 24.0 k g/m2 [facility] ([facility]) [place] body weight 115 [lb_av] 115 [lb_av] [facility] T ([facility]) Body weight 62.313 kg 62.313 kg [facility] ([facility]) Body surface area Derived from formula 1.66 m2 1.66 m2 [facility] ([facility]) Body height 63 [in_i] 63 [in_i] [facility] (Calixto Brown MD) 5'3" Body weight 136.38 [lb_av] 136.38 [lb_av] MED[facility] T (Calixto Brown MD) Body mass index (BMI) [Ratio] 24.2 kg/m2 24.2 k g/m2 [facility] ([facility]ixto Brown MD) Body temperature 97.7 [degF] 97.7 [degF] [facility] ([facility]ixto Brown MD) Systolic blood pressure 119 mm[Hg] 119 mm[Hg] M EDENT (Calixto Brown MD) Diastolic blood pressure 78 mm[Hg] 78 mm[Hg] [facility] ([facility]ixto Brown MD) Heart rate 77 /min 77 /min [facility] ([facility]ixto Brown MD) Oxygen saturation in Arterial blood by Pulse oximetry 97 % 97 % [facility] (Calixto Brown MD) Respiratory rate 16 /min 16 /min [facility] ( Calixto Brown MD) Systolic blood pressure 116 mm[Hg] 116 mm[Hg] M [facility] ([facility]) Diastolic blood pressure 72 mm[Hg] 72 mm[Hg] [facility] ([facility]) Heart rate 69 /min 69 /min [facility] ([facility]) Oxygen saturation in Arterial blood by Pulse oximetry 100 % 100 % [facility] ([facility]) Body temperature 96.3 [degF] 96.3 [degF] [facility] ([facility]) Body height 63.5 [in_i] 63.5 [in_i] [facility] ([facility]) 5'3.50" Body weight 142.00 [lb_av] 142.00 [lb_av] [facility] Body mass index (BMI) [Ratio] 24.8 kg/m2 24.8 k g/m2 [facility] ([facility]) [place] body weight 115 [lb_av] 115 [lb_av] [facility] T ([facility]) Body weight 64.411 kg 64.411 kg [facility] ([facility]) Body surface area Derived from formula 1.68 m2 1.68 m2 [facility] ([facility]) Body surface area Derived from formula 1.68 m2 1.68 m2 [facility] ([facility]) Systolic blood pressure 110 mm[Hg] 110 mm[Hg] [facility] Body weight 64.638 kg 64.638 kg [facility] ([facility]) Diastolic blood pressure 62 mm[Hg] 62 mm[Hg] [facility] ([facility]) Body height 63.5 [in_i] 63.5 [in_i] [facility] ([facility]) 5'3.50" Body weight 142.50 [lb_av] 142.50 [lb_av] [facility] T ([facility]) Body mass index (BMI) [Ratio] 24.8 kg/m2 24.8 k g/m2 [facility] ([facility]) [place] body weight 115 [lb_av] 115 [lb_av] [facility] T ([facility]) Diastolic blood pressure 80 mm[Hg] 80 mm[Hg] [facility] ([facility]) Heart rate 66 /min 66 /min [facility] ([facility]) Oxygen saturation in Arterial blood by Pulse oximetry 98 % 98 % [facility] ([facility]) Body temperature 98.4 [degF] 98.4 [degF] [facility] ([facility]) Body height 63.5 [in_i] 63.5 [in_i] [facility] ([facility]) 5'3.50" Body mass index (BMI) [Ratio] 25.8 kg/m2 25.8 k g/m2 [facility] ([facility]) [place] body weight 115 [lb_av] 115 [lb_av] [facility] T ([facility]) Body weight 67.246 kg 67.246 kg [facility] ([facility]) Body surface area Derived from formula 1.71 m2 1.71 m2 [facility] ([facility]) Systolic blood pressure 132 mm[Hg] 132 mm[Hg] [facility] Body weight 148.25 [lb_av] 148.25 [lb_av] [facility] T ([facility]) Systolic blood pressure 104 mm[Hg] 104 mm[Hg] [facility] Diastolic blood pressure 66 mm[Hg] 66 mm[Hg] [facility] ([facility]) Heart rate 78 /min 78 /min [facility] ([facility]) Oxygen saturation in Arterial blood by Pulse oximetry 98 % 98 % [facility] ([facility]) Body temperature 96.3 [degF] 96.3 [degF] [facility] ([facility]) Body height 63.5 [in_i] 63.5 [in_i] [facility] ([facility]) 5'3.50" Body weight 149.25 [lb_av] 149.25 [lb_av] [facility] T ([facility]) Body mass index (BMI) [Ratio] 26.0 kg/m2 26.0 k g/m2 [facility] ([facility]) [place] body weight 115 [lb_av] 115 [lb_av] [facility] T ([facility]) Body weight 67.700 kg 67.700 kg [facility] ([facility], )
--- OUTSIDE RECORDS SUMMARY | 2021-10-19 13:16 | CCD | Continuity of Care Document ---
Author Author Radha KENYON Organization Unknown Address [address] [place] [address] Phone [phone] Care Team Providers Care Mill Laborer Name Role Phone JUSTYNA KENYON AUTM [phone] Social History Type Date Description Comments Sex Unknown ETOH Use Has consumed alcohol in the past Tobacco Use Start: Unknown Patient is a current smoker, smo kes every day Recreational Drug Use Current Drug User Recreational Drug Use Current marijuana use Allergies and adverse reactions Active Allergies Criticality Reaction | Severity Comments Date Oxycodone Unable to assess criticality 09/17/2021 Propoxyphene Unable to assess criticality 09/25/2021 Percocet Unable to assess criticality 09/25/2021 Inactive Allergies NKDA Unable to assess criticality 09/17/2021 Medications Active Medications SIG Qnty Indications Ordering Provide r Date Zolpidem Tartrate 10mg Tablets Take One Tablet By Mouth AT Bedtime Maximum Daily Dose 1 Unknown Vital Signs Date Vital Result Comment 09/25/2021 10:59am Height 63 inches 5'3" Weight 143.12 lb BMI (Body Mass Index) 25.4 kg/m2 Body Temperature 97.7 F BP Systolic 106 mmHg BP Diastolic 75 mmHg Heart Rate 64 /min O2 % BldC Oximetry 96 % Respiratory Rate 16 /min 06/19/2021 11:52am Height 63 inches 5'3" Weight 136.38 lb BMI (Body Mass Index) 24.2 kg/m2 Body Temperature 97.7 F BP Systolic 119 mmHg BP Diastolic 78 mmHg Heart Rate 77 /min O2 % BldC Oximetry 97 % Respiratory Rate 16 /min Procedures Date Code Description Status 06/19/2021 61025 Office/Outpatient Established SF MDM 10-19 Min Completed 06/07/2021 17554 Office/Outpatient Established Lo w MDM 20-29 Min Completed Encounters Type Date Location Provider Dx Diagnosis Office Visit 06/19/2021 9:00a [facility] CHAS Tsai N61.0 Mastitis without abscess G47.00 Insomnia, unspecified F41.9 Anxiety disorder, unspecifie d Office Visit 06/07/2021 12:00p [facility] CHAS Tsai N61.0 Mastitis without abscess G47.00 Insomnia, unspecified M54.5 Low back pain F41.9 Anxiety disorder, unspecifie d Assessments Date Code Description Provider 06/19/2021 N61.0 Mastitis without abscess Koderi CHAS De Santiago 06/19/2021 G47.00 Insomnia, unspecified CHAS Fajardo 06/19/2021 F41.9 Anxiety disorder, unspecified CHAS Jackson 06/07/2021 N61.0 Mastitis without abscess Koderi CHAS De Santiago 06/07/2021 G47.00 Insomnia, unspecified CHAS Fajardo 06/07/2021 M54.5 Low back pain [facility] 06/07/2021 F41.9 Anxiety disorder, unspecified CHAS Jackson Plan of Treatment Future Appointment(s):* 12/26/2021 9:15 am - CHAS Encinas at [facility] Referrals Refer to Reason for Referral Status Appt Date [facility] Neurology PATIENT WITH C/O ONGOING VE RTIGO AND NAUSEA. PLEASE EVAL AND TREAT. Sent [address] [place] [address] [phone]
--- OUTSIDE RECORDS SUMMARY | 2021-10-19 13:16 | CCD ---
Author Organization Unknown Address [address] [place] [address] Phone [phone] Care Team Providers Care Processing Inspector Name Role Phone 238 Covid Vaccine Nurse Unavailable Unavailable Allergies None recorded. Medications None recorded. Problems None recorded. Procedures None recorded. Results Lab Results None recorded. Past Encounters 08/02/2021 Administration of SARS-CoV-2 Antigen Vaccine Moises Ash MD: [address] [place] [address], Ph. 06/28/2021 Administration of SARS-CoV-2 Antigen Vaccine Moises Ash MD: [address] [place] [address], Ph. Social History None recorded. Vaccine List Vaccine Type COVID-19, mRNA, LNP-S, PF, 100 mcg/0.5 m L dose 10.5 mL 10.5 mL Plan of Care Reminders Provider Appointments None recorded. Lab None recorded. Referral None recorded. Procedures None recorded. Surgeries None recorded. Imaging None recorded. Vitals None recorded.
[2021-10-19 13:39] LABS: BASO % 0.3 % (0.0-1.0); EOS # 0.1 10^3/uL (0.0-0.5); EOS % 1.5 % (0.0-3.0); HEMATOCRIT 42.5 % (36.0-47.0); HEMOGLOBIN 14.6 g/dl (12.0-15.5); LYMPH # 2.9 10^3/uL (1.5-5.0); LYMPH % 33.4 % (24.0-44.0); MEAN CORPUSCULAR HEMOGLOBIN 32.2 pg (27.0-33.0); MEAN CORPUSCULAR HGB CONC 34.4 g/dl (32.0-36.5); MEAN CORPUSCULAR VOLUME 93.6 fl (80.0-96.0); MONO # 0.5 10^3/uL (0.0-0.8); MONO % 5.5 % (2.0-8.0); NEUTROPHILS # 5.2 10^3/uL (1.5-8.5); NEUTROPHILS % 58.7 % (36.0-66.0); PLATELET COUNT, AUTOMATED 307 10^3/uL (150-450); RED BLOOD COUNT 4.54 10^6/uL (4.00-5.40); WHITE BLOOD COUNT 8.8 10^3/uL (4.0-10.0)
[2021-10-19 14:04] LABS: ALBUMIN 3.7 GM/DL (3.2-5.2); ALT/SGPT 17 U/L (12-78); BILIRUBIN,DIRECT < 0.1 MG/DL (0.0-0.2); BILIRUBIN,TOTAL 0.5 MG/DL (0.2-1.0); BLOOD UREA NITROGEN 17 MG/DL (7-18); CALCIUM LEVEL 9.7 MG/DL (8.8-10.2); CARBON DIOXIDE LEVEL 29 MEQ/L (21-32); CHLORIDE LEVEL 106 MEQ/L (98-107); CREATININE FOR GFR 0.95 MG/DL (0.55-1.30); GLOMERULAR FILTRATION RATE > 60.0 (>45); GLUCOSE, FASTING 103 MG/DL (70-100); LIPASE 45 U/L (73-393); POTASSIUM SERUM 4.5 MEQ/L (3.5-5.1); SODIUM LEVEL 140 MEQ/L (136-145); TOTAL PROTEIN 7.3 GM/DL (6.4-8.2)
[2021-10-19 14:11] LABS: CK-MB VALUE MASS < 1.0 NG/ML (<3.6); CPK CREATINE PHOSPHOKINASE 63 U/L (26-192); MB/CK RELATIVE INDEX 1.59 (< OR =4); TROPONIN I < 0.02 NG/ML (< 0.10)
--- OUTSIDE RECORDS SUMMARY | 2021-10-19 14:59 | CCD ---
Author Author [facility] Organization [facility] Address Unknown Phone Unavailable Care Team Providers Care Short Haul Driver Name Role Phone Mali Ash MD Unavailable [...] Unavailable Unavailable Mali Ash MD Unavailable Unavailable [place], Luiza Stevo GLASS TECHNOLOGIST Unavailable Unavailable [place], Luiza Stevo GLASS TECHNOLOGIST Unavailable Unavailable Anup, Luiza Stevo GLASS TECHNOLOGIST Unavailable Unavailable Anup, Luiza Stevo GLASS TECHNOLOGIST Unavailable Unavailable [place], Luiza Stevo GLASS TECHNOLOGIST Unavailable Unavailable [place], Luiza Stevo GLASS TECHNOLOGIST Unavailable Unavailable Anup, Luiza Stevo GLASS TECHNOLOGIST Unavailable Unavailable [place], Luiza Stevo GLASS TECHNOLOGIST Unavailable Unavailable [place], Luiza Stevo GLASS TECHNOLOGIST Unavailable Unavailable [place], Luiza Stevo GLASS TECHNOLOGIST Unavailable Unavailable [place], Luiza Stevo GLASS TECHNOLOGIST Unavailable Unavailable Anup, Luiza Stevo GLASS TECHNOLOGIST Unavailable Unavailable [place], Luiza Stevo GLASS TECHNOLOGIST Unavailable Unavailable [place], Luiza Stevo GLASS TECHNOLOGIST Unavailable Unavailable Delia Yañez MD Unavailable Unavailable Delia Yañez MD Unavailable Unavailable Delia Yañez MD Unavailable Unavailable Delia Yñaez MD Unavailable Unavailable Delia Yañez MD Unavailable [...] is protected by Article 27-F of the [facility] Public Health law. If you continue you may have access to information: Regarding HIV / AIDS; Provided by facilities licensed or operated by the [facility] Office of Mental Health; or Provided by the [facility] Office for People With Developmental Disabilities. If such information is present, then the following [facility] mandated warning applies: This information has [...] law may result in a fine or fpc sentence or both. A general authorization for the release of medical or other information is NOT sufficient authorization for further disc losure. Allergies and Adverse Reactions Type Description Substance Reaction Status Data Source(s ) Propensity to adverse reactions Propensity to adverse reactions NKDA MEDENT ([facility]) Allergy to substance Allergy to substance Allergy to substance ROBBIN ([facility]) Allergy to substance Allergy to substance Allergy to substance BAISDEN ([facility]) Family History Family Member Name Family Member Gender Family Member Status Date o f Status Description Data Source(s) Unknown Unknown Problem MEDENT ([facility]) Encounters Encounter Providers Location Date Indications Data Source(s ) Moises Ash MD: [address] [place] [address], Ph. Attender: Moises Ash MD [facility] Medical 08/02/2021 12:00:00 AM EDT ROBBIN ([facility]) Outpatient Attender: Delia Horton/Hilary/Norm/Santana ndl 07/05/2021 09:00:00 AM EDT MEDENT ([facility]) Moises Ash MD: [address] [place] [address], Ph. Attender: Moises Ash MD [facility] Medical 06/28/2021 12:00:00 AM EDT ROBBIN ([facility]) Moises Ash MD: [address] [place] [phone], Ph. Attender: Moises Ash MD [facility] Medical 06/28/2021 12:00:00 AM EDT ROBBIN ([facility] [...] Horton/Hilary/Norm/Santana ndjudy 01/09/2021 10:30:00 AM EST MEDENT ([facility]) Outpatient Attender: JUSTYNA KENYON PA [facility] 12/04/2020 09:00:00 AM EST MEDENT ([facility]) Outpatient Attender: JUSTYNA DOHERTY [facility] 11/21/2020 08:30:00 AM EST MEDENT ([facility]) Outpatient Attender: JUSTYNA DOHERTY [facility] 10/30/2020 10:45:00 AM EST MEDENT ([facility]) Office Visit Attender: Stevo Horton/Hilary/Norm/Santana ndl 10/13/2020 08:30:00 AM EST MEDENT ([facility]) Outpatient Attender: Delia Horton/Muse/Norm/Santana ndl 10/03/2020 08:00:00 AM EST MEDENT ([facility]) Outpatient Admitter: Delia Yañez MDReferrer: Delia dos santos MD 09/13/2020 12:00:00 AM EDT Pulmonary fibrosis, unspecified [facility] Pulmonary fibrosis, unspecified Outpatient Attender: Delia Horton/Muse/Norm/Santana ndl 09/11/2020 03:00:00 PM EDT MEDENT ([facility]) Immunizations Vaccine Date Status Description Data Source(s) COVID-19, mRNA, LNP-S, PF, 100 mcg/0.5 mL dose 08/02/2021 11 :08:22 AM EDT completed 10.5 mL ROBBIN ([facility]) COVID-19 VACCINE Moderna 08/02/2021 12:00:00 AM EDT completed [place] Vaccine Series Complete: YESThis Data wa s Submitted to [facility] Via 5 examples. COVID-19, mRNA, LNP-S, PF, 100 mcg/0.5 mL dose 06/28/2021 09 :24:01 AM EDT completed 10.5 mL ROBBIN ([facility]) COVID-19, mRNA, LNP-S, PF, 100 mcg/0.5 mL dose 06/28/2021 09 :24:01 AM EDT completed 10.5 mL ROBBIN ([facility]) COVID-19 VACCINE Moderna 06/28/2021 12:00:00 AM EDT completed [place] Vaccine Series Complete: NOThis Data was Submitted to [facility] Via 5 examples. Medications Medication Brand Name Start Date Product [...] Unspecified 06/28/2021 12:00:00 AM EDT completed MEDENT ([facility], ) Medication administered onsite Cephalexin 500 MG [...] 2 01/09/2021 12:00:00 AM EST completed MEDENT ([facility], ) Nicotine 4 MG Chewing Gum [Nicorette] Nicorette 01/09/2021 12:00:00 AM EST ORAL completed MEDENT ([facility], ) Trazodone Hydrochloride 300 MG Oral Tablet [...] 12:00:00 AM EST ORAL a ctive MEDENT ([facility], ) Nicotine 4 MG Oral Lozenge Eq Nicotine 10/03/2020 12:00:00 AM EST ORAL active MEDENT ([facility], ) 300-30 mg 09/29/2020 12:00:00 AM EDT tablet 42 TAKE ONE TABLET BY MOUTH EVERY 4 HOURS NEEDED FOR PAIN MAXIMUM DAILY DOSE = 6 TAKE ONE TABLET BY MOUTH EVERY 4 HOURS NEEDED FOR PAIN MAXIMUM DAILY DOSE = 6 SOLD: 09/29/2020 [facility] 100 mg 05/15/2020 12:00:00 AM EDT tablet 30 TAKE ONE TABLET BY MOUTH EVERY DAY AT BEDTIME TAKE ONE TABLET BY MOUTH EVERY DAY AT BEDTIME SOLD: 10/12/2020 [facility] Trazodone Hydrochloride 100 MG Oral Tablet TRAZODONE HCL 05/15/2020 12:00:00 AM EDT tablet 30 TAKE ONE TABLET BY MOUTH MAYI DAY AT BEDTIME TAKE ONE TABLET BY MOUTH EVERY DAY AT BEDTIME SOLD: 09/10/2020 [facility] Insurance Providers Payer name Policy type / Coverage type Policy ID Covered republican ID Covered republican's relationship to mabry Policy Mabry Plan Information EXCELLUS C [id number] Spouse [id number] [place]/307 [id number] [id number] [place]/307 [id number] BCBS/Blue Card Commercial [id number] Family Dependent [id number] BCBS/Blue Card Commercial [id number] Self [id number] [facility]/POS [id number] 1 [id number] [place] 302/307 [id number] [id number] EXCELLUS BCBS B [id number] P GLX [id number] BCBS [facility] 332/834 [id number] [id number] PAY UNAVAILABLE SP UNAVAILA BLE EXCELLUS BCBS B [id number] P [id number] [id number] EXCELLUS BCBS B [id number] P [id number] [id number] Problems, Conditions, and Diagnoses Code Display Name Description Problem Type Effective Dates Data Source(s) J84.10 Pulmonary fibrosis, unspecified Pulmonary fibros is, unspecified Diagnosis 09/13/2020 12:23:00 PM [facility] Surgeries/Procedures Procedure Description Date Indications Data Source(s) Spirometry 07/05/2021 12:00:00 AM CYNTHIA RHODES ([facility], ) OFFICE OUTPATIENT VISIT 25 MINUTES 07/05/2021 12:00:00 AM EDT MEDENT ([facility], ) TOBACCO USE CESSATION INTERMEDIATE 3-10 MINUTES 2020 12:00:00 AM EDT MEDENT ([facility]) OFFICE OUTPATIENT VISIT 10 MINUTES 06/19/2021 [...] 25 MINUTES 01/09/2021 12:00:00 AM EST MEDENT ([facility], ) TOBACCO USE CESSATION INTERMEDIATE 3-10 MINUTES 2020 12:00:00 AM EST MEDENT ([facility]) Bronchospasm Evaluation 12/26/2020 12:00:00 AM EST MEDENT ([facility]) Plethysmography Determination Lung Volumes & Per Airway Resi st 12/26/2020 12:00:00 AM EST MEDENT [facility] DIFFUSING CAPACITY 12/26/2020 12:00:00 AM EST MEDENT ([facility]) Results ID Date Data Source [id number] 07/05/2021 08:42:00 AM EDT MEDENT ([facility]) Name Value Range Interpretation Code Description Data Cayla rce(s) Supporting Document(s) PDFReport Laboratory test result MEDENT ([facility]) FVC-Pred 3.16 L MEDENT ([facility]) FVC-Pre 2.62 L MEDENT ([facility]) FVC-LLN 2.48 L MEDENT ([facility]) FVC-%Pred-Pre 82 L MEDENT ([facility]) Fev1-Pred 2.43 L MEDENT ([facility]) Fev1-Pre 1.74 L MEDENT ([facility]) Fev1-%Pred-Pre 71 L MEDENT ([facility]) Fev1-LLN 1.85 L MEDENT ([facility]) Fev6-Pred 3.04 L MEDENT ([facility]) Fev6-Pre 2.62 L MEDENT ([facility]) Fev6-%Pred-Pre 86 L MEDENT ([facility]) Fev6-LLN 2.37 L MEDENT ([facility]) Wri9soq-Nppo 77 % MEDENT ([facility]) Ilp4hmt-Kxu 66 % MEDENT ([facility]) Gbl3lgr-%Pred-Pre 85 % MEDENT ([facility]) Khk8kaa-QMH 68 % MEDENT ([facility]) Cja1ihk-Ivuw 96 % MEDENT ([facility]) Rfd2tqf-Ppa 100 % MEDENT ([facility]) Utt1yyx-%Pred-Pre 103 % MEDENT ([facility]) FEFMax-Pre 4.25 L/E/sec MEDENT ([facility]) FEFMax-Pred 6.04 L/E/sec MEDENT ([facility]) FEFMax-LLN 4.36 L/E/sec MEDENT ([facility]) FEFMax-%Pred-Pre 70 L/E/sec MEDENT ([facility]) Xqd3853-Ndyy 2.19 L/E/sec MEDENT ([facility]) Zht7862-Yvm 1.02 L/E/sec MEDENT ([facility]) Pmv2321-%Pred-Pre 46 L/E/sec MEDENT ([facility]) Giv0297-VVR 0.97 L/E/sec MEDENT ([facility]) Phs3vul8-Uqbg 80 % MEDENT ([facility]) ExpTime-Pre 5.07 sec MEDENT ([facility]) Wse1nfu3-Tme 66 % MEDENT ([facility]) Qeq6udy6-%Pred-Pre 82 % MEDENT ([facility]) Rhl6dqb7-UER 71 % MEDENT ([facility]) ID Date Data Source [id number] 01/04/2021 01:18:00 PM EST MEDENT ([facility] [...] Little GFR Left</content>
<content>ESRD GFR <15 on CONVOLUTE TUBE WINDER</content>
<content></content> Laboratory test finding (navigational concept) 4.4 [...] Normal (applies to non-numeric results) ALESSANDRA ([facility]) ID Date Data Source [id number] 01/04/2021 01:18:00 PM EST MEDENT ([facility] [...] ([facility] MD) ID Date Data Source [id number] 10/30/2020 10:25:00 AM EST [facility] Name Value Range Interpretation Code Description Data Cayla rce(s) Supporting Document(s) SARS-CoV-2 (COVID-19) [facility] This lab was ordered by [facility] and reported by [employer]. ID Date Data Source [id number] 09/25/2020 11:50:00 AM EDT MEDENT ([facility] MD) Name Value Range Interpretation Code Description Data Cayla rce(s) Supporting Document(s) Laboratory test finding (navigational concept) 1.77 0 .4-2.0 Normal (applies to non-numeric results) MEDENT ([facility]) ID Date Data Source [id number] 09/13/2020 12:23:00 PM EDT MEDENT ([facility], ) Name Value Range Interpretation Code Description Data Cayla rce(s) Supporting Document(s) Surgical Pathology Consult Laboratory test result MEDENT ([facility], ) will discuss at follow-up ID Date Data Source [id number] 09/19/2020 10:06:00 AM EDT [facility] Surgical Pathology Report See Addendum B Sushma: PANCHITO ROSSN: [id number] Number: [id number] Date: 09/13/2020 00:00Received Date: 09/13/2020 12:24Physician(s): DELIA [...] /pwsElectronically Signed By Lisa Tracy M.D., Attending Usexxfktfxx68/20/2020 10:06:46 Gross Description[facility] [place], [place] are 5 H and Estained slides and 5 paraffin blocks labeled [id number] with thecorresponding pathology report./jrsMicroscopic DescriptionSections from the [...] developed and their performance characteristics determined by [facility] Pathology department. They have not been cleared [...] completed Smokes 1 Pack A Day MEDENT ([facility], ) Vital Signs ID Date Data Source [...] blood pressure 116 mm[Hg] 116 mm[Hg] [facility] Diastolic blood pressure 68 mm[Hg] 68 mm[Hg] MEDENT ([facility]) Heart rate 77 /min 77 /min [facility] ([facility]) Oxygen saturation in Arterial blood by Pulse oximetry 98 % 98 % [facility] Body height 63.5 [in_i] 63.5 [in_i] [facility] ([facility]) 5'3.50" Body weight 137.38 [lb_av] 137.38 [lb_av] MEDEN T ([facility]) Body mass index (BMI) [Ratio] 24.0 kg/m2 24.0 k g/m2 [facility] ([facility]) [place] body weight 115 [lb_av] 115 [lb_av] MEDEN T ([facility]) Body weight 62.313 kg 62.313 kg [facility] ([facility]) Body surface area Derived from formula 1.66 m2 1.66 m2 [facility] ([facility]) Body height 63 [in_i] 63 [in_i] [...] 16 /min MEDENT ( [facility]) Oxygen saturation in Arterial blood by Pulse oximetry 100 % 100 % [facility] ([facility]) Body temperature 96.3 [degF] 96.3 [degF] [facility] ([facility]) Body height 63.5 [in_i] 63.5 [in_i] [facility] ([facility]) 5'3.50" Body weight 142.00 [lb_av] 142.00 [lb_av] MEDEN T ([facility]) Body mass index (BMI) [Ratio] 24.8 kg/m2 24.8 k g/m2 [facility] ([facility]) [place] body weight 115 [lb_av] 115 [lb_av] MEDEN T ([facility]) Body weight 64.411 kg 64.411 kg [facility] ([facility]) Body surface area Derived from formula 1.68 m2 1.68 m2 [facility] ([facility]) Systolic blood pressure 116 mm[Hg] 116 mm[Hg] [facility] Diastolic blood pressure 72 mm[Hg] 72 mm[Hg] [facility] ([facility]) Heart rate 69 /min 69 /min [facility] ([facility]) Body surface area Derived from formula 1.68 m2 1.68 m2 [facility] ([facility]) Body weight 64.638 kg 64.638 kg [facility] ([facility]) Systolic blood pressure 110 mm[Hg] 110 mm[Hg] ON LICENSE OF [facility] ([facility]) Diastolic blood pressure 62 mm[Hg] 62 mm[Hg] [facility] ([facility]) Body height 63.5 [in_i] 63.5 [in_i] [facility] ([facility]) 5'3.50" Body weight 142.50 [lb_av] 142.50 [lb_av] MEDEN T ([facility]) Body mass index (BMI) [Ratio] 24.8 kg/m2 24.8 k g/m2 [facility] ([facility]) [place] body weight 115 [lb_av] 115 [lb_av] MEDEN T ([facility]) Body height 63.5 [in_i] 63.5 [in_i] [facility] ([facility]) 5'3.50" Diastolic blood pressure 80 mm[Hg] 80 mm[Hg] [facility] ([facility]) Body mass index (BMI) [Ratio] 25.8 kg/m2 25.8 k g/m2 [facility] ([facility]) [place] body weight 115 [lb_av] 115 [lb_av] MEDEN T ([facility]) Body weight 67.246 kg 67.246 kg [facility] ([facility]) Body surface area Derived from formula 1.71 m2 1.71 m2 [facility] ([facility]) Heart rate 66 /min 66 /min [facility] ([facility]) Oxygen saturation in Arterial blood by Pulse oximetry 98 % 98 % [facility] ([facility]) Systolic blood pressure 132 mm[Hg] 132 mm[Hg] M ON LICENSE OF [facility] ([facility]) Body temperature 98.4 [degF] 98.4 [degF] [facility] ([facility]) Body weight 148.25 [lb_av] 148.25 [lb_av] [facility] Systolic blood pressure 104 mm[Hg] 104 mm[Hg] M ON LICENSE OF [facility] ([facility]) Diastolic blood pressure 66 mm[Hg] 66 mm[Hg] [facility] ([facility]) Heart rate 78 /min 78 /min [facility] ([facility]) Oxygen saturation in Arterial blood by Pulse oximetry 98 % 98 % [facility] ([facility]) Body temperature 96.3 [degF] 96.3 [degF] [facility] ([facility]) Body height 63.5 [in_i] 63.5 [in_i] [facility] ([facility]) 5'3.50" Body weight 149.25 [lb_av] 149.25 [lb_av] MEDEN T ([facility]) Body mass index (BMI) [Ratio] 26.0 kg/m2 26.0 k g/m2 [facility] ([facility]) [place] body weight 115 [lb_av] 115 [lb_av] MEDEN T ([facility]) Body weight 67.700 kg 67.700 kg [facility] ([facility], )
--- NOTE | 2021-10-20 08:06 | ECGEPIP ---
[facility] - ED Test Date: 2021-10-19 Pat Name: DIPAK ROSS Department: Room: - Gender: Female Indirect Sales Exec: : 1955 Requested By: Curtis Macdonald Order Number: [id number] Reading MD: Deedee Garces Measurements Intervals [place] Rate: 73 P: 66 VA: 128 QRS: 75 QRSD: 76 T: 55 QT: 360 QTc: 396 Interpretive Statements Normal sinus rhythm increased rate 01/04/21 Electronically Signed on 10-20-2021 8:06:33 EST by Deedee Garces
== END 2021-10-19 14:38 | disposition left against medical advice (07) ==
LOC: M ED 13:08
DX: Z53.21 Procedure and treatment not carried out due to patient leaving prior to being seen by health care provider (principal)

== ENCOUNTER 2021-12-27 17:51 | Emergency (ER) | payer BC ==
[2021-12-27] MEDS ORDERED: HYDR-4571 (18:02)
[2021-12-27] MEDS ORDERED: OMEP40CA5 (18:02)
[2021-12-27] MEDS ORDERED: ATOR1TAB21 (18:02)
[2021-12-27] MEDS ORDERED: BUPR15TASR (18:02)
[2021-12-27] MEDS ORDERED: GABA-282 (18:02)
[2021-12-27] MEDS ORDERED: MACR100C43 (18:02)
[2021-12-27] MEDS ORDERED: ALBU8.5H (18:02)
[2021-12-27] MEDS ORDERED: NS 1,000 ML IV ONE (20:55)
[2021-12-27 21:26] LABS: APPEARANCE, URINE CLEAR (CLEAR); BACTERIA, URINE AUTO NEGATIVE (NEGATIVE); BILIRUBIN, URINE AUTO NEGATIVE (NEGATIVE); BLOOD, URINE BLOOD NEGATIVE (NEGATIVE); COLOR, URINE YELLOW (YELLOW); GLUCOSE, URINE (UA) AUTO NEGATIVE (NEGATIVE); KETONE, URINE AUTO TRACE mg/dL (NEGATIVE); LEUKOCYTE ESTERASE, URINE AUTO NEGATIVE (NEGATIVE); MUCUS, URINE SMALL (NEGATIVE); NITRITE, URINE AUTO NEGATIVE (NEGATIVE); PROTEIN, URINE AUTO NEGATIVE (NEGATIVE); RBC, URINE AUTO 11 /HPF (0-3); SQUAMOUS EPITHELIAL CELL UR AU 0 /HPF (0-6); WBC, URINE AUTO 2 /HPF (0-3)
[2021-12-27 21:36] LABS: HEMATOCRIT 41.6 % (36.0-47.0); HEMOGLOBIN 13.9 g/dl (12.0-15.5); MEAN CORPUSCULAR HEMOGLOBIN 31.1 pg (27.0-33.0); MEAN CORPUSCULAR HGB CONC 33.4 g/dl (32.0-36.5); MEAN CORPUSCULAR VOLUME 93.1 fl (80.0-96.0); PLATELET COUNT, AUTOMATED 303 10^3/uL (150-450); RED BLOOD COUNT 4.47 10^6/uL (4.00-5.40); WHITE BLOOD COUNT 8.7 10^3/uL (4.0-10.0)
[2021-12-27 21:53] LABS: ALBUMIN 3.6 GM/DL (3.2-5.2); ALT/SGPT 16 U/L (12-78); AMYLASE 62 U/L (25-115); BILIRUBIN,DIRECT < 0.1 MG/DL (0.0-0.2); BILIRUBIN,TOTAL < 0.1 MG/DL (0.2-1.0); BLOOD UREA NITROGEN 12 MG/DL (7-18); CALCIUM LEVEL 9.3 MG/DL (8.8-10.2); CARBON DIOXIDE LEVEL 28 MEQ/L (21-32); CHLORIDE LEVEL 109 MEQ/L (98-107); CREATININE FOR GFR 0.82 MG/DL (0.55-1.30); GLOMERULAR FILTRATION RATE > 60.0 (>45); GLUCOSE, FASTING 102 MG/DL (70-100); LIPASE 51 U/L (73-393); POTASSIUM SERUM 4.2 MEQ/L (3.5-5.1); SODIUM LEVEL 141 MEQ/L (136-145); TOTAL PROTEIN 7.1 GM/DL (6.4-8.2)
[2021-12-27 21:59] LABS: ATYPICAL LYMPH 2 % (0-5); BASOPHILS 1 % (0-1); EOSINOPHILS 1 % (0-3); LYMPHOCYTES 52 % (16-44); MONOCYTES 4 % (0-5); NEUTROPHILS 40 % (28-66); PLATELET ESTIMATE NORMAL (NORMAL)
[2021-12-27] MEDS ORDERED: KETOROLAC 30 MG/ML 1ML VIAL IV ONE (22:55)
[2021-12-27] MEDS ORDERED: GI COCKTAIL 50ML BTL(HYOSCYAMINE/MAALOX/LIDOCAINE VISCOUS)(1:3:1) PO ONE (23:25)
[2021-12-28 00:27] VITALS: BP 115/59
== END 2021-12-28 00:29 | disposition home or self-care (01) ==
LOC: M ED 17:51
DX: K29.00 Acute gastritis without bleeding (principal); J45.909 Unspecified asthma, uncomplicated; J44.9 Chronic obstructive pulmonary disease, unspecified; K21.9 Gastro-esophageal reflux disease without esophagitis; K58.9 Irritable bowel syndrome, unspecified; R91.1 Solitary pulmonary nodule; F17.210 Nicotine dependence, cigarettes, uncomplicated; Z79.899 Other long term (current) drug therapy; Z88.5 Allergy status to narcotic agent; Z88.8 Allergy status to other drugs, medicaments and biological substances
CPT/HCPCS: 80048; 80076; 81001; 82150; 83690; 85025; 96361; 96374; 99284; J1885

== ENCOUNTER → 2022-02-15 | Outpatient (REF) | payer BC ==
[~2022-02-15] MED LIST changes: +ALBU8.5H; +ATOR1TAB21; +BUPR15TASR; +GABA-282; +HYDR-4571; +MACR100C43; +OMEP40CA5
[2022-02-15 18:07] LABS: BACTERIA, URINE AUTO 1+ (NEGATIVE); RBC, URINE AUTO 4 /HPF (0-3); SQUAMOUS EPITHELIAL CELL UR AU 2 /HPF (0-6); WBC, URINE AUTO 2 /HPF (0-3)
== END ==
LOC: M LAB REF 16:18
PROVIDERS: ATTEND Internal Medicine
DX: F34.1 Dysthymic disorder (principal); N39.0 Urinary tract infection, site not specified

== ENCOUNTER → 2022-06-06 | Outpatient (REF) | payer BC ==
[2022-06-06 17:32] LABS: VITAMIN B12 LEVEL 356 PG/ML (247-911)
== END ==
LOC: M LAB REF 12:16
PROVIDERS: ATTEND Internal Medicine
DX: R31.9 Hematuria, unspecified (principal)

== ENCOUNTER → 2022-06-28 | Outpatient (CLI) | payer BC | LOC: M RAD 07:51 | PROVIDERS: ATTEND Internal Medicine Pulmonary Disease | DX: F17.218 Nicotine dependence, cigarettes, with other nicotine-induced disorders (principal); J47.9 Bronchiectasis, uncomplicated ==

== ENCOUNTER → 2022-07-03 | Outpatient (CLI) | payer BC ==
[~2022-07-03] MED LIST changes: +ISOVUE-370 76% 100ML VIAL As Ordered ONE
== END ==
LOC: M RAD 07:42
PROVIDERS: ATTEND Internal Medicine
DX: F03.90 Unspecified dementia, unspecified severity, without behavioral disturbance, psychotic disturbance, mood disturbance, and anxiety (principal); R31.0 Gross hematuria; N85.2 Hypertrophy of uterus
CPT/HCPCS: 70551; 74178; Q9967

== ENCOUNTER → 2022-07-25 | Outpatient (REF) | payer BC ==
[~2022-07-25] MED LIST changes: -ISOVUE-370 76% 100ML VIAL As Ordered ONE
[2022-07-25 15:00] LABS: APPEARANCE, URINE MANUAL CLEAR (CLEAR); COLOR, URINE MANUAL YELLOW (YELLOW)
[2022-07-25 15:02] LABS: BILIRUBIN, URINE MANUAL NEGATIVE (NEGATIVE); BLOOD URINE MANUAL POSITIVE (NEGATIVE); GLUCOSE, URINE (UA) MANUAL NEGATIVE (NEGATIVE); KETONE, URINE MANUAL NEGATIVE (NEGATIVE); LEUKOCYTE ESTERASE, URINE MAN NEGATIVE (NEGATIVE); NITRITE, URINE MANUAL NEGATIVE (NEGATIVE); PROTEIN, URINE MANUAL 1+ mg/dL (NEGATIVE); UROBILINOGEN, URINE MANUAL NORMAL (NORMAL)
[2022-07-25 15:38] LABS: BACTERIA, URINE MOD AMOUNT; HYALINE CAST, URINE NONE SEEN /lpf (0-1); SQUAMOUS EPITHELIAL CELL URINE MOD AMOUNT /hpf (SMALL AMT); WBC, URINE 0-1 /hpf (0-3)
== END ==
LOC: M SMT 13:26
PROVIDERS: ATTEND Nurse Practitioner Women's Health
DX: R31.29 Other microscopic hematuria (principal)

== ENCOUNTER 2022-08-29 12:23 | Emergency (ER) | payer BC ==
[~2022-08-29] VITALS: Ht 160 cm; Wt 73.8 kg
[2022-08-29] MEDS ORDERED: COMBIVENT RESPIMAT 100-20MCG INHALER 4GM INH SCH (13:00)
[2022-08-29] MEDS ORDERED: dexameTHASONE 20MG/5ML VIAL (J1100 PER 1MG) IV ONE (13:00)
[2022-08-29 13:20] LABS: BASO % 0.3 % (0.0-1.0); EOS # 0.1 10^3/uL (0.0-0.5); EOS % 1.4 % (0.0-3.0); HEMATOCRIT 40.4 % (36.0-47.0); HEMOGLOBIN 13.9 g/dl (12.0-15.5); LYMPH # 2.6 10^3/uL (1.5-5.0); MEAN CORPUSCULAR HEMOGLOBIN 32.6 pg (27.0-33.0); MEAN CORPUSCULAR HGB CONC 34.4 g/dl (32.0-36.5); MEAN CORPUSCULAR VOLUME 94.6 fl (80.0-96.0); MONO # 0.4 10^3/uL (0.0-0.8); MONO % 6.1 % (2.0-8.0); NEUTROPHILS # 3.8 10^3/uL (1.5-8.5); NEUTROPHILS % 54.8 % (36.0-66.0); PLATELET COUNT, AUTOMATED 272 10^3/uL (150-450); RED BLOOD COUNT 4.27 10^6/uL (4.00-5.40)
[2022-08-29 13:30] LABS: INR 0.87; PROTHROMBIN TIME 12.2 SECONDS (12.7-14.5)
[2022-08-29 13:31] LABS: PARTIAL THROMBOPLASTIN TIME 35.5 SECONDS (25.9-37.0)
[2022-08-29 14:03] LABS: CK-MB VALUE MASS < 1.0 NG/ML (<3.6); CPK CREATINE PHOSPHOKINASE 72 U/L (26-192); MB/CK RELATIVE INDEX 1.39 (< OR =4)
[2022-08-29 14:12] LABS: ALBUMIN 3.7 GM/DL (3.2-5.2); ALT/SGPT 20 U/L (12-78); BILIRUBIN,DIRECT < 0.1 MG/DL (0.0-0.2); BILIRUBIN,TOTAL 0.2 MG/DL (0.2-1.0); BLOOD UREA NITROGEN 11 MG/DL (7-18); CALCIUM LEVEL 9.1 MG/DL (8.8-10.2); CARBON DIOXIDE LEVEL 24 MEQ/L (21-32); CHLORIDE LEVEL 109 MEQ/L (98-107); CREATININE FOR GFR 0.77 MG/DL (0.55-1.30); FREE T4 0.99 NG/DL (0.76-1.46); GLOMERULAR FILTRATION RATE > 60.0 (>45); GLUCOSE, FASTING 96 MG/DL (70-100); LIPASE 128 U/L (73-393); NT-PRO BNP 113 PG/ML (<125); POTASSIUM SERUM 4.5 MEQ/L (3.5-5.1); SODIUM LEVEL 142 MEQ/L (136-145); THYROID STIMULATING HORMONE 0.856 uIU/ML (0.358-3.740); TOTAL PROTEIN 6.9 GM/DL (6.4-8.2)
[2022-08-29] MEDS ORDERED: KETOROLAC 30 MG/ML 1ML VIAL IV ONE (15:05)
[2022-08-29] MEDS ORDERED: ISOVUE-370 76% 100ML VIAL As Ordered ONE (15:11)
[2022-08-29 15:44] LABS: CK-MB VALUE MASS < 1.0 NG/ML (<3.6); CPK CREATINE PHOSPHOKINASE 69 U/L (26-192); MB/CK RELATIVE INDEX 1.45 (< OR =4)
[2022-08-29] MEDS ORDERED: ALBU8.5H INH (17:02)
[2022-08-29] MEDS ORDERED: PRED10TA2 PO (17:02)
[2022-08-29 17:11] VITALS: BP 113/60
== END 2022-08-29 17:22 | disposition home or self-care (01) ==
LOC: M ED 12:23
DX: R07.89 Other chest pain (principal); J44.9 Chronic obstructive pulmonary disease, unspecified; C18.9 Malignant neoplasm of colon, unspecified; F17.200 Nicotine dependence, unspecified, uncomplicated; Z88.5 Allergy status to narcotic agent; Z88.8 Allergy status to other drugs, medicaments and biological substances
CPT/HCPCS: 71045; 71275; 80048; 80076; 82550; 82553; 83690; 83880; 84439; 84443; 84484; 85025; 85610; 85730; 87486; 87581; 87633; 87798; 93005; 93041; 94640; 94664; 94760; 96374; 96375; 99285; J1100; J1885; Q9967

== ENCOUNTER → 2022-10-15 | Outpatient (REF) | payer BC ==
[~2022-10-15] MED LIST changes: +PRED10TA2 PO
[2022-10-15 18:37] LABS: FERRITIN 58.1 NG/ML (7.3-270.7); PERCENT SATURATION 24.8 % (13.2-45.0)
[2022-10-15 22:29] LABS: CA19-9 TUMOR MARKER,CARBOHYDRA 20.5 U/ML (<35.0)
== END ==
LOC: M LAB REF 11:20
PROVIDERS: ATTEND Internal Medicine
DX: D64.9 Anemia, unspecified (principal); R10.13 Epigastric pain

== ENCOUNTER → 2023-01-03 | Outpatient (REF) | payer BC | LOC: M LAB REF 12:14 | PROVIDERS: ATTEND Internal Medicine | DX: K86.1 Other chronic pancreatitis (principal) ==

== ENCOUNTER → 2023-01-15 | Outpatient (CLI) | payer BC ==
[~2023-01-15] MED LIST changes: +PROHANCE 279.3MG/ML 15ML VIAL As Ordered ONE
== END ==
LOC: M RAD 08:33
PROVIDERS: ATTEND Internal Medicine Gastroenterology
DX: K85.90 Acute pancreatitis without necrosis or infection, unspecified (principal)

== ENCOUNTER 2023-02-07 14:22 | Emergency (ER) | payer BC ==
[~2023-02-07] VITALS: Ht 160 cm; Wt 62.5 kg
[~2023-02-07 14:22] MED LIST changes: -PROHANCE 279.3MG/ML 15ML VIAL As Ordered ONE
[2023-02-07] MEDS ORDERED: MORPHINE 4 MG/ML 1ML VIAL IV ONE ×2 (15:15→18:15)
[2023-02-07] MEDS ORDERED: ONDANSETRON 4MG 2ML VIAL IV ONE ×2 (15:15→21:05)
[2023-02-07] MEDS ORDERED: NS 1,000 ML IV ONE (15:15)
[2023-02-07 15:24] LABS: BASO % 0.2 % (0.0-1.0); EOS # 0.1 10^3/uL (0.0-0.5); EOS % 0.9 % (0.0-3.0); HEMATOCRIT 44.2 % (36.0-47.0); HEMOGLOBIN 15.6 g/dl (12.0-15.5); LYMPH # 1.9 10^3/uL (1.5-5.0); LYMPH % 30.4 % (24.0-44.0); MEAN CORPUSCULAR HEMOGLOBIN 33.3 pg (27.0-33.0); MEAN CORPUSCULAR HGB CONC 35.3 g/dl (32.0-36.5); MEAN CORPUSCULAR VOLUME 94.4 fl (80.0-96.0); MONO # 0.5 10^3/uL (0.0-0.8); MONO % 7.1 % (2.0-8.0); NEUTROPHILS # 3.9 10^3/uL (1.5-8.5); NEUTROPHILS % 61.1 % (36.0-66.0); PLATELET COUNT, AUTOMATED 348 10^3/uL (150-450); RED BLOOD COUNT 4.68 10^6/uL (4.00-5.40); WHITE BLOOD COUNT 6.3 10^3/uL (4.0-10.0)
[2023-02-07 15:46] LABS: LIPASE 38 U/L (12-53)
[2023-02-07 15:48] LABS: ALBUMIN 3.5 G/DL (3.2-5.2); ALKALINE PHOSPHATASE 751 U/L (46-116); ALT/SGPT 339 U/L (7.0-40); AST/SGOT 208 U/L (<34); BILIRUBIN,DIRECT 0.8 MG/DL (<0.4); BILIRUBIN,TOTAL 1.3 MG/DL (0.3-1.2); BLOOD UREA NITROGEN 12 MG/DL (9-23); CALCIUM LEVEL 9.6 MG/DL (8.3-10.6); CARBON DIOXIDE LEVEL 28 MMOL/L (20-31); CHLORIDE LEVEL 103 MMOL/L (98-107); CREATININE FOR GFR 0.56 MG/DL (0.55-1.30); GLOMERULAR FILTRATION RATE > 60.0 (>45); GLUCOSE, FASTING 109 MG/DL (74-106); POTASSIUM SERUM 4.1 MMOL/L (3.5-5.1); SODIUM LEVEL 139 MMOL/L (136-145); TOTAL PROTEIN 6.8 G/DL (5.7-8.2)
[2023-02-07] MEDS ORDERED: PANTOPRAZOLE 40MG VIAL IV ONE (16:25)
[2023-02-07] MEDS ORDERED: HYDROMORPHONE HCL 0.5 MG/ 0.5 ML SYRINGE IV PRN (16:25)
[2023-02-07] MEDS ORDERED: ISOVUE-370 76% 100ML VIAL As Ordered ONE (16:32)
[2023-02-07] MEDS: MORPHINE 2 MG/ML 1ML VIAL IV PRN ×2 (20:05→21:08)
[2023-02-07] MEDS ORDERED: MORPHINE 2 MG/ML 1ML VIAL IV PRN (21:20)
[2023-02-07 22:23] VITALS: BP 120/66
== END 2023-02-07 22:31 | disposition short-term general hospital (02) ==
LOC: M ED 14:22
DX: R10.9 Unspecified abdominal pain (principal); K56.699 Other intestinal obstruction unspecified as to partial versus complete obstruction; K86.89 Other specified diseases of pancreas; F17.200 Nicotine dependence, unspecified, uncomplicated
CPT/HCPCS: 74177; 80048; 80076; 83690; 85025; 93041; 94760; 96365; 96366; 96367; 96375; 96376; 99284; C9113; J1170; J2270; J2405

== ENCOUNTER → 2023-02-19 | Outpatient (REF) | payer BC ==
[2023-02-19 13:28] LABS: CA19-9 TUMOR MARKER,CARBOHYDRA 98.8 U/ML (<35.0)
== END ==
LOC: M LAB REF 11:26
PROVIDERS: ATTEND Internal Medicine
DX: C25.3 Malignant neoplasm of pancreatic duct (principal)